=== PATIENT | female | born 1960 | race Caucasian/White ===

== ENCOUNTER 2021-09-02 10:12 | Outpatient (CLI) | payer OTHER, SELFPAY ==
--- NOTE | 2021-09-02 | ECG_ITS ---
Measurements Intervals [place] Rate: 62 P: 20 WA: 155 QRS: 21 QRSD: 97 T: 47 QT: 429 QTc: 437 Interpretive Statements SINUS RHYTHM INCOMPLETE RIGHT BUNDLE BRANCH BLOCK BASELINE ARTIFACT- I, III, AVR, AVL BORDERLINE ECG Electronically Signed On 09-02-2021 19:33:26 [employer]ARD[employer]ACH[employer]CH[employer]IC by Jovanni Cooney D.O.
--- NOTE | ~2021-09-02 | XR_ITS ---
EXAMINATION: XR chest 2V 09/02/2021 10:41 INDICATION: Dyspnea. Hypertension. PROCEDURE: 2 view chest COMPARISON: 02/24/2017 FINDINGS: The lungs are clear. The cardiomediastinal silhouette is within normal limits. There are no pleural effusions. There is no pneumothorax suspected. There is dextroscoliosis of the thoracic spine. IMPRESSION: 1: NO ACUTE CARDIOPULMONARY DISEASE. Reviewed, dictated and finalized at location A. BEADER
== END 2021-09-02 10:13 | disposition home or self-care (01) ==
PROVIDERS: PCP Registered Nurse; Visit Provider Registered Nurse
DX: R06.09 Other forms of dyspnea (principal); I45.10 Unspecified right bundle-branch block
CPT/HCPCS: 71046; 93005

== ENCOUNTER 2022-07-01 08:54 | Outpatient (CLI) | payer OTHER, SELFPAY ==
--- NOTE | ~2022-07-01 | MM_ITS ---
EXAMINATION: MM screening rohit BI w moises HISTORY: Screening mammogram TECHNIQUE: Craniocaudal and mediolateral oblique 3-D tomosynthesis images were obtained and synthetic 2-D images were generated. CAD analysis was submitted and interpreted. COMPARISON: 06/29/2018, 02/24/2017 bilateral screening mammogram examinations BREAST PARENCHYMAL COMPOSITION: There are scattered areas of fibroglandular density. FINDINGS: There is no evidence of suspicious mass, calcification, or architectural distortion to sugg est malignancy in either breast. There has been no suspicious interval change. IMPRESSION: 1. No mammographic evidence of malignancy. 2. Recommend routine screening mammography in one year. BI-RADS Category 1: Negative Reviewed, dictated and finalized at location A.
== END 2022-07-01 08:55 | disposition home or self-care (01) ==
LOC: ANHIMG 08:57
PROVIDERS: PCP Registered Nurse; Visit Provider Registered Nurse
DX: Z12.31 Encounter for screening mammogram for malignant neoplasm of breast (principal)
CPT/HCPCS: 77063; 77067

== ENCOUNTER 2022-10-18 12:25 | Outpatient (CLI) | payer OTHER, SELFPAY ==
--- NOTE | ~2022-10-18 | US_ITS ---
US breast LT limited DATE: 10/18/2022 13:03 INDICATION: Possible-like discharge from the breast. Recent trauma. Recent course of antibiotic thera py. TECHNIQUE: Limited real-time imaging of the left breast COMPARISON: 07/01/2022 bilateral screening mammogram FINDINGS: Approximately 3.9 x 2.4 x 8.1 mm sonolucency is noted in the subareolar area of the left br east which may be cysts or dilated ducts. No suspicious mass or shadowing or other suspicious findings noted. IMPRESSION: BI-RADS Category 2: Benign Recommendation routine annual mammographic screening Reviewed, dictated and finalized at Location A. Reviewed, dictated and finalized at location A. ADMINISTRATOR
== END 2022-10-18 12:26 | disposition home or self-care (01) ==
LOC: ANHIMG 12:25
PROVIDERS: PCP Registered Nurse; Visit Provider Registered Nurse
DX: N64.52 Nipple discharge (principal)
CPT/HCPCS: 76642

== ENCOUNTER 2023-11-28 13:53 | Outpatient (CLI) | payer MEDICARE, SELFPAY ==
--- NOTE | ~2023-11-28 | MM_ITS ---
EXAMINATION: MM screening rohit BI w moises HISTORY: Screening mammogram TECHNIQUE: Craniocaudal and mediolateral oblique 3-D tomosynthesis images were obtained and synthetic 2-D images were generated. CAD analysis was submitted and interpreted. COMPARISON: 10/18/2022 Limited left breast ultrasound 07/01/2022, 06/29/2018 bilateral screening mammogram examinations BREAST PARENCHYMAL COMPOSITION: There are scattered areas of fibroglandular density. FINDINGS: There is no evidence of suspicious mass, calcification, or architectural distortion to sugg est malignancy in either breast. There has been no suspicious interval change. IMPRESSION: 1. No mammographic evidence of malignancy. 2. Recommend routine screening mammography in one year. BI-RADS Category 1: Negative Reviewed, dictated and finalized at location A. GER ECONOMIC
== END 2023-11-28 13:54 | disposition home or self-care (01) ==
PROVIDERS: PCP Registered Nurse; Visit Provider Registered Nurse
DX: Z12.31 Encounter for screening mammogram for malignant neoplasm of breast (principal)
CPT/HCPCS: 77063; 77067

== ENCOUNTER 2024-03-05 02:17 | Day surgery (SDC) | payer MEDICARE, SELFPAY ==
[2024-02-20 15:23] VITALS: BMI 30.9
[2024-03-05 09:42] VITALS: BP 134/84; PULSE 102; RESP 18; TEMP 36.1; O2SAT 99
[2024-03-05] MEDS: LACTATED RINGERS 1,000 ML 150 ML IV CONT (09:52)
--- NOTE | 2024-03-05 10:11 | WPDANESEPPF ---
Anes - Initial Pre Proc Eval Procedure: Operation Date: 03/05/24 11:00 Proposed Procedures p Colonoscopy - Nikita Mendoza MD Date/Time: 03/05/24 10:11 Surgeon: Nikita Mendoza MD Pre Op Diagnosis: hx colon polyps Patient Data Age: 63 Gender: F Height: 1.68 m Weight: 82.3 kg Last Vital Signs Temp 97 F L 03/05/24 09:42 Pulse 102 H 03/05/24 09:42 Resp 18 03/05/24 09:42 BP 134/84 03/05/24 09:42 Pulse Ox 99 03/05/24 09:42 O2 Del Method Room Air 03/05/24 09:42 Allergies Allergy/AdvReac Type Severity Reaction Status Date / Time No Known Allergies Allergy Unverified 03/05/24 09:41 Home Medications Medication Instructions Recorded Confirmed Type amlodipine 5 mg tablet 5 mg PO DAILY 02/20/24 02/20/24 History cetirizine 10 mg tablet 10 mg PO DAILY 02/20/24 02/20/24 History gabapentin 600 mg tablet 600 mg PO TID PRN Pain 02/20/24 02/20/24 History gemfibrozil 600 mg tablet 600 mg PO BID 02/20/24 02/20/24 History hydrochlorothiazide 25 mg tablet 25 mg PO DAILY 02/20/24 02/20/24 History losartan 50 mg tablet 50 mg PO DAILY 02/20/24 02/20/24 History Patient hx anesthesia problems: none Family hx anesthesia problems: none Results Review: All pre-operative results and documents have been reviewed as part of the pre-operative evaluation. [facility] Social History Social History Smoking packs per day: 2 Smoking cigarettes per day: 40.0 Years smoked: 40 Smoking pack-years: 80.00 Smoking status: Former smoker Tobacco type: cigarettes Alcohol intake: current Drinks per week: 10 Spiritual care concerns: No Anes - Eval Final PreProcedure Day of Procedure 03/05/24 10:11 Patient weight: normal Heart: regular rate and rhythm Lungs: clear to auscultation Airway: Mallampati scale class II Neurological: alert and oriented Last oral intake: >/= 8 hours ASA classification: II Emergent: no Anesthetic plan: proceed Anesthesia type and monitoring: general and standard monitoring Results Review: All pre-operative results and documents have been reviewed as part of the pre-operative evaluation. Informed Consent: The patient's anesthetic plan and its attendant risks and benefits were discussed with the patient/family/POA. Questions were solicited and answers provided to the satisfaction of the patient/family/POA.
--- NOTE | 2024-03-05 10:35 | PM.HPGS ---
History of Present Illness History of Present Illness Consent: Risks, benefits, and alternatives have been discussed and questions answered. Patient agrees to proceed with procedure. Chief complaint: hx colon polyps Narrative: Kiki Sunshine is a 63 year old female with colon polyp 5-6 years ago Review of Systems Review of Systems: All systems reviewed & are unremarkable except as noted in HPI and below PMFSH Past Medical History Medical History (Updated 03/05/24 @ 10:37 by Nikita Mendoza MD) Colon polyp Social History Social History Smoking packs per day: 2 Smoking cigarettes per day: 40.0 Years smoked: 40 Smoking pack-years: 80.00 Smoking status: Former smoker Tobacco type: cigarettes Alcohol intake: current Drinks per week: 10 Spiritual care concerns: No Meds Home Medications and Allergies Home Medications Medication Instructions Recorded Confirmed Type amlodipine 5 mg tablet 5 mg PO DAILY 02/20/24 02/20/24 History cetirizine 10 mg tablet 10 mg PO DAILY 02/20/24 02/20/24 History gabapentin 600 mg tablet 600 mg PO TID PRN Pain 02/20/24 02/20/24 History gemfibrozil 600 mg tablet 600 mg PO BID 02/20/24 02/20/24 History hydrochlorothiazide 25 mg tablet 25 mg PO DAILY 02/20/24 02/20/24 History losartan 50 mg tablet 50 mg PO DAILY 02/20/24 02/20/24 History Allergies Allergy/AdvReac Type Severity Reaction Status Date / Time No Known Allergies Allergy Unverified 03/05/24 09:41 Vital Signs Vital Signs - 24 hr 03/05/24 09:42 Temperature 97 F L Pulse Rate 102 H Respiratory Rate 18 Blood Pressure 134/84 Pulse Oximetry 99 Oxygen Delivery Room Air Exam Const: General: comfortable and no acute distress HENMT: Face/Nose/Sinus: Normal nares present Eyes: General: appearance normal, both eyes and all related structures Neck: Neck: no JVD Resp: Auscultation: clear to auscultation bilaterally Cardio: Rate: regular rate Rhythm: regular rhythm GI: Inspection: non-distended GI Palp: Yes Soft to palpation Skin: General skin exam: normal color Neuro: General: gait normal Speech: normal speech Extrem: General: normal to inspection Psych: Mental Status: mental status grossly normal Assessment and Plan Assessment and plan (1) Colon polyp: Code(s): K63.5 - Polyp of colon Status: Acute Assessment and Plan: colonoscopy
[2024-03-05 10:53] VITALS: BP 133/62; PULSE 78; RESP 21; O2SAT 100
[2024-03-05 11:03] VITALS: BP 134/63; PULSE 68; RESP 22; O2SAT 100
[2024-03-05 11:13] VITALS: BP 145/76; PULSE 64; RESP 22; O2SAT 100
== END 2024-03-05 11:25 | disposition home or self-care (01) ==
PROVIDERS: PCP Registered Nurse; Visit Provider Internal Medicine Gastroenterology
PROC: 0DJD8ZZ Inspection of Lower Intestinal Tract, Via Natural or Artificial Opening Endoscopic (ICD-10-PCS; CPT 45378; principal; 2024-03-05 11:00)
DX: Z12.11 Encounter for screening for malignant neoplasm of colon (principal); K63.5 Polyp of colon; K64.8 Other hemorrhoids; K57.30 Diverticulosis of large intestine without perforation or abscess without bleeding; Z87.891 Personal history of nicotine dependence
CPT/HCPCS: 45385; 88305; J2704; J7120

== ENCOUNTER 2024-05-02 08:52 | Outpatient (CLI) | payer MEDICARE, SELFPAY ==
--- NOTE | ~2024-05-02 | DEXA_ITS ---
Bone Density Report Name: KAYLEY DYKES Age: 63 Sex: Female Ethnicity: White Date of : 1960 Indication: postmenopausal; screening for osteoporosis; height loss; history of glucocorticoids; Referring Provider: BEATA, CARLOZ Study: Bone densitometry was performed. Exam Date: May 02, 2024 Accession number: [id number] Bone Density: Region BMD T-score Z-score Classification AP Spine(L1-L4) 1.070 0.2 2.0 Normal Femoral Neck (Left) 0.717 -1.2 0.4 Osteopenia Total Hip (Left) 0.968 0.2 1.5 Normal Femoral Neck (Right) 0.778 -0.6 0.9 Normal Total Hip (Right) 1.036 0.8 2.0 Normal Total Hip Mean 1.002 0.5 1.8 Normal World Health Organization criteria for BMD impression classify patients as: Normal (T-score at or above -1.0), Osteopenia (T-score between -1.0 and -2.5), or Osteoporosis (T-score at or below -2.5). 10-year Fracture Risk(1): Major Osteoporotic Fracture 15% Hip Fracture 1.9% Reported Risk Factors: [place] (), Neck BMD=0.717, BMI=31.0, glucocorticoids, alcohol use (1) FRAX(R) Version 3.08. Fracture probability calculated for an untreated patient. Fracture probability may be lower if the patient has received treatment. Previous Exams: Region Exam Age BMD T-score BMD Change BMD Change Date g/cm2 vs Baseline vs Previous Total Hip(Left) 05/02/2024 63 0.968 0.2 0.063 (7.0%)* 0.063 (7.0%)* 01/01/2019 58 0.905 -0.3 Total Hip(Right) 05/02/2024 63 1.036 0.8 0.122 (13.4%)* 0.122 (13.4%)* 01/01/2019 58 0.913 -0.2 *Denotes significance at 95% confidence level, LSC for Total Hip = 0.027 g/cm2 Clinical Information Provided by Patient: Has taken Glucocorticoids Has 3 or more alcoholic drinks per day Has used the following medications: Vitamin D Patient maximum height was 67.0 Menopause Age: 38 No regular weight bearing exercise Drinks caffeinated beverages Onset of menses at age 11 Number of children 1 Impression: The patient has low bone mass, based on the Left Femoral Neck T-score. The patient has an estimated ten-year risk of hip fracture of 1.9% and an estimated ten-year risk of major fracture of 15%, based on the WHO FRAX algorithm. The patient has risk factors, including: excessive alcohol use, history of glucocorticoid therapy. No significant bone loss was observed. Discussion: BONE DENSITY IS LOW AT ONE OR MORE SKELETAL SITES. This patient's lowest T-score is low at one or more skeletal sites. It meets the Wo
== END 2024-05-02 08:53 | disposition home or self-care (01) ==
PROVIDERS: PCP Registered Nurse; Visit Provider Registered Nurse
DX: Z78.0 Asymptomatic menopausal state (principal); M85.852 Other specified disorders of bone density and structure, left thigh
CPT/HCPCS: 77080

== ENCOUNTER 2025-05-02 06:53 | Outpatient (CLI) | payer MEDICARE, SELFPAY ==
--- NOTE | ~2025-05-02 | XR_ITS ---
Clinical Indication: Hypoxemia PA and lateral views of the chest: Comparison: 09/02/2021 Findings: Patchy left lower lobe airspace consolidations compatible with pneumonia. Right lung clear. Cardiomediastinal silhouette is within normal limits. Bones and soft tissues are unremarkable. Impression: Patchy left lower lobe pneumonia. Reviewed, dictated and finalized at location . Impression: Patchy left lower lobe pneumonia.
== END 2025-05-02 06:54 | disposition home or self-care (01) ==
PROVIDERS: PCP Registered Nurse; Visit Provider Registered Nurse
DX: R09.02 Hypoxemia (principal); R91.8 Other nonspecific abnormal finding of lung field
CPT/HCPCS: 71046

== ENCOUNTER 2025-05-03 15:21 | Inpatient (IN) | payer MEDICARE, SELFPAY ==
--- NOTE | ~2025-05-03 | XR_ITS ---
XR chest 2V Ordering provider: SRAVAN Fournier History: 64 years Female with . PNA . Comparison: May 03, 2025 FINDINGS: MEDIASTINUM: The cardiac silhouette is not enlarged. LUNGS: No effusions or pneumothorax. Opacification in the left lung base is seen suggestive of atelec tasis versus pneumonia. OTHER: No free air under the diaphragm. Degenerative spine. IMPRESSION: Left basilar atelectasis versus pneumonia. Reviewed, dictated and finalized at location A.
--- NOTE | ~2025-05-03 | CT_ITS ---
CTA brain carotid Ordering provider: Al Méndez MD History: . dizziness, difficulty speaking . Comparison: None. Technique: CT angiogram head and neck was performed following timed intravenous injection of contrast . Thin slice axial images and reformatted coronal images were obtained. Three dimensional reformatted images of the brain were also obtained using a [employer] workstation. Radiation reduction technique ut ilized. The dose-length product was 1521.927 mGy-cm. FINDINGS: HEAD: --ANTERIOR AND MIDDLE CEREBRAL ARTERIES AND BRANCHES: Normal caliber and contour. --INTERNAL CAROTID ARTERIES: Mild atherosclerotic changes. No significant stenosis. No occlusion. --BASILAR ARTERY AND BRANCHES: Normal caliber and contour. No atheromatous disease. --POSTERIOR CEREBRAL ARTERIES: Normal caliber and contour --POSTERIOR COMMUNICATING ARTERIES: Not visualized which is probably related to congenital absence or small size. --ANEURYSM: None visualized. --BRAIN: Brain atrophy with deep white matter ischemic changes. --BONES AND SUPERFICIAL SOFT TISSUES: Normal. --PARANASAL SINUSES AND MASTOIDS: Well aerated. NECK: --RIGHT CERVICAL CAROTID SYSTEM: Mild atheromatous disease of the carotid bulb and proximal internal carotid artery without significant stenosis. Percent stenosis per NASCET criteria is 20%. No carotid dissection. Otherwise, no significant atheromatous disease or stenosis of the cervical carotid syste m. --LEFT CERVICAL CAROTID SYSTEM: Mild atheromatous disease of the carotid bulb and proximal internal c arotid artery without significant stenosis. Percent stenosis per NASCET criteria is 60%. No carotid dissection. Otherwise, no significant atheromatous disease or stenosis of the cervical carotid system. --VERTEBRAL ARTERIES: Normal caliber and contour. --VISUALIZED AORTIC ARCH AND BRANCHING VESSELS: Mild atheromatous disease but no significant stenosis . --SOFT TISSUES: Left basilar atelectasis versus pleural effusion. Dependent atelectatic changes. --CERVICAL SPINE: Age appropriate degenerative changes. IMPRESSION: 1. Normal CTA head. 2. CTA neck. Percent stenosis per NASCET criteria is 20% on the right and 60% on the left . 3. Left basilar atelectasis versus pneumonia with pleural effusion. Reviewed, dictated and finalized at location A. IMPRESSION: 1. Normal CTA head. 2. CTA neck. Percent stenosis per NASCET criteria is 20% on the right and 60 % on the left . 3. Left basilar atelectasis versus pneumonia with pleural effusion.
--- NOTE | ~2025-05-03 | XR_ITS ---
XR chest 2V Ordering provider: Dylan Mills MD History: 64 years Female with . SOB . Comparison: May 02, 2025 FINDINGS: MEDIASTINUM: The cardiac silhouette is not enlarged. LUNGS: No effusions or pneumothorax. Minimal opacification in the left lower lobe is seen suggestive of atelectasis versus pneumonia. No significant change from previous examination. OTHER: No free air under the diaphragm. Degenerative spine. IMPRESSION: Left basilar atelectasis versus pneumonia with no change from previous examination. Reviewed, dictated and finalized at location A. IMPRESSION: Left basilar atelectasis versus pneumonia with no change from previous examinat ion.
--- OUTSIDE RECORDS SUMMARY | 2025-05-03 15:23 | XMS_ITS | Clinical Summary ---
Author Organization [facility] Address [address], [address] [address] Phone Care Team Providers Care Plaster [employer] Worker Name Role Phone Cornelius vOiedo MANOLO Primary Care Provider [phone] Social History Tobacco Use Types Packs/Day Years Used Date Smoking Tobacco: Never Assessed Comments Unknown Sex and Gender Information Value Date Recorded Sex Assigned at Not on file Legal Sex Female 10:31 PM CDT Gender Identity Not on file Sexual Orientation Not on file Plan of Treatment Health Maintenance Due Date Last Done Comments DEXA Bone Density 1960 Hepatitis C Virus (HCV) Screening 1960 Pap Smear 1979 Cervical Cancer Screening (CCS) 1988 HPV/Cotest 1988 Cologuard 2008 Immunochemical Fecal Occult Blood 2008 Mammogram 2008 Pneumococcal Immunization (50+ years) (1 of 1 - PCV) 2008 Zoster Immunization (1 of 2) 2008 Colonoscopy 12/17/2023 12/17/2018 Colorectal Cancer Screening 12/17/2023 Influenza Immunization (#1) 06/23/202406/23, 07/10/2018, 06/30/2017, Additional history exists SARS-COV-2 Immunization (3 - season) 2024 12/21/2020, 11/30/2020 Respiratory Syncytial Virus (RSV) Immunization (Adult) (1 - 1-dose 75+ series) 2033 DTaP/Tdap/Td Immunization Discontinued 02/22/2017 TdaP Immunization Completed 02/22/2017 Hepatitis B Immunization Aged Out No longer eligible based on patient's age to complete this topic Meningococcal Immunization (ACWY) Aged Out No longer eligible based on patient's age to complete this topic Rotavirus Immunization Aged Out No lo nger eligible based on patient's age to complete this topic Procedures Procedure Name Priority Date/Time Associated Diagnosis Comments COLONOSCOPY Routine 12/17/2018 from Last 3 Months or Most Recently Relevant to Health Maintenance Results * COLONOSCOPY (12/17/2018) us Richardson Kim DO PROCEDURE/MINOR SURGICAL ORDERA BLES Final Result from Last 3 Months or Most Recently Relevant to Health Maintenance Care Teams Pl[employer] And Stucco Worker Relationship Specialty Start Date End Date Cornelius Oviedo APRN [address] [place] [address] PCP - General Advanced Practice Nurse 09/05/18
--- OUTSIDE RECORDS SUMMARY | 2025-05-03 15:23 | XMS_ITS | Encounter Summary ---
Author Organization [facility] Address [address] [place] [id number] Care Team Providers Care [facility] Worker Name Role Phone Cornelius Oviedo BETY Primary Care Provider [phone] Encounter Details Date Type Department Care Team (Late st Contact Info) Description 01/03/2024 Abstract [facility], [facility] [address] [place], [place] [id number] Ailyn Aggarwal MA Social History Tobacco Use Types Packs/Day Years Used Date Smoking Tobacco: Former Cigarettes Q uit: 2012 Smokeless Tobacco: Never Alcohol Use Standard Drinks/Week Comments Yes 13.3 (1 standard drink = 0.6 oz pure alcohol) Comments Unknown Sex and Gender Information Value Date Recorded Sex Assigned at Not on file Legal Sex Female 10:59 AM MEDICAL BILLER/CODER Gender Identity Not on file Sexual Orientation Not on file documented as of this encounter Plan of Treatment Upcoming Encounters Date Type Department Care Team (Late st Contact Info) Description 04/14/2026 9:00 AM CDT Office Visit [facility], [place] [address] [place] [address] Osito Franklin MD [facility], [address] [place], [place] [address] documented as of this encounter Procedures Procedure Name Priority Date/Time Associated Diagnosis Comments COMPREHENSIVE METABOLIC PANEL Routine 01/24/2023 LIPID PANEL Routine 01/24/2023 CBC, MANUAL DIFF Routine 01/24/2023 documented in this encounter Results * COMPREHENSIVE METABOLIC PANEL (01/24/2023) Pathologist [facility] SODIUM S/P/B 139 GLUCOSE 99 mg/dL AST 48.5 BUN 12 CREATININE S/P/B 0.51 0.5 - 1.0 CALCIUM S/P/B 10.4 POTASSIUM S/P/B 4.0 CHLORIDE S/P/B 96 ALT 43.5 GFR ESTIMATE 104 us Default History Genericprovider LABORATORY Final Result * LIPID PANEL (01/24/2023) Pathologist [facility] CHOLESTEROL 201.6 TRIGLYCERIDES 107 HDL 105.2 LDL (CALCULATED) 78.3 us Default History Genericprovider LABORATORY Final Result * CBC, MANUAL DIFF (01/24/2023) Pathologist [facility] WBC 5.9 HGB 14.2 HCT 43.6 PLT 193 us Default History Genericprovider LABORATORY Final Result documented in this encounter Visit Diagnoses Not on filedocumented in this encounter Care Teams [facility] Worker Relationship Specialty Start Date End Date Cornelius Oviedo CNP PCP - General NURSE PRACTITIONER 11/20/23 documented as of this encounter
--- OUTSIDE RECORDS SUMMARY | 2025-05-03 15:23 | XMS_ITS | Clinical Summary ---
Author Organization [facility] Address [address] [place] [address] Care Team Providers Care Tennis Instructor Name Role Phone Cornelius Oviedo CNP Primary Care Provider [phone] Allergies No known active allergies Medications amLODIPine (NORVASC) 5 MG tablet Take 1 tablet (5 mg total) by mouth daily. Active hydroCHLOROthia zide (HYDRODIURIL) 25 MG tablet Take 1 tablet (25 mg total) by mouth daily. Active losartan (COZAAR) 50 MG tablet Take 1 tablet (50 mg total) by mouth daily. Active gabapentin (NEURONTIN) 600 MG tablet Take 1 tablet (600 mg total) by mouth 3 (three) times daily. 02/01/2024 Active gemfibrozil (LOPID) 600 MG tablet Take 1 tablet (600 mg total) by mouth 2 (two) times daily. 03/20/2024 Active cetirizine (ZYRTEC) 10 MG tablet Take 1 tablet (10 mg total) by mouth daily. Active atorvastatin (LIPITOR) 10 MG tablet Take 1 tablet (10 mg total) by mouth nightly at bedtime. 30 tablet 2 04/01/2025 Active Active Problems Problem Noted Date Diagnosed Date Essential (primary) hypertension 12/28/2023 Mixed hyperlipidemia 12/28/2023 LUTHER (dyspnea on exertion) 12/28/2023 Abnormal EKG 12/28/2023 Supraventricular bigeminy 12/28/2023 Encounters Date Type Department Care Team Description 04/01/2025 9:45 AM CDT Office Visit [facility], [address] [address] Osito Franklin MD Hypertension; Lipids; Follow Up (Annual.) 04/01/2025 Travel 03/06/2025 Results Follow-Up [facility], [address] [address] Deepa Interiano RN USE ECHOCARDIOGRAM 03/04/2025 8:00 AM CDT - 03/04/2025 11:59 PM CDT Hospital Encounter [facility] [place] [address] Osito Franklin MD Discharge Disposition: Home or Self Care (Routine Discharge) 03/04/2025 Travel from Last 3 Months Family History Medical History Relation Comments AAA Father Stroke Father Heart Disease Mother Relation Status Comments Brother 1 (Age 67) Brother 2 Alive Father (Age 55) Maternal Grandfather Maternal Grandmother (Age 89) Mother (Age 89) Paternal Grandfather Paternal Grandmother (Age 74) Sister 1 Alive Sister 2 Alive Social History Tobacco Use Types Packs/Day Years Used Date Smoking Tobacco: Former Cigarettes Q uit: 2012 Smokeless Tobacco: Never Tobacco Cessation:Counseling Given: Not Answered Alcohol Use Standard Drinks/Week Comments Yes 13.3 (1 standard drink = 0.6 oz pure alcohol) Comments Unknown Sex and Gender Information Value Date Recorded Sex Assigned at Not on file 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 Gender Identity Not on file Sexual Orientation Not on file Last Filed Vital Signs Vital Sign Reading Time Taken Comments Blood Pressure 120/80 04/01/2025 9:45 AM CDT Pulse 79 04/01/2025 9:45 AM CDT Temperature - - Respiratory Rate - - Oxygen Saturation 98% 04/01/2025 9:45 AM CDT Inhaled Oxygen Concentration - - Weight 85.1 kg (187 lb 9.6 oz) 04/01/2025 9:45 A M CDT Height 167.6 cm (5' 6) 03/26/2024 2:03 PM CDT Body Mass Index 30.28 03/26/2024 2:03 PM CDT Plan of Treatment Upcoming Encounters Date Type Department Care Team (Late st Contact Info) Description 04/14/2026 9:00 AM CDT Office Visit [facility], [address] [place] [address] Osito Franklin MD [facility] [address] [place] [address] Health Maintenance Due Date Last Done Comments Colorectal Cancer Screening Colonoscopy (10 Years) 1958 Hepatitis C 1976 Mammogram Screening 1998 Zoster Vaccines (1 of 2) 2008 RSV Immunization or 60+ Years (1 - Risk 60-74 years 1-dose series) 2018 Annual Medicare Wellness Visit 2023 Dexa Scan (General) 2023 COVID-19 Vaccine ( season) 2024 12/28/2020, 12/21/2020, 11/30/2020, Additional history exists DTaP, Tdap and Td Vaccines (2 - Td or Tdap) 02/22/2027 02/22/2017 Pneumococcal Vaccine: 50+ Years Completed 01/23/2025 Meningococcal B Vaccine Aged Out No l onger eligible based on patient's age to complete this topic Meningococcal Vaccine Aged Out No kenton remy eligible based on patient's age to complete this topic RSV Immunizations Under 20 Months Aged Out No longer eligible based on patient's age to complete this topic Procedures Procedure Name Priority Date/Time Associated Diagnosis Comments USE ECHOCARDIOGRAM Routine 03/04/2025 8: 31 AM CDT Moderate tricuspid regurgitation from Last 3 Months Results * USE ECHOCARDIOGRAM (03/04/2025 8:31 AM CDT) Anatomical Region Laterality Modality Cardiac Echocardiogram 03/04/2025 8:08 AM CDT Narrative 03/06/2025 11:38 AM CDT Echocardiography Report Pat.Name: KIKI SUNSHINE Pat.ID: [id number] .Date: 03/04/2025 Exam Time: 8:08:00 AM Study Type:ECHO WITH CARDIAC DOPPLER COMP Height: 66 in Weight: 188 lb BSA: 1.95 m2 Age: 11 1960,64Y Sex: F BP: 155/72 Sonogrphr: Leidy Kamara Pat. Stat.:Outpatient CPT - 4: [id number] Reason for Study:Moderate Tricuspid Regurgitation Procedures: 2D, M-mode, Doppler, Color Flow, The study quality is technically adequate. ++++++++++++++++++++++++++++++++++++ SUMMARY: ++++++++++++++++++++++++++++++++++++ The left ventricular size is normal. The left ventricular systolic function is normal. Estimated left ventricular ejection fraction is 60-65%. Mild concentric left ventricular hypertrophy. Left ventricular diastolic function is abnormal (grade 1 - impaired relaxation). The right ventricular size is mildly enlarged. Right ventricular systolic function is normal. Mild aortic regurgitation. Mild tricuspid regurgitation. ++++++++++++++++++++++++++++++++++++ FINDINGS: ++++++++++++++++++++++++++++++++++++ LV: The left ventricular size is normal. The left ventricular systolic function is normal. Estimated left ventricular ejection fraction is 60-65%. Mild concentric left ventricular hypertrophy. The septal E/e' is normal at < 8. The lateral E/e' is normal at <8. Left ventricular diastolic function is abnormal (grade 1 - impaired relaxation). WM: Wall motion appears normal in all segments. RV: The right ventricular size is mildly enlarged. Right ventricular systolic function is normal. TAPSE = 23.2mm (<16 mm indicates systolic RV dysfunction). IVS: Intraventricular septum is normal. LA: The left atrial volume is normal ( less than 34 ml/M2). RA: The right atrial size is normal. IAS: Atrial septum is normal. TROY: No evidence of pericardial effusion. AO: Normal aortic root. PA: The peak pulmonary artery systolic pressure is estimated to be approximately 20.0 mmHg. Estimated right atrial pressure of 3 mmHg. SVn: Inferior vena cava is normal. Inferior vena cava shows >50% collapse with respiration consistent with normal right atrial pressure. AV: The aortic valve is trileaflet. No evidence of aortic valve stenosis. Mild aortic regurgitation. MV: Trace mitral regurgitation. No evidence of mitral stenosis. PV: No evidence of pulmonic valve stenosis. No evidence of pulmonic regurgitation. TV: Mild tricuspid regurgitation. No evidence of tricuspid valve stenosis. ++++++++++++++++++++++++++++++++++++ MEASUREMENTS: ++++++++++++++++++++++++++++++++++++ DOPPLER Pulmonary Veins PVnpkVeld 46 cm/s Pulmonary Vein 0.57 m/s PVnVs/Vd 1.23 AR-wave velocit 0.33 m/s S1-wave velocit 0.57 m/s PVn A Dur 0.097 second TV Forward Flow TV E/A 1.09 Aortic Valve Cardiovascular 2.09 cm Aortic Root Jeanne 3.48 cm P1/2t 0.413 second Left atrial jeanne 4.03 cm LVOT/AoV (MAGISTRATE ASSISTANT) ( 0.5 AV Antegrade Flow Peak Velocity ( 1.4 m/s Mean Velocity ( 0.95 m/s Velocity Time I 29.7 cm AV Antegrade Flow Simplified Bernoulli Gradient pressu 7.8 mmHg Gradient pressu 4 mmHg AV Continuity Equation by Velocity Time Integral Aortic Valve Ar 1.96 cm2 AoV Area Index 1.01 AV Regurgitant Flow AR Vmax (Diasto 1.51 m/s Deceleration Ti 0.488 second AR Dylan (Diastol 0.99 m/s AR PGmax (Diast 9.6 mmHg Deceleration Sl 1.05 m/s2 Left Ventricle Stroke Volume ( 58.2 ml Cardiac Output 4.77 liter per minute LV Antegrade Flow Peak Velocity ( 0.7 m/s Mean Velocity ( 0.51 m/s Velocity Time I 17 cm LV Antegrade Flow Simplified Bernoulli Gradient pressu 2 mmHg Gradient pressu 1.2 mmHg Mitral Valve Mitral Valve E- 0.15 second Mean Myocardial 8.4 centimeter/second Myocardial Velo 10.8 centimeter/second Ratio of Mitral 7.69 Myocardial Velo 6 centimeter/second Ratio of Mitral 5.98 Mitral Valve E 0.75 Ratio of Mitral 10.8 MV Antegrade Flow Mitral Valve E- 0.65 m/s Mitral Valve A- 0.86 m/s PV Antegrade Flow Peak Velocity ( 0.97 m/s Mean Velocity ( 0.67 m/s Velocity Time I 20.2 cm PV Vmax (Diasto 0.83 m/s PV Antegrade Flow Simplified Bernoulli Gradient pressu 3.8 mmHg PV PGmax (Systo 2.7 mmHg Gradient pressu 1.9 mmHg Tricuspid Valve Tricuspid Valve 0.41 m/s Tricuspid Valve 0.37 m/s TV Regurgitant Flow MaximumTricuspi 2.07 m/s MaximumTricuspi 17.2 mmHg 2D Left Ventricle LVIDd 4.66 cm (3.6-5.2) LVEDV BP 56.5 ml LV EDV 61.3 ml LVESV BP 22.6 ml LV ESV 19.8 ml LV EF 67.7 % LV EDV 50.9 ml Left Ventricula -16.8 % LV ESV 24.6 ml LV EF 51.7 % LV EF BP 60 % Left Ventricula -10.4 % Left Ventricula -13.6 % Left Atrium Left Atrium Vol 21 ml/m2 LA Biplane Left Atrium Vol 41 ml LA Single Plane Left Atrium sakina 5.4 cm Left Atrium sakina 6.33 cm Left Atrium Vol 39.5 ml Left Atrium Vol 37 ml LV Teichholz Interventricula 0.95 cm Left Ventricle 3 cm Left Ventricle 0.92 cm Heart rate 64 Heart beat per minute Right Atrium RA sys Area 12.6 cm2 Right Ventricle Right Ventricul 3.9 cm RVIDd 3.93 cm MMODE Tricuspid Valve Tricuspid annul 2.32 cm <Electronic Signature> 03/06/2025 11:38 AM Osito Franklin M.D. Procedure Note Osito Franklin MD - 03/06/2025 Echocardiography Report Pat.Name: KIKI SUNSHINE Pat.ID: [id number] St.Date: 03/04/2025 Exam Time: 8:08:00 AM Study Type:ECHO WITH CARDIAC DOPPLER COMP Height: 66 in Weight: 188 lb BSA: 1.95 m2 Age: 11 1960,64Y Sex: F BP: 155/72 Sonogrphr: Leidy Kamara Pat. Stat.:Outpatient CPT - 4: [id number] Reason for Study:Moderate Tricuspid Regurgitation Procedures: 2D, M-mode, Doppler, Color Flow, The study quality is technically adequate. ++++++++++++++++++++++++++++++++++++ SUMMARY: ++++++++++++++++++++++++++++++++++++ The left ventricular size is normal. The left ventricular systolic function is normal. Estimated left ventricular ejection fraction is 60-65%. Mild concentric left ventricular hypertrophy. Left ventricular diastolic function is abnormal (grade 1 - impaired relaxation). The right ventricular size is mildly enlarged. Right ventricular systolic function is normal. Mild aortic regurgitation. Mild tricuspid regurgitation. ++++++++++++++++++++++++++++++++++++ FINDINGS: ++++++++++++++++++++++++++++++++++++ LV: The left ventricular size is normal. The left ventricular systolic function is normal. Estimated left ventricular ejection fraction is 60-65%. Mild concentric left ventricular hypertrophy. The septal E/e' is normal at < 8. The lateral E/e' is normal at <8. Left ventricular diastolic function is abnormal (grade 1 - impaired relaxation). WM: Wall motion appears normal in all segments. RV: The right ventricular size is mildly enlarged. Right ventricular systolic function is normal. TAPSE = 23.2mm (<16 mm indicates systolic RV dysfunction). IVS: Intraventricular septum is normal. LA: The left atrial volume is normal ( less than 34 ml/M2). RA: The right atrial size is normal. IAS: Atrial septum is normal. TROY: No evidence of pericardial effusion. AO: Normal aortic root. PA: The peak pulmonary artery systolic pressure is estimated to be approximately 20.0 mmHg. Estimated right atrial pressure of 3 mmHg. SVn: Inferior vena cava is normal. Inferior vena cava shows >50% collapse with respiration consistent with normal right atrial pressure. AV: The aortic valve is trileaflet. No evidence of aortic valve stenosis. Mild aortic regurgitation. MV: Trace mitral regurgitation. No evidence of mitral stenosis. PV: No evidence of pulmonic valve stenosis. No evidence of pulmonic regurgitation. TV: Mild tricuspid regurgitation. No evidence of tricuspid valve stenosis. ++++++++++++++++++++++++++++++++++++ MEASUREMENTS: ++++++++++++++++++++++++++++++++++++ DOPPLER Pulmonary Veins PVnpkVeld 46 cm/s Pulmonary Vein 0.57 m/s PVnVs/Vd 1.23 AR-wave velocit 0.33 m/s S1-wave velocit 0.57 m/s PVn A Dur 0.097 second TV Forward Flow TV E/A 1.09 Aortic Valve Cardiovascular 2.09 cm Aortic Root Jeanne 3.48 cm P1/2t 0.413 second Left atrial jeanne 4.03 cm LVOT/AoV (MAGISTRATE ASSISTANT) ( 0.5 AV Antegrade Flow Peak Velocity ( 1.4 m/s Mean Velocity ( 0.95 m/s Velocity Time I 29.7 cm AV Antegrade Flow Simplified Bernoulli Gradient pressu 7.8 mmHg Gradient pressu 4 mmHg AV Continuity Equation by Velocity Time Integral Aortic Valve Ar 1.96 cm2 AoV Area Index 1.01 AV Regurgitant Flow AR Vmax (Diasto 1.51 m/s Deceleration Ti 0.488 second AR Dylan (Diastol 0.99 m/s AR PGmax (Diast 9.6 mmHg Deceleration Sl 1.05 m/s2 Left Ventricle Stroke Volume ( 58.2 ml Cardiac Output 4.77 liter per minute LV Antegrade Flow Peak Velocity ( 0.7 m/s Mean Velocity ( 0.51 m/s Velocity Time I 17 cm LV Antegrade Flow Simplified Bernoulli Gradient pressu 2 mmHg Gradient pressu 1.2 mmHg Mitral Valve Mitral Valve E- 0.15 second Mean Myocardial 8.4 centimeter/second Myocardial Velo 10.8 centimeter/second Ratio of Mitral 7.69 Myocardial Velo 6 centimeter/second Ratio of Mitral 5.98 Mitral Valve E 0.75 Ratio of Mitral 10.8 MV Antegrade Flow Mitral Valve E- 0.65 m/s Mitral Valve A- 0.86 m/s PV Antegrade Flow Peak Velocity ( 0.97 m/s Mean Velocity ( 0.67 m/s Velocity Time I 20.2 cm PV Vmax (Diasto 0.83 m/s PV Antegrade Flow Simplified Bernoulli Gradient pressu 3.8 mmHg PV PGmax (Systo 2.7 mmHg Gradient pressu 1.9 mmHg Tricuspid Valve Tricuspid Valve 0.41 m/s Tricuspid Valve 0.37 m/s TV Regurgitant Flow MaximumTricuspi 2.07 m/s MaximumTricuspi 17.2 mmHg 2D Left Ventricle LVIDd 4.66 cm (3.6-5.2) LVEDV BP 56.5 ml LV EDV 61.3 ml LVESV BP 22.6 ml LV ESV 19.8 ml LV EF 67.7 % LV EDV 50.9 ml Left Ventricula -16.8 % LV ESV 24.6 ml LV EF 51.7 % LV EF BP 60 % Left Ventricula -10.4 % Left Ventricula -13.6 % Left Atrium Left Atrium Vol 21 ml/m2 LA Biplane Left Atrium Vol 41 ml LA Single Plane Left Atrium sakina 5.4 cm Left Atrium sakina 6.33 cm Left Atrium Vol 39.5 ml Left Atrium Vol 37 ml LV Teichholz Interventricula 0.95 cm Left Ventricle 3 cm Left Ventricle 0.92 cm Heart rate 64 Heart beat per minute Right Atrium RA sys Area 12.6 cm2 Right Ventricle Right Ventricul 3.9 cm RVIDd 3.93 cm MMODE Tricuspid Valve Tricuspid annul 2.32 cm <Electronic Signature> 03/06/2025 11:38 AM Osito Franklin M.D. us Osito Franklin MD ECHO Final Res ult from Last 3 Months Insurance MEDICARE GENERIC - COMMERCIAL Care Teams Tennis Instructor Relationship Specialty Start Date End Date Cornelius Oviedo CNP PCP - General NURSE PRACTITIONER 11/20/23
--- OUTSIDE RECORDS SUMMARY | 2025-05-03 15:23 | XMS_ITS | Data Portability ---
Author Organization [facility] OFFICE Address [address] [place] [address] Care Team Providers Care Wound Treatment Rn Name Role Phone CARLOZ COTA Primary Care Provider Assessment Encounter Date Assessment Date Assessment LastModified by Organization Details LastModified Time 03/16/2022 03/16/2022 Discussed with patient findings, diagnosis, and prognosis. Discussed evaluation and treatment options including risks and benefits with patient, and patient expressed understanding. The following interventions were recommended: heart healthy low-fat, low-sodium diet, avoid strenuous exercise pending completion of cardiovascular evaluation,mainta in appropriate weight, continue current medications, and medical follow-up as noted. Not available 03/16/2022 17:58:03 06/07/2022 06/07/2022 Discussed with patient findings, diagnosis, and prognosis. Discussed evaluation and treatment options including risks and benefits with patient, and patient expressed understanding. The following interventions were recommended: heart healthy low-fat, low-sodium diet, continue regular exercise,maintain appropriate weight, continue current medications, and medical follow-up as noted. Not available 06/07/2022 11:51:45 01/20/2023 01/20/2023 Discussed with patient findings, diagnosis, and prognosis. Discussed evaluation and treatment options including risks and benefits with patient, and patient expressed understanding. The following interventions were recommended: heart healthy low-fat, low-sodium diet, continue regular exercise,maintain appropriate weight, continue current medications, and medical follow-up as noted. [email or web address] Not available 01/20/2023 10:29:24 Plan of Treatment Reminders Order Date Submit Date Provider Last Modified By Organization Details Last Modified Time Details Appointments None recorded. Lab None recorded. Referral None recorded. Procedures None recorded. Surgeries None recorded. Imaging electrocar diogram 2021 022 TRI[facility] Not available 2 18:39:09 electrocar diogram 2021 022 [facility] Not available 18:39:27 electrocar diogram 2018 019 [facility] Not available 9 18:03:43 electrocar diogram 2018 019 [email or web address] Not available 9 16:42:59 electrocar diogram 2017 018 [email or web address] Not available 8 18:44:51 Medication Orders hydrochlor othiazide 25 mg tablet 2018 019 [id number], [facility] [address] , [place], [address], 9 16:43:09 Cozaar 25 mg tablet 2018 019 [email or web address] 028 [facility], [facility] [address], [place], [address], 2 16:02:19 magnesium oxide 400 mg (241.3 mg magnesium) tablet 2018 019 [email or web address] 028 [facility], [facility] [address] , [place], [address], 2 16:02:28 pravastati n 40 mg tablet 2018 019 [email or web address] 028 [facility] [address] In [facility], [facility] [address], [place], [address], 2 16:02:36 hydrochlor othiazide 25 mg tablet 2017 018 [facility]FACE [facility] In [facility], [facility] [address] , [place], [address], 8 14:54:20 Cozaar 25 mg tablet 2017 018 [email or web address] 028 [facility] [address] In [place] [address], [place], [address], 16:02:19 magnesium oxide 400 mg (241.3 mg magnesium) tablet 2017 018 [email or web address] 028 [facility] [address] In [place] [address] , [place], [address], 16:02:28 pravastati n 40 mg tablet 2017 018 [email or web address] 028 [facility] In [place] [address] , [place], [address], 16:02:36 Patient TargetsNo targets recorded. Patient Instructions Encounter Date Encounter Id Patient Instructions Last Modified By Organization Details Last Modified Time 04/12/2018 [id number] high blood pressure: care instructions [email or web address] Not available 04/12/2018 14:54:17 learning about high blood pressure [email or web address] Not available 04/12/2018 14:54:17 high cholesterol : care instructions [email or web address] Not available 04/12/2018 14:54:17 This document wa s scribed by Yuliya meléndez Not available 04/12/2018 14:42:05 03/28/2019 [id number] high blood pressure: care instructions [email or web address] Not available 03/28/2019 16:42:59 learning about high blood pressure [email or web address] Not available 03/28/2019 16:42:59 high cholesterol : care instructions [email or web address] Not available 03/28/2019 16:42:59 03/16/2022 [id number] high blood pressure: care instructions [email or web address] Not available 03/16/2022 18:00:22 learning about high blood pressure [email or web address] Not available 03/16/2022 18:00:22 high cholesterol : care instructions Not available 03/16/2022 18:00:22 06/07/2022 [id number] high blood pressure: care instructions Not available 06/07/2022 11:53:33 learning about high blood pressure [email or web address] Not available 06/07/2022 11:53:33 high cholesterol : care instructions [email or web address] Not available 06/07/2022 11:53:33 01/20/2023 [id number] high blood pressure: care instructions [email or web address] Not available 01/20/2023 10:33:06 learning about high blood pressure [email or web address] Not available 01/20/2023 10:33:06 high cholesterol : care instructions [email or web address] Not available 01/20/2023 10:33:06 Reason for Referral None Reported. Results Created Date Observation Date Name Description Value Unit Range Abnormal Flag Note LastModifiedBy Organization Detail LastModifiedTime 04/12/20 18 04/12/2018 elect rocar diogr am Result EKG (04/12) : NSR, IRBBB, poor R progre ssion, NSST change s Not Available Michelet Roque MD [address], [place], [address], 04/12/2018 14:18:35 03/28/20 19 03/28/2019 elect rocar diogr am Result EKG 03-28-19 AM NSR, IRBBB, poor R progre ssion, NSST change s Not Available Michelet Roque MD [address], [place], [address], 03/28/2019 16:37:11 04/12/20 18 04/12/2018 elect rocar diogr am No observ ation record ed. [email or web address] Not Available 2017 12:40:52 03/29/20 19 03/28/2019 elect rocar diogr am No observ ation record ed. Michelet Roque MD [address], [place], [address], 03/29/2019 11:30:38 03/16/20 22 03/16/2022 elect rocar diogr am No observ ation record ed. [email or web address] Michelet Roque MD [address], [place], [address], 03/16/2022 18:39:09 03/16/20 22 03/16/2022 elect rocar diogr am No observ ation record ed. [email or web address] Michelet Roque MD [address], [place], [address], 03/16/2022 18:39:27 03/17/20 22 03/16/2022 elect rocar diogr am No observ ation record ed. [email or web address] Not Available 2021 16:10:17 03/28/20 22 03/25/2022 , echoc ardio gram No observ ation record ed. [email or web address] [facility] [address], [place], [address], 04/05/2022 13:54:40 03/28/20 22 03/25/2022 , echoc ardio gram No observ ation record ed. [email or web address] Not Available 2021 13:00:24 06/09/20 22 05/10/2022 exerc ise stres s test No observ ation record ed. [email or web address] Not Available 2021 12:14:07 01/21/20 23 01/18/2023 [facility] No observ ation record ed. [email or web address] Not Available 12/2022 10:01:32 Result Notes Documentation Provider Name and Address Organization Details Recorded Time Lipid Panel, Blood : 01/24/23:Na 139,K 4.0,Cl 96,CO2 24.6,Glu 99,BUN 12,Cr 0.51,AST 48.5,ALT 43.5. 01/24/23:TC 201.6,TG 107,LDL 78.3,HDL 105.2. 01/24/23:WBC 5.9,RBC 4.5,Hgb 14.2,HCT 43.6,PLT 193. Mj collins [facility] 01/27/2023 17:42:57 Problems Name Problem SNOMED Code Status Onset Date Resolution Date Notes Provider Name and Address Organization Details Recorded Time Hyperlipi demia 55291272 Active 2016 Popeye collins [facility] 10/04/201 7 12:58:56 Carpal tunnel syndrome 47185319 Active 2016 Popeye Luna [facility] 7 12:59:07 Essential hypertens ion 75706537 Active 2016 Popeye Luna [facility] 7 12:59:16 Supravent ricular bigeminy 238337391 Active 2016 Popeye Luna [facility] 7 13:00:18 Rhinitis 07871775 Active 2016 Popeye Luna [facility] 7 13:00:27 [facility]-smoker 6759742 [facility] 7 13:00:37 Dyspnea on exertion 06178989 Completed 201610/12/2017 [facility] 17:58:02 Former heavy tobacco smoker 309206977361 100 Active 2017 Yuliyadmitriy Marc [facility] 8 14:42:33 Electroca rdiogram abnormal 246223475 Active 2018 [facility] 9 16:41:00 Problem Notes None recorded. Procedures Surgical History Date Name Laterality Status Provider Name and Address Organization Details Recorded Time 3 Tonsillectomy /Adenoidectom y completed [facility] 07/27/2017 16:36:39 Meniscal trnspl knee w/scpe completed [facility] 07/27/2017 16:37:08 Imaging Results None recorded. Procedure Notes None recorded. Medical Equipment None Reported. Allergies No known drug allergies Medications Name Sig Start Date Stop Date Status Note LastModified by Organization Details LastModified Time losartan 50 mg tablet TAKE 1 TABLET BY MOUTH ONCE DAILY active Not Available Not Available No t Available atorvastat in 40 mg tablet TAKE 1 TABLET BY MOUTH ONCE DAILY at HS active Not Available Not Available No t Available gabapentin 600 mg tablet as needed active Not Available Not Available No t Available azithromyc in 250 mg tablet 07/27 completed Not Available Not Available Not Available pravastati n 40 mg tablet TAKE ONE TABLET BY MOUTH ONCE DAILY 03/16 completed Not Available Not Available Not Available ibuprofen 800 mg tablet 03/16 completed Not Available Not Available Not Available benzonatat e 200 mg capsule 01/20 completed Not Available Not Available Not Available hydrocodon e 5 mg-acetami nophen 325 mg tablet prn 03/16 completed Not Available Not Available Not Available prednisone 20 mg tablet 07/27 completed Not Available Not Available Not Available amlodipine 2.5 mg tablet TAKE 1 TABLET BY MOUTH ONCE DAILY 03/16 completed Not Available Not Available Not Available amlodipine 5 mg tablet TAKE 1 TABLET BY MOUTH ONCE DAILY active Not Available Not Available No t Available aspirin 81 mg tablet,del ayed release TAKE 1 TABLET BY MOUTH ONCE DAILY 06/07 completed Not Available Not Available Not Available meloxicam 7.5 mg tablet 07/27 completed Not Available Not Available Not Available magnesium oxide 400 mg (241.3 mg magnesium) tablet Take 1 tablet every other day by oral route. 03/16 completed Not Available Not Available Not Available benzonatat e 100 mg capsule 07/27 completed Not Available Not Available Not Available cephalexin 500 mg capsule 01/20 completed Not Available Not Available Not Available losartan 25 mg tablet TAKE 1 TABLET BY MOUTH ONCE DAILY 03/16 completed Not Available Not Available Not Available hydrochlor othiazide 25 mg tablet TAKE 1 TABLET BY MOUTH ONCE DAILY active Not Available Not Available No t Available ergocalcif hussain (vitamin D2) 1,250 mcg (50,000 unit) capsule TAKE 1 CAPSULE BY MOUTH ONCE A WEEK 03/16 completed Not Available Not Available Not Available ibuprofen 600 mg tablet 01/20 completed Not Available Not Available Not Available fluticason e propionate 50 mcg/actuat ion nasal spray,susp ension 07/27 completed Not Available Not Available Not Available amoxicilli n 875 mg-potassi um clavulanat e 125 mg tablet 07/27 completed Not Available Not Available Not Available Ventolin HFA 90 mcg/actuat ion aerosol inhaler Inhale 2 puffs 6 times a day by inhalatio n route for 16 days. 07/27 completed Not Available Not Available Not Available ezetimibe 10 mg tablet TAKE 1 TABLET BY MOUTH ONCE DAILY 03/16 completed Not Available Not Available Not Available Claritin active 1 tab daily Not Available Not Available Not Available Vitals Date Recorded Body height Body mass index (BMI) Body weight Heart rate Oxygen saturation Oxygen saturation in Arterial blood by Pulse oximetry Systolic And Diastolic Provider Name and Address Organization Details Last Updated DateTime 3 167.64 cm 29.1 kg/m2 34367.6 3 g 75 /min 99 % 99 % 122/76 mm[Hg] Chetna Ordazran [facility] 3 10:13:05 Date Recorded Body height Body mass index (BMI) Body weight Heart rate Oxygen saturation Oxygen saturation in Arterial blood by Pulse oximetry Provider Name and Address Organization Details Last Updated DateTime 2 167.64 cm 29.1 kg/m2 29049.6 3 g 80.99 /min 97.01 % 97.01 % Ghassan Lucas [facility] 2 16:00:50 Date Recorded Systolic And Diastolic Provider Name and Address Organization Details Last Updated DateTime 03/16/2022 118/80 mm[Hg] Misha Cardona [facility] 03/16/2022 17:52:17 Date Recorded Body height Body mass index (BMI) Body weight Heart rate Oxygen saturation Oxygen saturation in Arterial blood by Pulse oximetry Systolic And Diastolic Provider Name and Address Organization Details Last Updated DateTime 9 167.64 cm 30 kg/m2 86618.1 8 g 77 /min 96 % 96 % 142/70 mm[Hg] Jonathan Sanz [facility] 9 16:11:23 Date Recorded Body height Body mass index (BMI) Body weight Heart rate Oxygen saturation Oxygen saturation in Arterial blood by Pulse oximetry Systolic And Diastolic Provider Name and Address Organization Details Last Updated DateTime 8 167.64 cm 29.4 kg/m2 82182.8 1 g 65 /min 99 % 99 % 130/78 mm[Hg] Sabine Betts [facility] 8 14:18:02 Date Recorded Body height Body mass index (BMI) Body weight Heart rate Oxygen saturation Oxygen saturation in Arterial blood by Pulse oximetry Systolic And Diastolic Provider Name and Address Organization Details Last Updated DateTime 2 167.64 cm 28.7 kg/m2 70287.4 4 g 71 /min 98 % 98 % 136/68 mm[Hg] Cintia León [facility] 2 10:38:10 Social History Question Answer Notes LastModified by Loopback Details LastModified Time Tobacco Smoking Status [facility] Not Available [facility] 08/25/2020 03:30:42 What Is Your Level Of Caffeine Consumption? Moderate [id number] Information not available 08/25/2020 How Much Tobacco Do You Chew? None [id number] Information not available 08/25/2020 What Type Of Diet Are You Following? REGULAR [id number] Information not available 08/25/2020 Which Illicit Or Recreational Drugs Have You Used? No [id number] Information not available 08/25/2020 What Was The Date Of Your Most Recent Tobacco Screening? 10/12/2017 [id number] Information not available 08/25/2020 How Much Tobacco Do You Smoke? No [id number] Information not available 08/25/2020 General Stress Level Low Information not available 07/27/2017 How Many Years Have You Smoked Tobacco? 40 Quit 11/11/12 [id number] Information not available 08/25/2020 Sex: Unknown Functional Status Question Answer Note LastModified by Loopback Details LastModified Time What is your level of alcohol consumption? Moderate every other day [id number] Information not available 08/25/2020 What is your exercise level? None [id number] Information not available 08/25/2020 Mental Status None recorded. Family History Relationship Description Onset Age of this Age Resolved Age Notes LastModified by Organization Details LastModified Time Unspecified Relation Diabetes mellitus [email or web address] Not available 2016 16:35:18 Unspecified Relation Hypertensive disorder Not available 2016 16:35:24 Unspecified Relation Cerebrovascu lar accident [email or web address] Not available 02/2017 16:35:31 Notes:No premature at [place]. Medical History Condition Response Hyperlipidemia Y Arrhythmia Y Hypertension Y Gynecological HistoryNo gynecological history recorded. Obstetrics History GPAL:G 0 P 0 0 0 0 Past Encounters Encounter ID Performer Location Encounter Start Date Encounter Closed Date Diagnosis/Indication Diagnosis SNOMED-CT Code Diagnosis ICD10 Code Diagnosis Note [id number] Michelet Roque MD [place] OFF[facility] [address] [place] [address] 07/27/2017 16:13:12 07/28/2017 09:59:05 Supraventricular bigeminy 041947971 I45.89 Holter, ECHO, labs including Mg and TSH Hyperlipidemia 28476037 E78.5 Will check lipids, cont diet Essential hypertension 99530484 I10 Patient's blood pressure is well-contr olled on present medical therapy. Patient is tolerating , without difficulty , the current medication s. I have not made changes to the current regimen. Patient is advised to maintain a blood pressure diary. Cont low Na diet. Dyspnea on exertion 6084 5006 R06.09 Patient presents with LUTHER which could be equivalent of angina especially in women. Given the history, exam findings and intermedia te cardiac risk factors, I feel additional investigat ion is warranted. I have made arrangemen ts in the near future for an exercise stress nuclear test and an echocardio gram to evaluate for any ischemia or structural heart disease. The procedure was discussed with the patient, and risks, benefits, and alternativ e options were explained. Appropriat e labwork has not been performed recently, therefore I have made arrangemen ts for further testing. I have asked the patient to curtail exercise and activities until our investigat ion is complete. I have made the following adjustment s to the present medical regimen. Patient has been started on daily aspirin. [id number] Qasim Mccain MD [facility] [address] [place] [address] 09/07/2017 16:25:00 09/11/2017 11:22:23 Essential hypertension 56864530 I10 Patient's blood pressure is well-contr olled on present medical therapy. Patient is tolerating , without difficulty , the current medication s. I have not made changes to the current regimen. Patient is advised to maintain a blood pressure diary. Cont low Na diet. Supraventr icular bigeminy 623019369 I45.89 Holter, ECHO, labs including Mg and TSH Hyperlipidemia 85058040 E78.5 Will check lipids, cont diet Dyspnea on exertion 6084 5006 R06.09 Patient presents with LUTHER which could be equivalent of angina especially in women. Given the history, exam findings and intermedia te cardiac risk factors, I feel additional investigat ion is warranted. I have made arrangemen ts in the near future for an exercise stress nuclear test and an echocardio gram to evaluate for any ischemia or structural heart disease. The procedure was discussed with the patient, and risks, benefits, and alternativ e options were explained. Appropriat e labwork has not been performed recently, therefore I have made arrangemen ts for further testing. I have asked the patient to curtail exercise and activities until our investigat ion is complete. I have made the following adjustment s to the present medical regimen. Patient has been started on daily aspirin. [id number] Michelet Roque MD [place] [facility] [place] [address] 10/12/2017 16:56:17 10/13/2017 09:17:27 Essential hypertension 87618350 I10 Patient's blood pressure is well-contr olled on present medical therapy. Patient is tolerating , without difficulty , the current medication s. I have not made changes to the current regimen. Patient is advised to maintain a blood pressure diary. Cont low Na diet.ECHO showed normal LV systolic function and diastolic dysfunctio n. Hyperlipidemia 34235676 E78.5 Patient's hyperlipid emia is well-contr olled on present medical therapy. Patient is tolerating , without difficulty , the current medication s. I have not made changes to the current regimen. Cont low cholestero l diet. check lipids Dyspnea on exertion 6084 5006 R06.09 ECHO showed normal LV systolic function and diastolic dysfunctio nCont [place] [id number] Qasim Mccain MD [place] [facility] [place] [address] 04/12/2018 13:54:51 04/12/2018 18:44:50 Essential hypertension 78107557 I10 Patient's blood pressure is well-contr olled on present medical therapy. Patient is tolerating , without difficulty , the current medication s. I have not made changes to the current regimen. Patient is advised to maintain a blood pressure diary. Cont low Na diet. ECHO showed normal LV systolic function and diastolic dysfunctio n. Hyperlipidemia 60738019 E78.5 Patient's hyperlipid emia is well-contr olled on present medical therapy. Patient is tolerating , without difficulty , the current medication s. I have not made changes to the current regimen. Cont low cholestero l diet. 04/04/18: LDL 94 Dyspnea on exertion 6084 5006 R06.09 Stable. ECHO showed normal LV systolic function and diastolic dysfunctio n Cont Cozaar and risk factor modificati on Former hea vy tobacco smoker [id number] 61161 Z87.891 Quit 2012 [id number] Qasim Mccain MD [facility] [address] [place] [address] 03/28/2019 15:55:15 03/28/2019 16:43:05 Essential hypertension 07594351 I10 Patient's blood pressure is well-contr olled on present medical therapy. Patient is tolerating , without difficulty , the current medication s. I have not made changes to the current regimen. Patient is advised to maintain a blood pressure diary. Cont low Na diet. ECHO showed normal LV systolic function and diastolic dysfunctio n. Hyperlipidemia 55265935 E78.5 Patient's hyperlipid emia is well-contr olled on present medical therapy. Patient is tolerating , without difficulty , the current medication s. I have not made changes to the current regimen. Cont low cholestero l diet. 04/04/18: LDL 94 Dyspnea on exertion 6084 5006 R06.09 Patient presents with LUTHER which could be angina equivalent especially in women.Give n the history, exam findings and intermedia te cardiac risk factors, I feel additional investigat ion is warranted. I have made arrangemen ts in the near future for an exercise stress nuclear test. The procedure was discussed with the patient, and risks, benefits, and alternativ e options were explained. Appropriat e labwork has not been performed recently, therefore I have made arrangemen ts for further testing. I have asked the patient to curtail exercise and activities until our investigat ion is complete. I have made the following adjustment s to the present medical regimen. Former hea vy tobacco smoker 4561387518 97517 Z87.891 Quit 2012, used to smoke for 40 yrs Electrocar diogram abnormal 795783110 R94.31 [id number] Misha Cardona MD [place] [facility] [address] [place] [address] 03/16/2022 15:50:26 03/16/2022 18:10:01 Essential hypertension 03637580 I10 Patient's blood pressure is well-contr olled on present medical therapy. Patient is tolerating , without difficulty , the current medication s. I have not made changes to the current regimen. Patient is advised to maintain a blood pressure diary. Cont low Na diet. BP diary. Hyperlipidemia 17550025 E78.5 Patient's hyperlipid emia is well-contr olled on present medical therapy. Patient is tolerating , without difficulty , the current medication s. I have not made changes to the current regimen. Cont low cholestero l diet. 04/04/18: LDL 94 She was intolerant of ezetimibe previously . Obtain FLP. Dyspnea on exertion 6084 5006 R06.09 Patient presents with exertional dyspnea which can be an anginal equivalent , especially in women, with abnormal ECG. Had EKG 03/16/22: NSR, possible anterior myocardial infarction age-indete rminate. Given the history, exam findings and intermedia te cardiac risk factors, I feel additional investigat ion is warranted. I have made arrangemen ts in the near future for an exercise stress nuclear test. The procedure was discussed with the patient, and risks, benefits, and alternativ e options were explained. Appropriat e labwork has not been performed recently, therefore I have made arrangemen ts for further testing. I have asked the patient to curtail exercise and activities until our investigat ion is complete. I have made the following adjustment s to the present medical regimen. Obtain labs per PCP 11/2021. Obtain CMP, Mg, CBC, TSH, FLP. Former hea vy tobacco smoker [id number] 24439 Z87.891 Quit 2012, used to smoke for 40 yrs. Electrocar diogram abnormal 794034839 R94.31 Had EKG 03/16/22: NSR, possible anterior myocardial infarction age-indete rminate. She had abnormal ECG with PCP 11/2021 with incomplete right bundle branch block. Previously , had EKG (07/27/17) : NSR, incomplete RBBB, poor R progressio n, NSST changes. Obtain echo to evaluate for structural /functiona l disease. [id number] MD Dave Biggs Office [address] [facility] [address] [place] [place] [phone] 06/07/2022 10:29:50 06/07/2022 12:51:19 Essential hypertension [id number] I10 Patient's blood pressure is well-contr olled on present medical therapy. Patient is tolerating , without difficulty , the current medication s. I have not made changes to the current regimen. Patient is advised to maintain a blood pressure diary. Cont low Na diet. BP diary. Hyperlipidemia [id number] E78.5 Patient's hyperlipid emia is well-contr olled on present medical therapy. Patient is tolerating , without difficulty , the current medication s. I have not made changes to the current regimen. Cont low cholestero l diet and statin. 04/04/18: LDL 94 Needs to keep LDL less than 70-100, and HDL more than 40. She was intolerant of ezetimibe previously . Obtained lipid panel, blood 04-11-2022 04/11/2022 LIPID-CHOL 190 HDL 102 TRIG 61 LDL 74 CMP-GL 95 BUN 12 CR 0.47(L) NA 140 K 3.9 CA 9.8 TSH 2.19 Mg 1.8 CBC-WBC5.2 RBC 4.21 HGB 13.3 HCT 41.1 PLT 11.5 Dyspnea on exertion 6084 5006 R06.09 Stable. Patient presents with exertional dyspnea which can be an anginal equivalent , especially in women, with abnormal ECG. Had exercise nuclear stress test 05-10-2022 : Negative stress test for ischemia. Normal LV systolic function. Artifact noted. No previous study to compare . Exercise tolerance: Below Average. Had ( 2)-ECHO: LV chamber size is normal. Mild LVH. The estimated left ventricle ejection fraction is 60-65% (normal). LV relaxation is impaired. The aortic valve is mildly calcified. There is trivial aortic regurgitat ion. The mitral valve leaflet is mildly thickened. Had EKG 03/16/22: NSR, possible anterior myocardial infarction age-indete rminate. Obtain BMP, Mg. Former hea vy tobacco smoker [id number] Z87.891 Quit 2012, used to smoke for 40 yrs. Electrocar diogram abnormal [id number] R94.31 Had EKG 03/16/22: NSR, possible anterior myocardial infarction age-indete rminate. She had abnormal ECG with PCP 11/2021 with incomplete right bundle branch block. Previously , had EKG (07/27/17) : NSR, incomplete RBBB, poor R progressio n, NSST changes. [id number] MD Dave Biggs Office [address] [facility] [address] [place] [phone] 01/20/2023 09:48:54 01/20/2023 10:37:14 Essential hypertension [id number] I10 Patient's blood pressure is well-contr olled on present medical therapy. Patient is tolerating , without difficulty , the current medication s. I have not made changes to the current regimen. Patient is advised to maintain a blood pressure diary. Cont low Na diet. BP diary. Hyperlipidemia [id number] E78.5 Patient's hyperlipid emia is well-contr olled on present medical therapy. Patient is tolerating , without difficulty , the current medication s. I have not made changes to the current regimen. Cont low cholestero l diet and statin. 04/04/18: LDL 94 Needs to keep LDL less than 70-100, and HDL more than 40. She was intolerant of ezetimibe previously . Obtained lipid panel, blood 04-11-2022 04/11/2022 LIPID-CHOL 190 HDL 102 TRIG 61 LDL 74 CMP-GL 95 BUN 12 CR 0.47(L) NA 140 K 3.9 CA 9.8 TSH 2.19 Mg 1.8 CBC-WBC5.2 RBC 4.21 HGB 13.3 HCT 41.1 PLT 11.5 Obtain labs per PCP 01/24/23. Obtain FLP, CMP, Mg, TSH, CBC. Dyspnea on exertion 6084 5006 R06.09 Stable. Patient presents with exertional dyspnea which can be an anginal equivalent , especially in women, with abnormal ECG. Had exercise nuclear stress test 05-10-2022 : Negative stress test for ischemia. Normal LV systolic function. Artifact noted. No previous study to compare . Exercise tolerance: Below Average. Had ( 2)-ECHO: LV chamber size is normal. Mild LVH. The estimated left ventricle ejection fraction is 60-65% (normal). LV relaxation is impaired. The aortic valve is mildly calcified. There is trivial aortic regurgitat ion. The mitral valve leaflet is mildly thickened. Had EKG 03/16/22: NSR, possible anterior myocardial infarction age-indete rminate. Former hesaroj hoffy tobacco smoker [id number] Z87.891 Quit 2012, used to smoke for 40 yrs. Electrocar diogram abnormal [id number] R94.31 Had EKG 03/16/22: NSR, possible anterior myocardial infarction age-indete rminate. She had abnormal ECG with PCP 11/2021 with incomplete right bundle branch block. Previously , had EKG (07/27/17) : NSR, incomplete RBBB, poor R progressio n, NSST changes. Health Concerns Section Related Observation LastModified by Organization Detai ls LastModified Time None Recorded Concern Status LastModified by Organization Details LastModified Time None Recorded Advance Directives Directive None Recorded Payers Insurance Date Sequence Insurance Name Policy Number Policy Harmon Covered Member ID Harmon Member ID Guarantor Name 12/13/2021 1 [facility] ([facility]) [id number] Kiki Adelso Sunshine [id number] Kiki Sunshine 01/20/2023 1 [facility] [id number] Kiki Jong [id number] Kiki Sunshine Notes Date Note Type Note Provider Name and Address Organization Details Recorded Time 04/12/2018 text/html 04/12/18 CC: Abnormal EKG follow up 57 year-old WF with history of HTN, HLD and former cigarette smoking (quit 2012) presents for scheduled fu. Pt was last in our office about 6 months ago. Since then she feels fine. She had EKG at [facility] office recently which showed some extra beats. Pt is not aware of any arrhythmia. Pt states that her BP used to go 170-180/80-90, but is now better since she was started on medications. No known history of coronary artery disease. No history of previous myocardial infarction. No history of heart failure. No known valvular heart disease. No known arrhythmia. Patient reports feeling well overall. Patient is active, but is not exercising regularly. No chest pain. No arm pain. No neck pain. No nausea and vomiting. No diaphoresis. No shortness of breath at rest. Stable dyspnea on exertion reported. No fatigue. No orthopnea. No PND. Occasional leg swelling, worse during summer. No palpitation. No dizziness. No syncope . No pre-syncope. No claudication. No major bleeding events. No side effects from medications. Complete ROS negative except as stated in the HPI and ROS. Had ECHO done in 09/21/17 showed normal global systolic function, EF > 75% , grade I diastolic dysfunction , mild tricuspid regurgitation . Results from this visit, or from the past: 04/04/18: NA: 143, K: 4.4, CL: 107, CO2: 26, GLU: 100, BUN: 14, CR: 0.57 04/04/18: M.2 04/04/18:TR: 77, TC: 182, HDL: 71, LDL: 94 09-04-17 GLU-86 BUN-15 CR-0.65 N-145 K-4.1 CL-107 CO2-28SOD 145, K 4.1, CL 107, CO2 28, GL 86, BUN 15, CR 0.65 TC 241, HDL 80, TR 177, LDL 130TSH:1.30MA.1 03/01/17: NA 142 , K 4.2, CL 106 ,CO2 25 ,GLU 103 ,BUN 14 ,CR 0.59 ,TC 263,TG 73 ,HDL 109 ,LDL 139, AST 36 ,ALT 46 ,HB 13.7, HT 42.1 EKG (04/12/18) : NSR, IRBBB, poor R progression, NSST changesEKG (07/27/17): NSR, IRBBB, poor R progression, NSST changes 07/05/17 EKG: Sinus rhythm. Supra ventricular bigeminy. Possible left atrial enlargement. Abnormal ECG. ECHO 09/21/17:LV chamber size is normal,there is normal global systolic function and contractility,EF >75%,Normal left atrial pressure with grade I diastolic dysfunction,there is physiologic aortic valve regurgitation, there is mild tricuspid regurgitation,mild elevation of estimated RV systolic pressure . 02/24/17 CHEST TWO VIEW: No active cardiopulmonary disease. Qasim collins [place] - [facility] 04/12/2018 14:55:15 03/28/2019 text/html 04/12/18 CC: Abnormal EKG follow up 57 year-old WF with history of HTN, HLD and former cigarette smoking (quit 2012) presents for scheduled fu. Pt was last in our office about 6 months ago. Since then she feels fine. She had EKG at office recently which showed some extra beats. Pt is not aware of any arrhythmia. Pt states that her BP used to go 170-180/80-90, but is now better since she was started on medications. No known history of coronary artery disease. No history of previous myocardial infarction. No history of heart failure. No known valvular heart disease. No known arrhythmia. Patient reports feeling well overall. Patient is active, but is not exercising regularly. No chest pain. No arm pain. No neck pain. No nausea and vomiting. No diaphoresis. No shortness of breath at rest. Stable dyspnea on exertion reported. No fatigue. No orthopnea. No PND. Occasional leg swelling, worse during summer. No palpitation. No dizziness. No syncope . No pre-syncope. No claudication. No major bleeding events. No side effects from medications. Complete ROS negative except as stated in the HPI and ROS. Had ECHO done in 09/21/17 showed normal global systolic function, EF > 75% , grade I diastolic dysfunction , mild tricuspid regurgitation . Results from this visit, or from the past: 04/04/18: NA: 143, K: 4.4, CL: 107, CO2: 26, GLU: 100, BUN: 14, CR: 0.57 04/04/18: M.2 04/04/18:TR: 77, TC: 182, HDL: 71, LDL: 94 09-04-17 GLU-86 BUN-15 CR-0.65 N-145 K-4.1 CL-107 CO2-28SOD 145, K 4.1, CL 107, CO2 28, GL 86, BUN 15, CR 0.65 TC 241, HDL 80, TR 177, LDL 130TSH:1.30MA.1 03/01/17: NA 142 , K 4.2, CL 106 ,CO2 25 ,GLU 103 ,BUN 14 ,CR 0.59 ,TC 263,TG 73 ,HDL 109 ,LDL 139, AST 36 ,ALT 46 ,HB 13.7, HT 42.1 EKG 6-6-19 AM NSR, IRBBB, poor R progression, NSST changesEKG (04/12/18) : NSR, IRBBB, poor R progression, NSST changesEKG (07/27/17): NSR, IRBBB, poor R progression, NSST changes 07/05/17 EKG: Sinus rhythm. Supra ventricular bigeminy. Possible left atrial enlargement. Abnormal ECG. ECHO 09/21/17:LV chamber size is normal,there is normal global systolic function and contractility,EF >75%,Normal left atrial pressure with grade I diastolic dysfunction,there is physiologic aortic valve regurgitation, there is mild tricuspid regurgitation,mild elevation of estimated RV systolic pressure . 02/24/17 CHEST TWO VIEW: No active cardiopulmonary disease. Qasim Mccain [place], [place] - [facility] 03/28/2019 16:43:03 03/16/2022 text/html 03/16/22 CC: Abnormal EKG follow up 61 year-old white woman with history of IRBBB, HTN, HLD, former cigarette smoking (quit 2012), who is seen in cardiac follow-up for abnormal ECG. She had abnormal ECG with PCP 11/2021 with incomplete right bundle branch block. Had EKG 03/16/22: NSR, possible anterior myocardial infarction age-indeterminate. Patient reports increased exertional dyspnea in recent years. She missed her intended stress test 3 years ago. She had 30 lbs. weight gain since quitting smoking 2012. Pt was last in our office about 36 months ago. Previously, she had EKG at PCP office which showed some extra beats. Pt is not aware of any arrhythmia. Pt states that her BP used to go 170-180/80-90, but is now better since she was started on medications. No known history of coronary artery disease. No history of previous myocardial infarction. No history of heart failure. No known valvular heart disease. No known arrhythmia. Patient reports feeling well overall. Patient is active, but is not exercising regularly. No chest pain. No arm pain. No neck pain. No nausea and vomiting. No diaphoresis. No shortness of breath at rest. Dyspnea on exertion reported, increased. Reports fatigue. No orthopnea. No PND. Occasional leg swelling, worse during kolb. No palpitation. No dizziness. No syncope . No pre-syncope. No claudication. No major bleeding events. No side effects from medications. Complete ROS negative except as stated in the HPI and ROS. No daytime somnolence or interrupted breathing with sleep. Had ECHO done in 09/21/17 showed normal global systolic function, EF > 75% , grade I diastolic dysfunction , mild tricuspid regurgitation . Results from this visit, or from the past: 04/04/18: NA: 143, K: 4.4, CL: 107, CO2: 26, GLU: 100, BUN: 14, CR: 0.57 04/04/18: M.2 04/04/18:TR: 77, TC: 182, HDL: 71, LDL: 94 09-04-17 GLU-86 BUN-15 CR-0.65 N-145 K-4.1 CL-107 CO2-28SOD 145, K 4.1, CL 107, CO2 28, GL 86, BUN 15, CR 0.65 TC 241, HDL 80, TR 177, LDL 130TSH:1.30MA.1 03/01/17: NA 142 , K 4.2, CL 106 ,CO2 25 ,GLU 103 ,BUN 14 ,CR 0.59 ,TC 263,TG 73 ,HDL 109 ,LDL 139, AST 36 ,ALT 46 ,HB 13.7, HT 42.1 Had EKG 03/16/22: NSR, possible anterior myocardial infarction age-indeterminate. EKG 6-6-19 AM NSR, IRBBB, poor R progression, NSST changesEKG (04/12/18) : NSR, IRBBB, poor R progression, NSST changesEKG (07/27/17): NSR, IRBBB, poor R progression, NSST changes 07/05/17 EKG: Sinus rhythm. Supra ventricular bigeminy. Possible left atrial enlargement. Abnormal ECG. ECHO 09/21/17:LV chamber size is normal,there is normal global systolic function and contractility,EF >75%,Normal left atrial pressure with grade I diastolic dysfunction,there is physiologic aortic valve regurgitation, there is mild tricuspid regurgitation,mild elevation of estimated RV systolic pressure . 02/24/17 CHEST TWO VIEW: No active cardiopulmonary disease. ALLISON Marroquin - [facility] 03/16/2022 18:01:18 06/07/2022 text/html 06/07/2022 CC: Abnormal EKG follow up 61 year-old white woman with history of IRBBB, HTN, HLD, former cigarette smoking (quit 2012), history of mildly elevated hepatic transaminases, who is seen in cardiac follow-up for abnormal ECG. She had abnormal ECG with PCP 11/2021 with incomplete right bundle branch block. Had EKG 03/16/22: NSR, possible anterior myocardial infarction age-indeterminate. Patient reports increased exertional dyspnea in recent years. She missed her intended stress test 3 years ago. She had 30 lbs. weight gain since quitting smoking 2012. Pt was last in our office about 3 months ago. Previously, she had EKG at PCP office which showed some extra beats. Pt is not aware of any arrhythmia. Pt states that her BP used to go 170-180/80-90, but is now better since she was started on medications. No known history of coronary artery disease. No history of previous myocardial infarction. No history of heart failure. No known valvular heart disease. No known arrhythmia. Patient reports feeling well overall. Patient is active, but is not exercising regularly. No chest pain. No arm pain. No neck pain. No nausea and vomiting. No diaphoresis. No shortness of breath at rest. Dyspnea on exertion reported, stable. Reports fatigue. No orthopnea. No PND. Occasional leg swelling, worse during kolb, stable. No palpitation. No dizziness. No syncope . No pre-syncope. No claudication. No major bleeding events. No side effects from medications. Complete ROS negative except as stated in the HPI and ROS. No daytime somnolence or interrupted breathing with sleep. Had exercise nuclear stress test 05-10-2022: Negative stress test for ischemia. Normal LV systolic function. Artifact noted. No previous study to compare . Exercise tolerance: Below Average. Had (03/25/2022)-ECHO: LV chamber size is normal. Mild LVH. The estimated left ventricle ejection fraction is 60-65% (normal). LV relaxation is impaired. The aortic valve is mildly calcified. There is trivial aortic regurgitation. The mitral valve leaflet is mildly thickened. Had ECHO done in 09/21/17 showed normal global systolic function, EF > 75% , grade I diastolic dysfunction , mild tricuspid regurgitation . Results from this visit, or from the past: lipid panel, blood LIPID-CHOL 190 HDL 102 TRIG 61 LDL 74 CMP-GL 95 BUN 12 CR 0.47(L) NA 140 K 3.9 CA 9.8 TSH 2.19 Mg 1.8 CBC-WBC5.2 RBC 4.21 HGB 13.3 HCT 41.1 PLT 11.5Attachment available6 Historical CBC w/ diff [id number]/31/19: HB 14.3, HT 43.1 04/04/18: NA: 143, K: 4.4, CL: 107, CO2: 26, GLU: 100, BUN: 14, CR: 0.57 04/04/18: M.2 04/04/18:TR: 77, TC: 182, HDL: 71, LDL: 94 09-04-17 GLU-86 BUN-15 CR-0.65 N-145 K-4.1 CL-107 CO2-28SOD 145, K 4.1, CL 107, CO2 28, GL 86, BUN 15, CR 0.65 TC 241, HDL 80, TR 177, LDL 130TSH:1.30MA.1 03/01/17: NA 142 , K 4.2, CL 106 ,CO2 25 ,GLU 103 ,BUN 14 ,CR 0.59 ,TC 263,TG 73 ,HDL 109 ,LDL 139, AST 36 ,ALT 46 ,HB 13.7, HT 42.1 Had EKG 03/16/22: NSR, possible anterior myocardial infarction age-indeterminate. EKG 6--19 AM NSR, IRBBB, poor R progression, NSST changesEKG (04/12/18) : NSR, IRBBB, poor R progression, NSST changesEKG (07/27/17): NSR, IRBBB, poor R progression, NSST changes 07/05/17 EKG: Sinus rhythm. Supra ventricular bigeminy. Possible left atrial enlargement. Abnormal ECG. (03/25/2022)-ECHO.'LV chamber size is normal. The estimated left ventricle ejection fraction is 60-65% (normal). LV relaxation is impaired. The aortic valve is mildly calcified. There is trivial aortic regurgitation. The mitral valve leaflet is mildly thickened. ECHO 09/21/17:LV chamber size is normal,there is normal global systolic function and contractility,EF >75%,Normal left atrial pressure with grade I diastolic dysfunction,there is physiologic aortic valve regurgitation, there is mild tricuspid regurgitation,mild elevation of estimated RV systolic pressure . exercise stress test 05-10-2022(05/10/22)- Exercise Stress Test Negative stress test for ischemia. Normal LV systolic function. Artifact noted. No previous study to compare . Exercise tolerance: Below Average. 02/24/17 CHEST TWO VIEW: No active cardiopulmonary disease. Misha collins [place] - [facility] 06/07/2022 11:53:37 01/20/2023 text/html 01/10/2023 CC: Abnormal EKG follow up 62 year-old white woman with history of IRBBB, HTN, HLD, former cigarette smoking (quit 2012), history of mildly elevated hepatic transaminases, who is seen in cardiac follow-up for abnormal ECG. She had abnormal ECG with PCP 11/2021 with incomplete right bundle branch block. Had EKG 03/16/22: NSR, possible anterior myocardial infarction age-indeterminate. Patient reports increased exertional dyspnea in recent years. She had 30 lbs. weight gain since quitting smoking 2012. Pt was last in our office about 6 months ago. Previously, she had EKG at PCP office which showed some extra beats. Pt is not aware of any arrhythmia. Pt states that her BP used to go 170-180/80-90, but is now better since she was started on medications. No known history of coronary artery disease. No history of previous myocardial infarction. No history of heart failure. No known valvular heart disease. No known arrhythmia. Patient reports feeling well overall. Patient is active, but is not exercising regularly. No chest pain. No arm pain. No neck pain. No nausea and vomiting. No diaphoresis. No shortness of breath at rest. Dyspnea on exertion reported, stable. Reports fatigue. No orthopnea. No PND. Occasional leg swelling, worse during kolb, stable. No palpitation. No dizziness. No syncope . No pre-syncope. No claudication. No major bleeding events. No side effects from medications. Complete ROS negative except as stated in the HPI and ROS. No daytime somnolence or interrupted breathing with sleep. Had exercise nuclear stress test 05-10-2022: Negative stress test for ischemia. Normal LV systolic function. Artifact noted. No previous study to compare . Exercise tolerance: Below Average. Had (03/25/2022)-ECHO: LV chamber size is normal. Mild LVH. The estimated left ventricle ejection fraction is 60-65% (normal). LV relaxation is impaired. The aortic valve is mildly calcified. There is trivial aortic regurgitation. The mitral valve leaflet is mildly thickened. Had ECHO done in 09/21/17 showed normal global systolic function, EF > 75% , grade I diastolic dysfunction , mild tricuspid regurgitation . Results from this visit, or from the past: Had 01/19/23: Cr 0.53, K 3.6, Mg 1.7 lipid panel, blood [id number] LIPID-CHOL 190 HDL 102 TRIG 61 LDL 74 CMP-GL 95 BUN 12 CR 0.47(L) NA 140 K 3.9 CA 9.8 TSH 2.19 Mg 1.8 CBC-WBC5.2 RBC 4.21 HGB 13.3 HCT 41.1 PLT 11.5Attachment available6 Historical CBC w/ diff [id number]/31/19: HB 14.3, HT 43.1 04/04/18: NA: 143, K: 4.4, CL: 107, CO2: 26, GLU: 100, BUN: 14, CR: 0.57 04/04/18: M.2 04/04/18:TR: 77, TC: 182, HDL: 71, LDL: 94 09-04-17 GLU-86 BUN-15 CR-0.65 N-145 K-4.1 CL-107 CO2-28SOD 145, K 4.1, CL 107, CO2 28, GL 86, BUN 15, CR 0.65 TC 241, HDL 80, TR 177, LDL 130TSH:1.30MA.1 03/01/17: NA 142 , K 4.2, CL 106 ,CO2 25 ,GLU 103 ,BUN 14 ,CR 0.59 ,TC 263,TG 73 ,HDL 109 ,LDL 139, AST 36 ,ALT 46 ,HB 13.7, HT 42.1 Had EKG 03/16/22: NSR, possible anterior myocardial infarction age-indeterminate. EKG 6-6-19 AM NSR, IRBBB, poor R progression, NSST changesEKG (04/12/18) : NSR, IRBBB, poor R progression, NSST changesEKG (07/27/17): NSR, IRBBB, poor R progression, NSST changes 07/05/17 EKG: Sinus rhythm. Supra ventricular bigeminy. Possible left atrial enlargement. Abnormal ECG. (03/25/2022)-ECHO.'LV chamber size is normal. The estimated left ventricle ejection fraction is 60-65% (normal). LV relaxation is impaired. The aortic valve is mildly calcified. There is trivial aortic regurgitation. The mitral valve leaflet is mildly thickened. ECHO 09/21/17:LV chamber size is normal,there is normal global systolic function and contractility,EF >75%,Normal left atrial pressure with grade I diastolic dysfunction,there is physiologic aortic valve regurgitation, there is mild tricuspid regurgitation,mild elevation of estimated RV systolic pressure . exercise stress test 05-10-2022(05/10/22)- Exercise Stress Test Negative stress test for ischemia. Normal LV systolic function. Artifact noted. No previous study to compare . Exercise tolerance: Below Average. 02/24/17 CHEST TWO VIEW: No active cardiopulmonary disease. Misha collins [place] - [facility] 01/20/2023 10:33:37 OBGyn Episode No OBEpisode recorded.
--- OUTSIDE RECORDS SUMMARY | 2025-05-03 15:23 | XMS_ITS | Data Portability ---
Author Organization [place] [facility] [employer], Main Office Address [address] [place] [address] Assessment Encounter Date Assessment Date Assessment LastModified by Organization Details LastModified Time 08/02/2023 08/02/2023 62-year-old patient presents today with left knee pain after a fall on 07/19/2023. She tripped in her driveway and hit her knee and gipson on the pavement. Since then it has felt weak and painful. She has had issues with the knee in the past including a meniscal surgery about 10 years ago. For treatment she has tried ice, ibuprofen, and wrapping it, which has not really helped. Review of systems per patient questionnaire imaging: X-rays were reviewed demonstrating moderate degenerative changes with medial joint space narrowing and some small osteophytes. no acute bony abnormality or fracture. Physical exam: Antalgic gait. 1+ effusion. Tenderness with palpation over the medial side. Range of motion 5-120 with crepitus, limited by pain. Positive Fabrice's. Stable Dmitriy's with firm endpoint. Stable posterior drawer, varus and valgus stress. Normal patellar mobility. We will start her with a course of physical therapy to help stretch and strengthen her knee. We will also order meloxicam for anti-inflammator y therapy. We will see her back in 4-6 weeks to check her progress. She is in agreement this plan. [email or web address] Not available 08/04/2023 10:20:34 09/06/2023 09/06/2023 63-year-old female presents for follow-up of her left knee. She reports feeling better, currently rates her pain as 1/10. We had ordered PT but she was unable to schedule it yet. We also prescribed her meloxicam last time which has helped a lot. Overall she feels like she is doing well in her current state and does not want any further intervention. New line physical exam: Nonantalgic gait. No focal tenderness to palpation. No effusion. Range of motion 0-140. Negative Fabrice's. Stable ligaments. Overall she is doing well. She should continue taking her meloxicam, and she may cancel her PT appointment if she feels like she has already recovered. We will see her back on an as needed basis. [email or web address] Not available 09/08/2023 11:33:46 Plan of Treatment Reminders Order Date Submit Date Provider Last Modified By Organization Details Last Modified Time Details Appointments None recorded. Lab None recorded. Referral physical therapist referral - L-KNEE 5WK REK 2022 023 [email or web address] [facility] [place] [facility], [address], [place], [address], 19:56:18 Procedures None recorded. Surgeries None recorded. Imaging XR, knee, 3 view 2022 023 [email or web address] [facility] [place], [address], [place], [address], 09:19:52 Medication Orders Mobic 15 mg tablet 2022 023 [email or web address] [facility] [place], [address], 19:56:18 Patient TargetsNo targets recorded. Patient InstructionsNo instructions recorded. Reason for Referral Physical Therapist Referral for Pain of left knee joint [id number]-[id number] REK Referring Physician: Mraía Smith, Orthopedic Surgery, Encounter Date: 08/02/2023 Results Created Date Observation Date Name Description Value Unit Range Abnormal Flag Note LastModifiedBy Organization Detail LastModifiedTime 08/02/20 23 XR, knee, 3 view No observ ation record ed. [email or web address] [facility] [place] [address], [place], [address], 08/04/2023 10:13:09 Result Notes None recorded. Problems Name Problem SNOMED Code Status Onset Date Resolution Date Notes Provider Name and Address Organization Details Recorded Time Pain in limb 29523875 Active Not Available [facility] 3 12:47:04 Pain of left knee joint 593221238632243 Active 2022 Chani Krueger ATC L [facility] [place], [facility] [employer] [facility] 3 15:03:53 Problem Notes None recorded. Procedures Surgical History Date Name Laterality Status Provider Name and Address Organization Details Recorded Time Knee Surgery completed Chani Krueger ATC L [place] [facility] [employer] [facility] 08/02/2023 15:03:20 Imaging Results None recorded. Procedure Notes None recorded. Medical Equipment None Reported. Allergies No known drug allergies Medications Name Sig Start Date Stop Date Status Note LastModified by Organization Details LastModified Time losartan 50 mg tablet TAKE 1 TABLET BY MOUTH ONCE DAILY active Not Available Not Available No t Available atorvastatin 40 mg tablet TAKE 1 TABLET BY MOUTH ONCE DAILY active Not Available Not Available No t Available gabapentin 600 mg tablet TAKE 1 TABLET BY MOUTH THREE TIMES DAILY active Not Available Not Available No t Available cetirizine 10 mg tablet TAKE 1 TABLET BY MOUTH ONCE DAILY active Not Available Not Available No t Available azithromycin 250 mg tablet 08/01 completed Not Available Not Available Not Available benzonatate 200 mg capsule 08/30 completed Not Available Not Available Not Available hydrocodone 5 mg-acetamino phen 325 mg tablet 08/01 completed Not Available Not Available Not Available minocycline 100 mg capsule 08/01 completed Not Available Not Available Not Available meloxicam 15 mg tablet TAKE 1 TABLET BY MOUTH ONCE DAILY active Not Available Not Available No t Available prednisone 20 mg tablet 08/01 completed Not Available Not Available Not Available amlodipine 5 mg tablet TAKE 1 TABLET BY MOUTH ONCE DAILY active Not Available Not Available No t Available meloxicam 7.5 mg tablet 08/01 completed Not Available Not Available Not Available benzonatate 100 mg capsule 08/01 completed Not Available Not Available Not Available cephalexin 500 mg capsule 08/30 completed Not Available Not Available Not Available hydrochlorot hiazide 25 mg tablet TAKE 1 TABLET BY MOUTH ONCE DAILY active Not Available Not Available No t Available ibuprofen 600 mg tablet 08/30 completed Not Available Not Available Not Available fluticasone propionate 50 mcg/actuatio n nasal spray,suspen john USE 1 SPRAY(S) IN EACH NOSTRIL ONCE DAILY 08/01 completed Not Available Not Available Not Available naproxen 500 mg tablet 08/01 completed Not Available Not Available Not Available amoxicillin 875 mg-potassium clavulanate 125 mg tablet 08/01 completed Not Available Not Available Not Available Ventolin HFA 90 mcg/actuatio n aerosol inhaler 08/01 completed Not Available Not Available Not Available Vitals Date Recorded Body height Body mass index (BMI) Body weight Provider Name and Address Organization Details Last Updated DateTime 08/02/2023 167.64 cm 29.1 kg/m2 16413.63 g Chani Krueger ATC L [employer] 08/02/2023 15:00:50 Date Recorded Body height Body mass index (BMI) Body weight Provider Name and Address Organization Details Last Updated DateTime 09/06/2023 167.64 cm 29.9 kg/m2 15372.59 g Esmer Dumont CNA [employer] 09/06/2023 14:22:13 Social History None recorded. Functional Status Question Answer Note LastModified by Organization D etails LastModified Time What is your level of alcohol consumption? Moderate [email or web address] Information not available 08/02/2023 Mental Status None recorded. Family History Relationship Description Onset Age of this Age Resolved Age Notes LastModified by Organization Details LastModified Time Mother Heart disease [email or web address] Not available 07/23 15:02:39 Mother Hypertensive disorder [email or web address] Not available 07/23 15:02:51 Medical History Condition Response ARTHRITIS Y Gynecological HistoryNo gynecological history recorded. Obstetrics History GPAL:G 0 P 0 0 0 0 Past Encounters Encounter ID Performer Location Encounter Start Date Encounter Closed Date Diagnosis/Indication Diagnosis SNOMED-CT Code Diagnosis ICD10 Code Diagnosis Note [id number] Alejandro Ross MD [facility] [place] [address] [place] [address] 08/02/2023 14:45:02 08/02/2023 15:51:56 Pain of left knee joint [id number] 40689 M25.617 [id number] Alejandro Ross MD [facility] [address] [place] [address] 09/06/2023 14:19:32 09/06/2023 15:32:13 Pain of left knee joint 9081070320 46642 M25.562 Health Concerns Section Related Observation LastModified by Organization Detai ls LastModified Time None Recorded Concern Status LastModified by Organization Details LastModified Time None Recorded Advance Directives Directive None Recorded Payers Insurance Date Sequence Insurance Name Policy Number Policy Harmon Covered Member ID Harmon Member ID Guarantor Name 07/26/2023 1 [facility] OPEN ACCESS [employer] (POS) [id number] Kiki Sunshine [id number] Kiki Sunshine 09/11/2023 1 [facility] [id number] Kiki Sunshine [id number] Kiki Sunshine OBGyn Episode No OBEpisode recorded.
--- OUTSIDE RECORDS SUMMARY | 2025-05-03 15:23 | XMS_ITS | Data Portability ---
Author Organization [facility] Address [address] [facility] [place] [address] Care Team Providers Care Sales And Service Engineer Name Role Phone CORNELIUS COTA Primary Care Provider JOCE CARDONA Entry Level Paralegal Assessment Encounter Date Assessment Date Assessment LastModified by Organization Details LastModified Time 01/23/2025 01/23/2025 CLIVE Carter Not available 01/23/2025 12:34:29 Plan of Treatment Reminders Order Date Submit Date Provider Last Modified By Organization Details Last Modified Time Details Appointments ANY 15 2024 08:45A M MAGGIE Briggs-Timi Not available Not available Not available Lab rsv (respi ratory syncyt ial virus) , rapid, isabela wilson 2024 025 hudson In-Office Order, Internal Use Only DO Not Attach Compendium DO Not Attach Compendium, Do Not Delete/merge, 05/01/2025 12:21:43 rapid flu (A+B) 2024 025 [email or web address] In-Office Order, Internal Use Only DO Not Attach Compendium DO Not Attach Compendium, Do Not Delete/merge, 05/01/2025 12:21:31 rapid SARS CoV 2 Ag, QL IA, respir atory specim en 2024 025 [email or web address] In-Office Order, Internal Use Only DO Not Attach Compendium DO Not Attach Compendium, Do Not Delete/merge, [id number] 05/01/2025 12:21:35 lipid panel, serum 2024 [facility], [facility] [address], [address], [place], [address], 01/28/2025 12:20:27 CBC 2024 [facility], [facility] [address], [address], [place], [address], 01/28/2025 12:20:33 urinal ysis, comple te 2024 [facility], [address] [place], [place] [address], [address], [place], [address], 01/28/2025 12:20:32 TSH, ultra- sensit echo, serum 2024 025 [facility], [address] [place], [place] [address], [address], [place], [address], 01/28/2025 12:20:31 vitami n D, 25-hyd harris, total, serum 2024 025 [facility], [address] [facility] [address], [address], [place], [address], 01/28/2025 12:20:35 CMP, serum or plasma 2024 025 [facility], [address] [facility] [address], [address], [place], [address], 01/28/2025 12:20:28 lipid panel, serum 2024 025 [email or web address] [facility], [address] [facility] [address], [address], [place], [address], 01/27/2025 10:43:28 CBC 2024 025 [email or web address] [facility], [address], [address], [place], [address], 01/27/2025 10:43:46 urinal ysis, comple te 2024 025 [facility], [address], [address], [place], [address], 01/27/2025 10:43:41 TSH, ultra- sensit echo, serum 2024 025 [facility]Parent[facility], [address] [facility] [address], [address], [place], [address], 01/27/2025 10:43:53 vitami n D, 25-hyd harris, total, serum 2024 025 [facility], [address], [address], [place], [address], 01/27/2025 10:43:59 CMP, serum or plasma 2024 025 [facility], [address], [address], [place], [address], 01/27/2025 10:43:35 lipid panel, serum 2023 024 [email or web address] [facility], [address], [address], [place], [address], 01/27/2025 10:04:11 CMP, serum or plasma 2023 024 [email or web address] [facility], [address], [address], [place], [address], 01/27/2025 10:04:55 CBC 2023 024 [email or web address] [facility], [address] [facility], [address], [place], [address], 01/27/2025 10:04:45 urinal ysis, comple te 2023 024 [email or web address] [facility], [address] [facility], [address], [place], [address], 01/27/2025 10:04:34 TSH, ultra- sensit echo, serum 2023 024 [email or web address] [facility], [address] [facility], [address], [place], [address], 01/27/2025 10:04:24 Referral None record ed. Procedures pulse oximet ry (PROC) 2024 025 [place] In-Office Order, Internal Use Only DO Not Attach Compendium DO Not Attach Compendium, Do Not Delete/merge, [id number] 01/23/2025 10:04:41 pulse oximet ry (PROC) 2023 024 [place] In-Office Order, Internal Use Only DO Not Attach Compendium DO Not Attach Compendium, Do Not Delete/merge, [id number] 09/05/2024 12:10:53 pulse oximet ry (PROC) 2023 024 [place] In-Office Order, Internal Use Only DO Not Attach Compendium DO Not Attach Compendium, Do Not Delete/merge, [id number] 05/31/2024 11:09:52 Surgeries None record ed. Imaging XR, chest, 2 view 2024 025 [facility] (Imaging), [facility], [place], [address], 05/02/2025 09:06:46 Medication Orders Zithro max Z-Jose Martin 250 mg tablet 2024 025 [facility] #[id number], [address] [facility], [place], [place], [id number], 05/01/2025 12:21:09 Medrol (Jose Martin) 4 mg tablet s in a dose pack 2024 025 [facility] #12119, [address] [facility], [place], [place], [id number], 05/01/2025 12:21:09 albute rol sulfat e HFA 90 mcg/ac tuatio n aeroso l inhale r 2024 025 [facility] #62144, [address] [place] [address], [id number], 05/01/2025 12:21:09 albute rol sulfat e 2.5 mg/3 mL (0.083 %) soluti on for nebuli zation 2024 025 [email or web address] Not available 05/01/2025 13:13:58 albute rol sulfat e 2.5 mg/3 mL (0.083 %) soluti on for nebuli zation 2024 025 [email or web address] Not available 05/01/2025 13:17:33 gemfib rozil 600 mg tablet [email or web address] [facility] [address] [facility]61797, [address] [facility], [place], [place], [id number], 01/23/2025 09:56:47 gabape ntin 600 mg tablet [email or web address] [facility] [address] [facility] #05925, [address] [facility], [place], [place], [id number], 01/23/2025 09:56:47 hydroc hlorot hiazid e 25 mg tablet [email or web address] [facility] [address] [facility] #74939, [address] [place], [place], [id number], 01/23/2025 09:56:47 Cozaar 50 mg tablet [address] [facility] #31390, [address] [place], [place], [id number], 01/23/2025 12:34:38 amlodi pine 5 mg tablet [address] [facility] #36588, [address] [place], [place], [id number], 01/23/2025 09:56:47 gemfib rozil 600 mg tablet 2023 024 [facility] #80240, [address] [place] [address], [id number], 09/05/2024 10:26:50 gabape ntin 600 mg tablet 2023 024 [facility] #21482, [address] [place] [address], [id number], 09/05/2024 10:24:01 flutic asone propio amaris 50 mcg/ac tuatio n nasal spray, suspen john 2023 024 [facility] #22998, [address] [place], [place], [id number], 09/05/2024 10:24:02 hydroc hlorot hiazid e 25 mg tablet 2023 024 [facility] #21566, [address] [place], [place], [id number], 09/05/2024 10:24:02 Cozaar 50 mg tablet 2023 024 [facility], [address] [place], [place], [id number], 09/06/2024 12:29:47 amlodi pine 5 mg tablet 2023 [facility] #97323, [address] [place], [place], [id number], 09/05/2024 10:24:08 gabape ntin 600 mg tablet 2023 024 [facility] #09482, [address] [place], [place], [id number], 05/31/2024 10:38:32 gemfib rozil 600 mg tablet 2023 [facility] #50665, [address] [place], [place], [id number], 05/31/2024 10:38:31 flutic asone propio amaris 50 mcg/ac tuatio n nasal spray, suspen john 2023 [facility] #43993, [address] [facility], [place], [place], [id number], 05/31/2024 10:38:33 hydroc hlorot hiazid e 25 mg tablet 2023 024 [facility] #37644, [address] [place], [place], [id number], 05/31/2024 10:38:33 Cozaar 50 mg tablet 2023 024 [facility] #63936, [address] [place], [place], [id number], 05/31/2024 10:38:31 amlodi pine 5 mg tablet 2023 024 [facility] #02171, [address] [facility], [place], [place], [id number], 05/31/2024 10:38:32 Patient TargetsNo targets recorded. Patient Instructions Encounter Date Encounter Id Patient Instructions Last Modified By Organization Details Last Modified Time 05/31/2024 [id number] Dupuytren's Disease: Care Instructions yarauz Not available 05/31/2024 10:42:28 osteoarthritis: care instructions yarauz Not available 05/31/2024 10:38:22 When You Want to Lose Weight: Care Instructions yarauz Not available 05/31/2024 10:38:22 A healthy lifestyle: care instructions yarauz Not available 05/31/2024 10:38:22 learning about healthy weight yarauz Not available 05/31/2024 10:38:22 learning about h igh blood pressure yarauz Not available 05/31/2024 10:38:22 Uncontrolled Hypertension potential risks, heart attack, , stroke, kidney failure etc. Hypertension is the silent Killer Take your Hypertension medication daily keep appointments stop concentrated sugars--follow 1500 meal plan exercise 50-60 minutes daily on most days see eye doctor once a year see dentist every 6 months get shingles vaccine at [facility] Keep a food diary Follow a healthy heart low fat low cholesterol diet exercise 50-60 minutes 5-6 times per week Increase water intake Stop concentrated sugars Uncontrolled Hypertension potential risks, heart attack, , stroke, kidney failure etc. Hypertension is the silent Killer Take your Hypertension medication daily keep appointments stop concentrated sugars--follow 1500 meal plan exercise 50-60 minutes daily on most days see eye doctor once a year see dentist every 6 months test results yarauz Not available 05/31/2024 10:21:59 09/05/2024 [id number] influenza (flu) vaccine: care instructions yarauz Not available 09/05/2024 10:23:41 When You Want to Lose Weight: Care Instructions yarauz Not available 09/05/2024 10:23:41 osteoarthritis: care instructions yarauz Not available 09/05/2024 10:23:42 learning about h igh blood pressure yarauz Not available 09/05/2024 10:23:42 Uncontrolled Hypertension potential risks, heart attack, , stroke, kidney failure etc. Hypertension is the silent Killer Take your Hypertension medication daily keep appointments stop concentrated sugars--follow 1500 meal plan exercise 50-60 minutes daily on most days see eye doctor once a year see dentist every 6 months get shingles vaccine at [facility] Keep a food diary Follow a healthy heart low fat low cholesterol diet exercise 50-60 minutes 5-6 times per week Increase water intake Stop concentrated sugars Uncontrolled Hypertension potential risks, heart attack, , stroke, kidney failure etc. Hypertension is the silent Killer Take your Hypertension medication daily keep appointments stop concentrated sugars--follow 1500 meal plan exercise 50-60 minutes daily on most days see eye doctor once a year see dentist every 6 months tvaccine hudson Not available 09/05/2024 10:33:44 01/23/2025 [id number] osteoarthritis: care instructions Not available 01/23/2025 09:56:47 A healthy lifestyle: care instructions [email or web address] Not available 01/23/2025 09:56:47 A healthy lifestyle: care instructions [email or web address] Not available 01/23/2025 09:56:47 When You Want to Lose Weight: Care Instructions Not available 01/23/2025 09:56:47 learning about healthy weight [email or web address] Not available 01/23/2025 09:56:47 learning about h igh blood pressure Not available 01/23/2025 09:56:47 05/01/2025 [id number] learning about hypoxemia yarauz Not available 05/01/2025 12:21:09 application of oxygen* - Sat reading during oxgen administration continues to be 98-99% while on 4L NC. [email or web address] Not available 05/01/2025 13:20:04 GO TO ER FOR WORSENING SYMPTOMS yauz Not available 05/01/2025 12:19:55 Bronchodilators. These help open your airways and make breathing easier. Bronchodilators are either short-acting (work for 6 to 9 hours) or long-acting (work for 24 hours). You inhale most bronchodilators, so they start to act quickly. Always carry your quick-relief inhaler with you in case you need it while you are away from home. Corticosteroids. These reduce airway inflammation. They come in pill or inhaled form. You must take these medicines every day for them to work well. Antibiotics. These medicines are used when you have a bacterial lung infection. Take your medicines exactly as prescribed. .If worsening symptoms or trouble breathing to seek immediate care .Humidifier .Proper ventilation .Proper use of chemicals .Increase fluid intake hudson Not available 05/01/2025 10:51:35 Reason for Referral None Reported. Results Created Date Observation Date Name Description Value Unit Range Abnormal Flag Note LastModifiedBy Organization Detail LastModifiedTime 05/31/20 24 05/31/2024 pulse oxime try (PROC ) Resting Pulse Ox 98 Not Available In-Off ice Order Internal Use Only DO Not Attach Compendium DO Not Attach Compendium, Do Not Delete/merge, [id number] 05/31/2024 10:21:41 09/05/20 24 09/05/2024 pulse oxime try (PROC ) Resting Pulse Ox 97 Not Available In-Off ice Order Internal Use Only DO Not Attach Compendium DO Not Attach Compendium, Do Not Delete/merge, [id number] 09/05/2024 10:21:28 01/24/20 25 01/23/2025 pulse oxime try (PROC ) Resting Pulse Ox 98% Not Available In-Off ice Order Internal Use Only DO Not Attach Compendium DO Not Attach Compendium, Do Not Delete/merge, [id number] 01/23/2025 09:21:00 01/28/20 25 01/28/2025 LIPID PANEL cholesterol, total 251 mg/dL 100-19 9 above high normal Not Available [facility] ([facility]) [address] [facility], [place], [address], 01/28/2025 12:20:27 01/28/20 25 01/28/2025 LIPID PANEL triglyceride s 103 mg/dL 0-149 Not Available [facility] ([facility]) [address] [facility], [place], [address], 01/28/2025 12:20:27 01/28/20 25 01/28/2025 LIPID PANEL HDL cholesterol 81 mg/dL >39 Not Available [facility]) [address] [facility], [place], [address], 01/28/2025 12:20:27 01/28/20 25 01/28/2025 LIPID PANEL VLDL cholesterol willa 18 mg/dL 5-40 Not Available [facility]) [address] [place], [address], 01/28/2025 12:20:27 01/28/20 25 01/28/2025 LIPID PANEL LDL chol calc ([facility]) 152 mg/dL 0-99 above high normal Not Available [facility] ([facility]) [address] [place], [address], 01/28/2025 12:20:27 01/28/20 25 01/28/2025 COMP. METAB OLIC PANEL (14) glucose 98 mg/dL 70-99 Not Available [facility] ([facility]) [address] [place], [address], 01/28/2025 12:20:28 01/28/20 25 01/28/2025 COMP. METAB OLIC PANEL (14) BUN 13 mg/dL 8-27 Not Available [facility] ([facility]) [address] [place], [address], 01/28/2025 12:20:28 01/28/20 25 01/28/2025 COMP. METAB OLIC PANEL (14) creatinine 0.52 mg/dL 0.57-1 .00 below low normal Not Available [facility] ([facility]) [address] [place], [address], 01/28/2025 12:20:28 01/28/20 25 01/28/2025 COMP. METAB OLIC PANEL (14) eGFR 102 mL/mi n/1.7 3 >59 Not Available [facility] ([facility]) [address] [place], [address], 01/28/2025 12:20:28 01/28/20 25 01/28/2025 COMP. METAB OLIC PANEL (14) BUN/creatini ne ratio 16 10- Not Available [facility] ([facility]) [address] [facility] [place], [address], 01/28/2025 12:20:28 01/28/20 25 01/28/2025 COMP. METAB OLIC PANEL (14) sodium 140 mmol/ L 134-14 4 Not Available [facility] ([facility]) [address] [facility] [place], [address], 01/28/2025 12:20:28 01/28/20 25 01/28/2025 COMP. METAB OLIC PANEL (14) potassium 4.5 mmol/ L 3.5-5. 2 Not Available [facility] ([facility]) [address] [facility], [place], [address], 01/28/2025 12:20:28 01/28/20 25 01/28/2025 COMP. METAB OLIC PANEL (14) chloride 98 mmol/ L 96-106 Not Available [facility] ([facility]) [address] [facility] [place], [address], 01/28/2025 12:20:28 01/28/20 25 01/28/2025 COMP. METAB OLIC PANEL (14) carbon dioxide, total 26 mmol/ L 20-29 Not Available [facility] ([facility]) [address] [facility] [place], [address], 01/28/2025 12:20:28 01/28/20 25 01/28/2025 COMP. METAB OLIC PANEL (14) calcium 10.9 mg/dL 8.7-10 .3 above high normal Not Available [facility] ([facility]) [address] [facility] [place], [address], 01/28/2025 12:20:28 01/28/20 25 01/28/2025 COMP. METAB OLIC PANEL (14) protein, total 7.0 g/dL 6.0-8. 5 Not Available [facility] ([facility]) [address] [facility], [place], [address], 01/28/2025 12:20:28 01/28/20 25 01/28/2025 COMP. METAB OLIC PANEL (14) albumin 4.6 g/dL 3.9-4. 9 Not Available [facility] ([facility]) [address] [facility], [place], [address], 01/28/2025 12:20:28 01/28/20 25 01/28/2025 COMP. METAB OLIC PANEL (14) globulin, total 2.4 g/dL 1.5-4. 5 Not Available [facility] ([facility]) [address] [place] [place], [address], 01/28/2025 12:20:28 01/28/20 25 01/28/2025 COMP. METAB OLIC PANEL (14) bilirubin, total 0.4 mg/dL 0.0-1. 2 Not Available [facility] ([facility]) [address] [facility], [place], [address], 01/28/2025 12:20:28 01/28/20 25 01/28/2025 COMP. METAB OLIC PANEL (14) alkaline phosphatase 63 IU/L 44-121 Not Available [facility]) [address] [facility] [place], [address], 01/28/2025 12:20:28 01/28/20 25 01/28/2025 COMP. METAB OLIC PANEL (14) AST (SGOT) 47 IU/L 0-40 above high normal Not Available [facility] ([facility]) [address] [facility] [place], [address], 01/28/2025 12:20:28 01/28/20 25 01/28/2025 COMP. METAB OLIC PANEL (14) ALT (SGPT) 48 IU/L 0-32 above high normal Not Available [facility] ([facility]) [address] [place], [address], 01/28/2025 12:20:28 01/28/20 25 01/28/2025 MICRO SCOPI C EXAMI NATIO N WBC None seen /hpf 0-5 Not Available [facility] ([facility]) [address] [facility], [place], [address], 01/28/2025 12:20:30 01/28/20 25 01/28/2025 MICRO SCOPI C EXAMI NATIO N RBC 0-2 /hpf 0-2 Not Available [facility] ([facility]) [address] [facility], [place], [address], 01/28/2025 12:20:30 01/28/20 25 01/28/2025 MICRO SCOPI C EXAMI NATIO N epithelial cells (non renal) 0-10 /hpf 0-10 Not Available [facility]) [address] [facility], [place], [address], 01/28/2025 12:20:30 01/28/20 25 01/28/2025 MICRO SCOPI C EXAMI NATIO N casts None seen /lpf nonese en Not Available [facility] ([facility]) [address] [facility], [place], [address], 01/28/2025 12:20:30 01/28/20 25 01/28/2025 MICRO SCOPI C EXAMI NATIO N bacteria None seen nonese en/few Not Available [facility] ([facility]) [address] [facility], [place], [address], 01/28/2025 12:20:30 01/28/20 25 01/28/2025 TSH RFX ON ABNOR MAL TO FREE T4 TSH 2.520 uIU/m L 0.450- 4.500 Not Available [facility] ([facility]) [address] [facility], [place], [address], 01/28/2025 12:20:31 01/28/20 25 01/28/2025 URINA LYSIS , COMPL ETE specific gravity 1.017 1.005- 1.030 Not Available [facility] ([facility]) [address] [place], [address], 01/28/2025 12:20:32 01/28/20 25 01/28/2025 URINA LYSIS , COMPL ETE pH 8.5 5.0-7. 5 above high normal Not Available [facility] ([facility]) [address] [place], [address], 01/28/2025 12:20:32 01/28/20 25 01/28/2025 URINA LYSIS , COMPL ETE urine-color YELLOW yellow Not Available [facility]) [address] [place], [address], 01/28/2025 12:20:32 01/28/20 25 01/28/2025 URINA LYSIS , COMPL ETE appearance CLOUDY clear abnormal Not Available [facility]) [address] [place], [address], 01/28/2025 12:20:32 01/28/20 25 01/28/2025 URINA LYSIS , COMPL ETE WBC esterase 2+ negati ve abnormal Not Available [facility] ([facility]) [address] [place], [address], 01/28/2025 12:20:32 01/28/20 25 01/28/2025 URINA LYSIS , COMPL ETE protein NEGATI VE negati ve/tra ce Not Available [facility] ([facility]) [address] [place], [address], 01/28/2025 12:20:32 01/28/20 25 01/28/2025 URINA LYSIS , COMPL ETE glucose NEGATI VE negati ve Not Available [facility] ([facility]) [address] [place], [address], 01/28/2025 12:20:32 01/28/20 25 01/28/2025 URINA LYSIS , COMPL ETE ketones NEGATI VE negati ve Not Available [facility] ([facility]) [address] [place], [address], 01/28/2025 12:20:32 01/28/20 25 01/28/2025 URINA LYSIS , COMPL ETE occult blood NEGATI VE negati ve Not Available [facility] ([facility]) [address] [place], [address], 01/28/2025 12:20:32 01/28/20 25 01/28/2025 URINA LYSIS , COMPL ETE bilirubin NEGATI VE negati ve Not Available [facility] ([facility]) [address] [place], [address], 01/28/2025 12:20:32 01/28/20 25 01/28/2025 URINA LYSIS , COMPL ETE urobilinogen ,semi-qn 0.2 mg/dL 0.2-1. 0 Not Available [facility] ([facility]) [address] [place], [address], 01/28/2025 12:20:32 01/28/20 25 01/28/2025 URINA LYSIS , COMPL ETE nitrite, urine NEGATI VE negati ve Not Available [facility] ([facility]) [address] [place], [address], 01/28/2025 12:20:32 01/28/20 25 01/28/2025 URINA LYSIS , COMPL ETE microscopic examination SEE BELOW: Micro scopi c was indic ated and was perfo rmed. Not Available [facility] ([facility]) [address] [place], [address], 01/28/2025 12:20:32 01/28/20 25 01/28/2025 CBC, PLATE LET, NO DIFFE RENTI AL WBC 8.7 x10e3 /uL 3.4-10 .8 Not Available [facility] ([facility]) [address] [facility], [place], [address], 01/28/2025 12:20:33 01/28/20 25 01/28/2025 CBC, PLATE LET, NO DIFFE RENTI AL RBC 4.80 x10e6 /uL 3.77-5 .28 Not Available [facility] ([facility]) [address] [facility], [place], [address], 01/28/2025 12:20:33 01/28/20 25 01/28/2025 CBC, PLATE LET, NO DIFFE RENTI AL hemoglobin 15.6 g/dL 11.1-1 5.9 Not Available [facility] ([facility]) [address] [facility], [place], [address], 01/28/2025 12:20:33 01/28/20 25 01/28/2025 CBC, PLATE LET, NO DIFFE RENTI AL hematocrit 45.4 % 34.0-4 6.6 Not Available [facility] ([facility]) [address] [facility], [place], [address], 01/28/2025 12:20:33 01/28/2001/28/2025 CBC, PLATE LET, NO DIFFE RENTI AL MCV 95 fL 79-97 Not Available [facility] ([facility]) [address] [facility], [place], [address], 01/28/2025 12:20:33 01/28/20 25 01/28/2025 CBC, PLATE LET, NO DIFFE RENTI AL MCH 32.5 pg 26.6-3 3.0 Not Available [facility] ([facility]) [address] [facility], [place], [address], 01/28/2025 12:20:33 01/28/20 25 01/28/2025 CBC, PLATE LET, NO DIFFE RENTI AL MCHC 34.4 g/dL 31.5-3 5.7 Not Available [facility] ([facility]) [address] [facility], [place], [address], 01/28/2025 12:20:33 01/28/20 25 01/28/2025 CBC, PLATE LET, NO DIFFE RENTI AL RDW 12.4 % 11.7-1 5.4 Not Available [facility] ([facility]) [address] [facility], [place], [address], 01/28/2025 12:20:33 01/28/20 25 01/28/2025 CBC, PLATE LET, NO DIFFE RENTI AL platelets 241 x10e3 /uL 150-45 0 Not Available [facility] ([facility]) [address] [facility], [place], [address], 01/28/2025 12:20:33 01/28/20 25 01/28/2025 VITAM IN D, 25-HY DROXY vitamin D, 25-hydroxy 47.9 NG/mL 30.0-1 00.0 Vitam in D defic iency has been defin ed by the Insti tute of Medic ine and an Endoc rine Socie ty pract ice guide line as a level of serum 25-OH vitam in D less than 20 ng/mL (1,2) . The Endoc rine Socie ty went on to [facility] er defin e vitam in D insuf ficie ncy as a level betwe en 21 and 29 ng/mL (2). 1. IOM (Inst itute of Medic ine). 2010. Dieta ry refer ence intak es for calci um and D. Cezar marx [place]: [facility] Press . 2. Lily hartley [place], Marcos rios [place], Cristal off-F errar i [place], et al. Evalu ation , treat ment, and preve ntion of vitam in D defic iency : an Endoc rine Socie ty clini willa pract ice guide line. JCEM. 2010; 96(7) :1911 -30. Not Available [facility] ([facility]) [address] [facility], [place], [address], 01/28/2025 12:20:35 05/01/20 25 05/01/2025 rapid SARS CoV 2 Ag, QL IA, respi rator y speci men rapid SARS CoV 2 Ag, QL IA, respiratory specimen negati ve Not Available In-Office Order Internal Use Only DO Not Attach Compendium DO Not Attach Compendium, Do Not Delete/merge, [id number] 05/01/2025 10:40:41 05/01/20 25 05/01/2025 rapid flu (A+B) Flu A negati ve Not Available In-Office Order Internal Use Only DO Not Attach Compendium DO Not Attach Compendium, Do Not Delete/merge, [id number] 05/01/2025 10:39:26 05/01/2005/01/2025 rapid flu (A+B) Flu B negati ve Not Available In-Office Order Internal Use Only DO Not Attach Compendium DO Not Attach Compendium, Do Not Delete/merge, [id number] 05/01/2025 10:39:26 05/01/20 25 05/01/2025 rsv (resp irato ry syncy tial virus ), rapid , nasop haryn geal RSV negati ve Not Available In-Office Order Internal Use Only DO Not Attach Compendium DO Not Attach Compendium, Do Not Delete/merge, [id number] 05/01/2025 10:39:17 05/06/20 24 05/02/2024 DEXA, axial skele ton No observ ation record ed. [facility] [address], [place], [address], 05/31/2024 10:22:40 03/06/20 25 use echoc ardio gram [facility] [address] [facility] [address] Echoca rdiogr aphy Report Pat.Na me: KIKI SUNSHINE Pat.ID : [id number] .Calvin e: [id number] Exam Time: 8:08:0 0 AM Study Type:E CHO WITH CARDIA C DOPPLE R COMP Height : 66 in Weight : 188 lb BSA: 1.95 m2 Age: [birth year],64 Y Sex: F BP: 155/72 Sonogr phr: Whiteh all, Leidy RCS Pat. Stat.: Outpat ient CPT - 4: 25217 Reason for Study: Modera te Tricus pid Regurg itatio n Proced ures: 2D, M-mode , Dopple r, Color Flow, The study qualit y is techni alexa adequa te. ++++++ ++++++ ++++++ ++++++ ++++++ ++++++ SUMMAR Y: ++++++ ++++++ ++++++ ++++++ ++++++ ++++++ The left ventri cular size is normal . The left ventri cular systol ic functi on is normal . Estima zofia left ventri cular ejecti on fracti on is 60-65% . Mild concen tric left ventri cular hypert rophy. Left ventri cular diasto lic functi on is abnorm al (grade 1 - impair ed relaxa tion). The right ventri cular size is mildly enlarg ed. Right ventri cular systol ic functi on is normal . Mild aortic regurg itatio n. Mild tricus pid regurg itatio n. ++++++ ++++++ ++++++ ++++++ ++++++ ++++++ FINDIN GS: ++++++ ++++++ ++++++ ++++++ ++++++ ++++++ LV: The left ventri cular size is normal . The left ventri cular systol ic functi on is normal . Estima zofia left ventri cular ejecti on fracti on is 60-65% . Mild concen tric left ventri cular hypert rophy. The septal E/e' is normal at < 8. The latera l E/e' is normal at <8. Left ventri cular diasto lic functi on is abnorm al (grade 1 - impair ed relaxa tion). WM: Wall motion appear s normal in all segmen ts. RV: The right ventri cular size is mildly enlarg ed. Right ventri cular systol ic functi on is normal . TAPSE = 23.2mm (<16 mm indica marita systol ic RV dysfun ction) . IVS: Intrav entric ular septum is normal . LA: The left atrial volume is normal ( less than 34 ml/M2) . RA: The right atrial size is normal . IAS: Atrial septum is normal . TROY: No eviden ce of perica rdial effusi on. AO: Normal aortic root. PA: The peak pulmon reyna artery systol ic pressu re is estima zofia to be approx imatel y 20.0 mmHg. Estima zofia right atrial pressu re of 3 mmHg. SVn: Inferi or vena cava is normal . Inferi or vena cava shows >50% collap se with respir ation consis tent with normal right atrial pressu re. AV: The aortic valve is trilea flet. No eviden ce of aortic valve stenos is. Mild aortic regurg itatio n. MV: Trace mitral regurg itatio n. No eviden ce of mitral stenos is. PV: No eviden ce of pulmon ic valve stenos is. No eviden ce of pulmon ic regurg itatio n. TV: Mild tricus pid regurg itatio n. No eviden ce of tricus pid valve stenos is. ++++++ ++++++ ++++++ ++++++ ++++++ ++++++ MEASUR EMENTS : ++++++ ++++++ ++++++ ++++++ ++++++ ++++++ DOPPLE R Pulmon reyna Veins PVnpkV eld 46 cm/s Pulmon reyna Vein 0.57 m/s PVnVs/ Vd 1.23 AR-wav e veloci t 0.33 m/s S1-wav e veloci t 0.57 m/s PVn A Dur 0.097 second TV Forwar d Flow TV E/A 1.09 Aortic Valve Cardio vascul ar 2.09 cm Aortic Root Jeanne 3.48 cm P1/2t 0.413 second Left atrial jeanne 4.03 cm LVOT/A oV (BAKER BENCH) ( 0.5 AV Antegr damon Flow Peak Veloci ty ( 1.4 m/s Mean Veloci ty ( 0.95 m/s Veloci ty Time I 29.7 cm AV Antegr damon Flow Simpli fied Wilmar lli Gradie nt pressu 7.8 mmHg Gradie nt pressu 4 mmHg AV Contin uity Equati on by Veloci ty Time Integr al Aortic Valve Ar 1.96 cm2 AoV Area Index 1.01 AV Regurg itant Flow AR Vmax (Diast o 1.51 m/s Decele ration Ti 0.488 second AR Dylan (Diast ol 0.99 m/s AR PGmax (Diast 9.6 mmHg Decele ration Sl 1.05 m/s2 Left Ventri tamara Stroke Volume ( 58.2 ml Cardia c Output 4.77 liter per minute LV Antegr damon Flow Peak Veloci ty ( 0.7 m/s Mean Veloci ty ( 0.51 m/s Veloci ty Time I 17 cm LV Antegr damon [facility] Gradie nt pressu 2 mmHg Gradie nt pressu 1.2 mmHg Mitral Valve Mitral Valve E- 0.15 second Mean Myocar dial 8.4 centim eter/s econd Myocar dial Velo 10.8 centim eter/s econd Ratio of Mitral 7.69 Myocar dial Velo 6 centim eter/s econd Ratio of Mitral 5.98 Mitral Valve E 0.75 Ratio of Mitral 10.8 MV Antegr damon Flow Mitral Valve E- 0.65 m/s Mitral Valve A- 0.86 m/s PV Antegr damon Flow Peak Veloci ty ( 0.97 m/s Mean Veloci ty ( 0.67 m/s Veloci ty Time I 20.2 cm PV Vmax (Diast o 0.83 m/s PV Antegr damon Flow Simpli fied Bernou lli Gradie nt pressu 3.8 mmHg PV PGmax (Systo 2.7 mmHg Gradie nt pressu 1.9 mmHg Tricus pid Valve Tricus pid Valve 0.41 m/s Tricus pid Valve 0.37 m/s TV Regurg itant Flow Maximu mTricu spi 2.07 m/s Maximu mTricu spi 17.2 mmHg 2D Left Ventri tamara LVIDd 4.66 cm (3.6-5 .2) LVEDV BP 56.5 ml LV EDV 61.3 ml LVESV BP 22.6 ml LV ESV 19.8 ml LV EF 67.7 % LV EDV 50.9 ml Left Ventri cula -16.8 % LV ESV 24.6 ml LV EF 51.7 % LV EF BP 60 % Left Ventri cula -10.4 % Left Ventri cula -13.6 % Left Atrium Left Atrium Vol 21 ml/m2 LA Biplan e Left Atrium Vol 41 ml LA Single Plane Left Atrium sakina 5.4 cm Left Atrium sakina 6.33 cm Left Atrium Vol 39.5 ml Left Atrium Vol 37 ml LV Teichh olz Interv entric nya 0.95 cm Left Ventri tamara 3 cm Left Ventri tamara 0.92 cm Heart rate 64 Heart beat per minute Right Atrium RA sys Area 12.6 cm2 Right Ventri tamara Right Ventri cul 3.9 cm RVIDd 3.93 cm MMODE Tricus pid Valve Tricus pid annul 2.32 cm 2024 11:38 AM [facility] [address] [place], [address], 03/10/2025 11:09:42 05/02/2005/02/2025 XR, chest , 2 view No observ ation record ed. [facility] [address], [place], [address], 05/02/2025 10:38:07 Result Notes None recorded. Problems Name Problem SNOMED Code Status Onset Date Resolution Date Notes Provider Name and Address Organization Details Recorded Time Andrew n's contract ure of finger 706054588 Active 2017 Nicole mathur MA [facility], [place] - [facility] 2 11:02:18 History of polyp of colon 050834579 Active 2017 had colonosco py in 2008--was suppose to have repeat in 2013-had done 12/17/2018 -colonic hyperplas iarepeat in 5 years 2023 [facility] Attn: Maryellen g,[address] [facility], [place], [address], [place] - [facility] 2 11:34:39 Vitamin D deficien cy 74830303 Active 2018 [facility] Attn: Accounttiara g,[address] [facility], [place], [address], [place] [facility] 3 13:20:20 Mixed hyperlip idemia 476378858 Active 2020 Nicole mathur, [place], [place] [facility] 2 11:00:49 Dyspnea on exertion 62670299 Active 2020 Nicole mathur, [place], [place] [facility] 2 11:02:46 EKG: Incomple te right bundle branch block 910766304 Active 2020 Cornelius Cota [facility] Attn: Maryellen barros,[address] [facility], [place], [address], [place] [facility] 2 11:34:39 Body mass index 25-29 - overweig ht 916651059 Active 2021 Cornelius Cota [facility] Attn: Maryellen g,[address] [facility], [place], [address], [place] [facility] 3 13:20:20 Noncompl iance with medicati on regimen 493143619 Active 2021 Cornelius Cota [facility] Attn: Accountin g,[address] [facility], [place], [address], [place] [facility] 3 13:20:20 Osteoart hritis 091386096 Active 2022 Cornelius Cota [facility] Attn: Accountin g,[address] [facility], [place], [address], [place] [facility] 4 12:43:41 Overweig 389457282 [facility] 2022 [facility] Attn: Accountin g,[address] [facility], [place], [place], [address] [place] [address] 2, [place] [facility] 3 14:26:11 Air trapping 43672824 Active 2022 MALLIKA VILLAGOMEZ Attn: Accountin g,[address] [facility], [place], [place], [address] [place] [address], [place] [facility] 3 12:23:09 Screenin g for malignan t neoplasm of colon Completed 202301/29/2024 Removal Reason: done MAGGIE BriggsTIMI Attn: Accountin g,[address] [facility], [place], [place], [address] [place] [address], [place] [facility] 4 12:43:27 Obesity 943910419 Active 2023 [facility] Attn: Accountin g,[address] [facility], [place], [place], [address] [place] [address] 2, [place] [facility] 4 10:41:06 Osteopen ia 871947962 Active 2023 [facility] Attn: Accountin g,[address] [facility], [place], [place], [address] [place] [address] 2, [place] [facility] 4 11:04:29 Abnormal liver function 43175302 Active 2023 [facility] Attn: Accountin g,[address] [facility], [place], [place], [address] [place] [address] 2, [place] [facility] 4 11:05:13 Alcohol intake above recommen ded sensible limits 859270862 Active 2023 [facility] Attn: Accountin g,[address] [facility], [place], [place], [address] [place] [address] 2, [place] [facility] 4 12:32:02 Supraven tricular bigeminy 875580734 Active 2016 [facility] Attn: Maryellen barros,[address] [facility], [place], [address], [facility] - SI 2 11:34:39 [facility] hyperten john 87503646 Active 2016 SCOOTER Blanco, [facility] SI 2 10:59:32 Hyperlip idemia 02508473 Completed 201603/10/2021 Removal Reason: specific diagnosis provided [facility] Attn: Maryellen barros,[address] [facility], [place], [address], [facility] - SI 1 11:58:31 Ex-smoke r 8810580 Active 2016 [facility] Attn: Maryellen barros,[address] [facility], [place], [address], [facility] 2 11:34:39 Rhinitis 76757391 Active 2016 SCOOTER Blanco, [facility] SI 2 10:59:43 Carpal tunnel syndrome 36382536 Active 2016 SCOOTER Blanco, [facility] 2 11:00:53 Problem Notes None recorded. Procedures Surgical History Date Name Laterality Status Provider Name and Address Organization Details Recorded Time 07/01/20 22 Date of Last Mammogram completed Inge Vega RN [facility] 09/30/2022 16:33:45 08/07/20 18 Date of Last Pap Smear completed Kristie Roman [place] - [place] 03/04/2021 11:49:54 08/23/20 17 Digit nerve surgery add-on completed HANSEL Briggs Attn: Accounting,[address] [facility], [place], [address], [facility] - SI 11/01/2017 14:45:12 10/23/19 13 Meniscal trnspl knee w/scpe completed Nicole Duarte [place] - [place] 02/10/2017 11:29:29 10/23/18 96 Tubal Ligation completed Nicole Duarte [place] - [facility] 02/10/2017 11:25:31 10/23/18 52 Tonsillectomy completed Nicole Duarte [place] - [facility] 02/10/2017 11:25:50 Imaging Results None recorded. Procedure Notes None recorded. Medical Equipment None Reported. Allergies No known drug allergies Medications Name Sig Start Date Stop Date Status Note LastModified by Organization Details LastModified Time losartan 50 mg tablet TAKE 1 TABLET BY MOUTH EVERY DAY FOR HIGH BLOOD PRESSURE active Not Available Not Available No t Available cyclobenz aprine 10 mg tablet Take 1 tablet 3 times a day by oral route. 12/25 completed Not Available Not Available Not Available atorvasta tin 40 mg tablet TAKE 1 TABLET BY MOUTH EVERY DAY 09/05 completed myalgia Not Available Not Available Not Available gabapenti n 600 mg tablet TAKE 1 TABLET BY MOUTH THREE TIMES DAILY FOR OSTEOART HRITIS active Not Available Not Available No t Available atorvasta tin 20 mg tablet Take 1 tablet every day by oral route. 09/09 completed Not Available Not Available Not Available albuterol sulfate 2.5 mg/3 mL (0.083 %) solution for nebulizat ion as directed 2024 active Not Available Not Available Not Avai lable pravastat in 40 mg tablet Take 1 tablet every day by oral route. 02/08 completed Not Available Not Available Not Available ibuprofen 800 mg tablet 08/07 completed Not Available Not Available Not Available benzonata te 200 mg capsule Take 1 capsule 3 times a day by oral route. 01/30 completed Not Available Not Available Not Available hydrocodo ne 5 mg-acetam inophen 325 mg tablet 08/07 completed Not Available Not Available Not Available meloxicam 15 mg tablet TAKE 1 TABLET BY MOUTH ONCE DAILY active Not Available Not Available No t Available Medrol (Jose Martin) 4 mg tablets in a dose pack take as directed on package 2024 active Not Available Not Available Not Avai lable prednison e 20 mg tablet Take 4 tabs daily for 3 days; then 3 tabs daily for 3 days; then 2 tabs daily for 3 days; then 1 tab daily for 3 days by oral route. 02/22 completed Not Available Not Available Not Available Zithromax Z-Jose Martin 250 mg tablet TAKE 2 TABLETS (500 MG) BY ORAL ROUTE ONCE DAILY FOR 1 DAY THEN 1 TABLET (250 MG) BY ORAL ROUTE ONCE DAILY FOR 4 DAYS 2024 active Not Available Not Available Not Avai lable amlodipin e 2.5 mg tablet TAKE 1 TABLET BY MOUTH ONCE DAILY 03/18 completed Not Available Not Available Not Available amlodipin e 5 mg tablet TAKE 1 TABLET BY MOUTH EVERY DAY FOR HIGH BLOOD PRESSURE 2024 active Not Available Not Available Not Avai lable aspirin 81 mg tablet,de layed release Take 1 tablet every day by oral route. 01/30 completed Not Available Not Available Not Available ketorolac 30 mg/mL (1 mL) injection solution Inject 1 mL every 6 hours by intramus cular route. 07/27 completed Not Available Not Available Not Available meloxicam 7.5 mg tablet Take 1 tablet twice a day by oral route. 06/30 completed Not Available Not Available Not Available ceftriaxo ne 1 gram solution for injection give IM as directed 02/22 completed Not Available Not Available Not Available magnesium oxide 400 mg (241.3 mg magnesium ) tablet Take 1 tablet every other day by oral route. 02/08 completed started by Cardiolo gist Dr. Mccain given 1 year supply RX Not Available Not Available Not Available benzonata te 100 mg capsule TAKE 1 CAPSULE BY MOUTH THREE TIMES DAILY 09/09 completed Not Available Not Available Not Available gemfibroz il 600 mg tablet TAKE 1 TABLET BY MOUTH TWICE DAILY FOR HIGH TRIGLYCE RIDES active Not Available Not Available No t Available cephalexi n 500 mg capsule Take 1 capsule every 6 hours by oral route for 10 days. 10/31 completed Not Available Not Available Not Available nitrofura ntoin macrocrys jason 100 mg capsule TAKE 1 CAPSULE BY MOUTH EVERY 12 HOURS FOR 7 DAYS 05/01 completed Not Available Not Available Not Available nystatin 100,000 unit/gram topical cream APPLY TO THE AFFECTED AREA(S) BY TOPICAL ROUTE 2 TIMES PER DAY 12/25 completed Not Available Not Available Not Available olopatadi ne 0.1 % eye drops 02/08 completed Not Available Not Available Not Available losartan 25 mg tablet TAKE 1 TABLET BY MOUTH ONCE DAILY 09/09 completed Not Available Not Available Not Available hydrochlo rothiazid e 25 mg tablet TAKE 1 TABLET BY MOUTH EVERY DAY FOR HIGH BLOOD PRESSURE active Not Available Not Available No t Available ergocalci ferol (vitamin D2) 1,250 mcg (50,000 unit) capsule Take 1 capsule by mouth once a week 09/09 completed Not Available Not Available Not Available ibuprofen 600 mg tablet Take 1 tablet 3 times a day by oral route. active Not Available Not Available No t Available albuterol sulfate HFA 90 mcg/actua tion aerosol inhaler Inhale 2 puffs every 4 hours by inhalati on route. 2024 active Not Available Not Available Not Avai lable fluticaso ne propionat e 50 mcg/actua tion nasal spray,marjan pension ADMINIST ER 1 SPRAY INTO EACH NOSTRIL EVERY DAY active Not Available Not Available No t Available amoxicill in 875 mg-potass ium clavulana te 125 mg tablet TAKE 1 TABLET BY MOUTH EVERY 12 HOURS FOR 10 DAYS 03/04 completed Not Available Not Available Not Available ezetimibe 10 mg tablet Take 1 tablet by mouth once daily active Not Available Not Available No t Available Vitamin D3 25 mcg (1,000 unit) tablet Take 1 tablet by oral route. 2020 active Not Available Not Available Not Avai lable Claritin 01/23 completed Not Available Not Available Not Available Zyrtec-D 06/07 completed Not Available Not Available Not Available Allergy Relief (cetirizi ne) 10 mg tablet Take 1 tablet by mouth once daily active Not Available Not Available No t Available Fluarix Quad 0529-1485 (PF) 60 mcg (15 mcg x 4)/0.5 mL IM syringe 08/07 completed Not Available Not Available Not Available Paxlovid 300 mg (150 mg x 2)-100 mg tablets in a dose pack [1 dose PO bid x5 days] 01/30 completed Not Available Not Available Not Available Vitals Date Recorded Body height Body mass index (BMI) Body weight Body temperature Oxygen saturation Oxygen saturation in Arterial blood by Pulse oximetry Heart rate Systolic And Diastolic Provider Name and Address Organization Details Last Updated DateTime 04/03/202 5 167.64 cm 29.7 kg/m2 13681 g 97.7 [degF] 98 % 98 % 82 /min 118/68 mm[Hg] Kristie Roman MA [facility] 5 09:13:30 Date Recorded Body height Provider Name an d Address Organization Details Last Updated DateTime 01/27/2025 167.64 cm Kristie graves MA [facility] 01/27/2025 10:43:12 Date Recorded Oxygen saturation Oxygen saturation in Arterial blood by Pulse oximetry Oxygen saturation Oxygen saturation in Arterial blood by Pulse oximetry Inhaled oxygen flow rate Heart rate Systolic And Diastolic Provider Name and Address Organization Details Last Updated DateTime 5 97 % 97 % 98 % 98 % 4 L/min 88 /min 92/60 mm[Hg] Inge Vega RN [facility] 5 13:15:51 Date Recorded Body height Body mass index (BMI) Body weight Body temperature Oxygen saturation Oxygen saturation in Arterial blood by Pulse oximetry Heart rate Systolic And Diastolic Provider Name and Address Organization Details Last Updated DateTime 5 167.64 cm 29.3 kg/m2 43693.0 2 g 98.1 [degF] 93 % 93 % 82 /min 93/63 mm[Hg] Kristie Roman MA [facility] 5 09:57:08 Date Recorded Body height Body mass index (BMI) Body weight Body temperature Oxygen saturation Oxygen saturation in Arterial blood by Pulse oximetry Heart rate Systolic And Diastolic Provider Name and Address Organization Details Last Updated DateTime 4 167.64 cm 30.1 kg/m2 32617.2 8 g 98 [degF] 98 % 98 % 70 /min 102/70 mm[Hg] Nicole mathur MA [facility] 4 10:07:25 Date Recorded Body height Body mass index (BMI) Body weight Body temperature Heart rate Oxygen saturation Oxygen saturation in Arterial blood by Pulse oximetry Systolic And Diastolic Provider Name and Address Organization Details Last Updated DateTime 4 167.64 cm 30.3 kg/m2 29317.5 7 g 97.7 [degF] 66 /min 97 % 97 % 130/82 mm[Hg] Kristie Roman [place] - [facility] 10:06:38 Social History Question Answer Notes LastModified by Organizat ion Details LastModified Time Tobacco Smoking Status Former Smoker since 2012 Nicole collins [place] - [place] 02/10/2017 11:21:37 Do You Have An Advance Directive? No Information not available 02/08/2021 Are You Blind Or Do You Have Difficulty Seeing? No Information not available 02/08/2021 What Is Your Level Of Caffeine Consumption? Moderate Information not available 02/10/2017 How Much Tobacco Do You Chew? None Information not available 02/10/2017 In The 14 Days Before Symptom Onset, Have You Had Close Contact With A Laboratory-confir med COVID-19 While That Case Was Ill? No Information not available 01/30/2024 In The 14 Days Before Symptom Onset, Have You Had Close Contact With A Person Who Is Under Investigation For COVID-19 While That Person Was Ill? No Information not available 01/30/2024 Have You Been To An Area Known To Be High Risk For COVID-19? No Information not available 06/07/2021 Are You Deaf Or Do You Have Serious Difficulty Hearing? No Information not available 02/08/2021 What Type Of Diet Are You Following? REGULAR Information not available 02/10/2017 Education 2 Year College Information not available 02/10/2017 Are There Any Guns Present In Your Home? No Information not available 02/10/2017 Hard Of Hearing Or Deaf In One Or Both Ears? No Information not available 02/10/2017 Legally Blind In One Or Both Eyes? No Information no t available 02/10/2017 Marital Status Single Informat ion not available 02/10/2017 What Was The Date Of Your Most Recent Tobacco Screening? 05/01/2025 Information not available 05/01/2025 Performs Monthly Self-breast Exam? Yes Information no t available 02/10/2017 Do You Use Your Seat Belt Or Car Seat Routinely? Yes Information not available 02/08/2021 Seat Belts Used Routinely Yes Information not available 02/10/2017 Smoke Alarm In Home Yes Information not available 02/10/2017 Do You Have Smoke And Carbon Monoxide Detectors In Your Home? Yes Information not available 02/08/2021 Are You Passively Exposed To Smoke? No Information no t available 02/08/2021 How Much Tobacco Do You Smoke? 1 PPD Information not available 02/10/2017 General Stress Level Medium Information not available 02/10/2017 Do You Use Sunscreen Routinely? No Information not available 02/10/2017 Has Tobacco Cessation Counseling Been Provided? No Information not available 01/30/2024 How Many Years Have You Smoked Tobacco? 17 Information not available 02/10/2017 Sex: Female Functional Status Question Answer Note LastModified by Organizat ion Details LastModified Time Do you use any illicit or recreational drugs? No Information not available 12/10/2021 Do you or have you ever used any other forms of tobacco or nicotine? No Information not available 01/30/2024 What is your level of alcohol consumption? Moderate Information not available 02/10/2017 Are you currently employed? Yes Information not available 03/04/2021 Are you able to care for yourself? Yes Information n ot available 02/08/2021 What is your occupation? [email or web address] Information not available 02/10/2017 What is your exercise level? None Information not available 03/04/2021 Mental Status Question Answer Note LastModified by Organization D etails LastModified Time Do you feel stressed (tense, restless, nervous, or anxious, or unable to sleep at night)? [id number] Information not available 10/31/2023 Family History Relationship Description Onset Age of this Age Resolved Age Notes LastModified by Organization Details LastModified Time Mother Diabetes mellitus Not available 11:20:21 Mother Heart disease 89 [email or web address] Not available 2022 10:53:18 Father Blood coagulation disorder Not available 11:20:40 Brother Sepsis 67 67 [email or web address] Not available 10:25:24 Brother Malignant neoplasm of rectum 67 [email or web address] Not available 2018 10:25:41 Medical History Condition Response Skin Problems Y Muscle, Joint, or Bone Problems Y Other Y High Blood Pressure Y High Cholesterol Y Depression Y Allergies Y Gynecological History Statement/Question Response If Post Menopausal, Age at Menopause 38 Date of Last Pap Smear 08/07/2018 Current Control Method Tubal Ligat ion Date of Last Mammogram 07/01/2022 Date of LMP 10/23/2004 Obstetrics History GPAL:G 3 P 0 0 2 1 Type Value Spontaneous 2 Living 1 Total 3 Immunizations Vaccine Type Date Status Note Provider Name and Address Organization Details Recorded Time Influenza, split virus, quadrivalent, preservative 07/11/20 19 completed [place] - [facility] 02/08/2021 10:34:14 SARS-COV-2 (COVID-19) vaccine, UNSPECIFIED 11/30/19 21 [place] - [facility] 02/08/2021 10:34:14 SARS-COV-2 (COVID-19) vaccine, UNSPECIFIED 12/29/19 21 [place] [facility] 02/08/2021 10:34:14 Tdap 02/23/20 17 completed Not Available [facility] 11/09/2019 02:40:22 Influenza, split virus, trivalent, preservative 07/10/20 14 completed Not Available [facility] 05/01/2025 09:48:56 Influenza, split virus, quadrivalent, preservative 06/30/20 17 completed Not Available [facility] 11/09/2019 02:33:57 Influenza, split virus, quadrivalent, preservative 09/09/20 21 completed [place] [facility] 09/09/2021 17:14:42 Influenza, high-dose, quadrivalent, PF 10/31/19 24 completed RUPERT Briggs Attn: Accounting,[address] [place], [address], [facility] - [facility] 10/31/2023 14:11:20 Pneumococcal conjugate PCV20, polysaccharide [id number] conjugate, adjuvant, PF 10/31/19 24 cancelled product out of stock Inge Vega RN null, [place] - [facility] 12/20/2023 16:45:50 Influenza, high-dose, trivalent, PF 09/05/20 24 completed Kristie Roman MA null, [facility] 09/05/2024 11:04:12 Pneumococcal conjugate PCV20, polysaccharide [id number] conjugate, adjuvant, PF 01/24/20 25 completed MARIA C ESCALANTE PA-C Attn: Accounting,[address], [place], [address], [facility] - [facility] 01/23/2025 12:34:38 Influenza, split virus, quadrivalent, PF 07/11/20 18 completed Kristie Roman MA null, [facility] 02/08/2021 10:34:14 Past Encounters Encounter ID Performer Location Encounter Start Date Encounter Closed Date Diagnosis/Indication Diagnosis SNOMED-CT Code Diagnosis ICD10 Code Diagnosis Note [id number] Nasim Blakely MD [facility] [address] [address] 02/10/2017 10:58:54 02/13/2017 16:08:39 Acute frontal sinusitis 38090500 J01.10 increase fluids take all your medication as directed Acute bila teral otitis media 522767983 H66.93 Acute bronchitis 2481203 2 J20.9 [id number] Cornelius Cota [facility] [address] [place] [address] 02/22/2017 14:30:54 03/09/2017 09:54:19 Adult health examination 190681717 Z00.00 Acute fron jason sinusitis 55172335 J01.10 increase fluids take all your medication as directed Bilateral carpal tunnel syndrome 0395649015 7712426 G56.03 use wrist splint as directed Screening for malignant neoplasm of breast 285904896 Z12.31 Increased blood pressure 98716536 R03.0 recheck b/p with RN in 1 month avoid salt increase fluids exercise Ex-cigarette smoker 4583 76235 Z87.891 Rhinitis 20279042 J00 may continue ZYrtec daily History of polyp of colon 715541067 Z86.010 obtain previous colonoscop y results [id number] Nasim Blakely MD [facility] [address] [place] [address] 06/30/2017 12:10:43 07/13/2017 18:11:54 Essential hypertension 33730303 I10 Hyperlipidemia 74366736 E78.2 Supraventr icular bigeminy 899355879 I45.89 Ex-smoker 3649852 Z87.89 1 Rhinitis 98769435 J00 may continue ZYrtec daily Carpal mira pippa syndrome 27960469 G56.03 Left atria l enlargement 2223624427 9109 I51.7 Contractur e of joint of finger 047211597 M24.549 right hand index finger contractur e for over 20 years keep appointmen t with Dr. Vaughan hand specialist at [facility] Administra tion of influenza vaccine 55162783 Z23 [id number] Nasim Blakely MD [facility] [address] [address] 10/31/2017 15:44:27 11/08/2017 09:27:43 Hyperlipidemia 61073993 E78.2 continue present meds--has refills for 1 year Essential hypertension 81250446 I10 continue present meds--has refills for 1 year Supraventr icular bigeminy 964648270 I45.89 Ex-smoker 0885526 Z87.89 1 Dyspnea on exertion 6084 5006 R06.09 Had ECHO normal systolic function; abnormal diastolic function Dupuytren' s contracture of finger 528215985 M72.0 see ortho for follow up after surgery [id number] Nasim Blakely MD [facility] [address] [address] 06/27/2018 10:31:38 06/29/2018 12:36:27 Essential hypertension 98855084 I10 continue present meds--has refills for 1 year encouraged continued weight loss--has lost 9 pounds since last visit 04/12/2018 BMP Na 143 K+ 4.4 CL 107 CO2 26 Glucose 100 BUN 14 Cr 0.57 Mag 2.2 Hyperlipidemia 33798805 E78.2 continue present meds--has refills for 1 year will try to get lab results done 03/2018 from cardiology if not available will need labs drawn here 04/12/2018 cho 182 tr 77 HDL 71 LDL94 Rhinitis 13737240 J00 may try OTC antihistam ine Screening for malignant neoplasm of breast 474455024 Z12.31 needs pap and CBE will check on Dexa Scan [id number] Nasim Blakely MD [facility] [address] 4 07/27/2018 14:49:22 08/02/2018 17:08:07 Backache 959130995 M54.9 [id number] Rudi Jaeger MD [facility] [address] [address] 4 08/07/2018 12:06:14 08/16/2018 17:32:29 Gynecologic examination 83897341 Z01.411 Calcium Rich foods handout Vitamin D daily SBE teaching/ handout Had normal mammo 06/2018 Postmenopausal state 764 47130 Z78.0 Submammary intertrigo 24 1724541 L30.4 [id number] Nasim Blakely MD [facility] [address] [address] 4 12/25/2018 09:54:38 12/26/2018 16:17:27 Essential hypertension 76182661 I10 continue present meds--has refills till 03/[address] will have f/u with cardiology 03/2019 encouraged continued weight loss--has lost 2 pounds since last visit 04/12/2018 BMP Na 143 K+ 4.4 CL 107 CO2 26 Glucose 100 BUN 14 Cr 0.57 Mag 2.2 Hyperlipidemia 31136519 E78.2 continue present meds--has refills for 1 year 04/12/2018 cho 182 tr 77 HDL 71 LDL94 Rhinitis 52698638 J00 may try OTC antihistam ine Screening for osteoporosis 203984803 Z13.820 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 [id number] Nasim Blakely MD [facility] [address] [place] [address] 03/22/2019 09:47:07 03/22/2019 17:29:36 Essential hypertension 47492974 I10 Screening for osteoporosis 797387638 Z13.664 [id number] Nasim Blakely MD [facility] [address] [place] [address] 02/08/2021 10:27:50 02/09/2021 15:13:24 Acute sinusitis 57689301 J01.90 [id number] Nasim Blakely MD [facility] [address] [place] [address] 03/04/2021 11:29:55 03/05/2021 16:50:15 Essential hypertension 54869792 I10 Hyperlipidemia 56168528 E78.2 04/12/2018 cho 182 tr 77 HDL 71 LDL94 Body mass index 25-29 - overweight 402759803 Z68.27 BMI 28.7 Vitamin D deficiency 347 82676 E55.9 Acute sinusitis 39659510 J01.90 Noncomplia nce with medication regimen 628132579 Z91.14 60 y/o WF to re-establi sh care for her chronic problems after off medication s for 2 years. She denies any CP, SOB, syncope, pre-syncop e or edema. [id number] Nasim Blakely MD [facility] [address] [address] 03/08/2021 10:16:32 03/09/2021 17:46:23 Mixed hyperlipidemia 310032816 E78.2 Vitamin D deficiency 347 31149 E55.9 [id number] Nasim Blakely MD [facility] [address] [address] 06/07/2021 16:15:12 06/08/2021 09:21:50 Essential hypertension 70694735 I10 b/p 140/86 at homeincrea se cozaar 25mg daily to 50mg daily Body mass index 25-29 - overweight 618572933 Z68.27 BMI 28.7 Vitamin D deficiency 347 62540 E55.9 Vitamin D 16.5Start Rx Vitamin D2 76162 IU once weekly for 12 weeksonce you complete RX buy otc vitamin D3 1000 IU once daily Noncomplia nce with medication regimen 554106243 Z91.14 60 y/o WF to re-establi care for her chronic problems after off medication s for 2 years. She denies any CP, SOB, syncope, pre-syncop e or edema. Dyspnea on exertion 6084 5006 R06.09 Had ECHO normal systolic function; abnormal diastolic functionNe eds stress testNeeds a current EKG and CXRWill need a new referral to see cardiologi st Dr Qasim Mccain Supraventr icular bigeminy 078129616 I45.89 Mixed hyperlipidemia 267 519901 E78.2 03/08/2021 cho 230 Trig 73 HDL 103 LDL 118 Avoid all breads, potatoes, cereal, pasta, rice, margarine, refined sugars, milk yogurt, ice cream, juices, soda (including diet), beer, and manmade or manufactur ed desserts. Enjoy steak, fish, chicken (no skin), pork, butter, vegetables , beans, nuts, whole eggs, cheese (low fat or skim), cream in your coffee. [id number] Nasim Blakely MD [facility] [address] [address] 09/09/2021 15:58:55 09/13/2021 06:15:18 Mixed hyperlipidemia 665062568 E78.2 03/08/2021 cho 230 Trig 73 HDL 103 LDL 118 Avoid all breads, potatoes, cereal, pasta, rice, margarine, refined sugars, milk yogurt, ice cream, juices, soda (including diet), beer, and manmade or manufactur ed desserts. Enjoy steak, fish, chicken (no skin), pork, butter, vegetables , beans, nuts, whole eggs, cheese (low fat or skim), cream in your coffee. Essential hypertension 94072201 I10 b/p 140/86 at homecontin ue cozaar 50mg daily Dyspnea on exertion 6084 5006 R06.09 Had ECHO normal systolic function; abnormal diastolic functionNe eds stress testHas current EKG and CXR nowWill need a new referral to see cardiologi Body mass index 25-29 - overweight 299047677 Z68.27 BMI 28.7 Vitamin D deficiency 347 12674 E55.9 Vitamin D 16.5Start Rx Vitamin D2 80145 IU once weekly for 12 weeksonce you complete RX buy otc vitamin D3 1000 IU once daily Noncomplia nce with medication regimen 764261473 Z91.14 60 y/o WF to re-[facility] care for her chronic problems after off medication s for 2 years. She denies any CP, SOB, syncope, pre-syncop e or edema. EKG: Incom plete right bundle branch block 862034435 I45.10 09/02/2021 EKG shows abnormalit yHad ECHO normal systolic function; abnormal diastolic function on 09/21/2017 Grade 1 diastolic dysfunctio n/mild tricuspid regurgitat ion Administra tion of influenza vaccine 23509251 Z23 Depression screening 171 822293 Z13.31 negative-- [id number] Nasim Blakely MD [facility] [address] [address] 10/01/2021 09:43:35 10/04/2021 07:01:50 Vitamin D deficiency 17232019 E55.9 Vitamin D 16.5Start Rx Vitamin D2 78717 IU once weekly for 12 weeksonce you complete RX buy otc vitamin D3 1000 IU once daily [id number] Nasim Blakely MD [facility] [address] [address] 12/10/2021 11:23:59 12/13/2021 06:44:27 Essential hypertension 00180032 I10 b/p 130/86 at homecontin ue cozaar 50mg dailywill increase amlodipine 2.5mg to 5mg daily Mixed hyperlipidemia 267 332150 E78.2 03/08/2021 cho 230 Trig 73 HDL 103 LDL 118 Avoid all breads, potatoes, cereal, pasta, rice, margarine, refined sugars, milk yogurt, ice cream, juices, soda (including diet), beer, and manmade or manufactur ed desserts. Enjoy steak, fish, chicken (no skin), pork, butter, vegetables , beans, nuts, whole eggs, cheese (low fat or skim), cream in your coffee. EKG: Incom plete right bundle branch block 189140207 I45.10 09/02/2021 EKG shows abnormalit yHad ECHO normal systolic function; abnormal diastolic function on 09/21/2017 Grade 1 diastolic dysfunctio n/mild tricuspid regurgitat ion Dyspnea on exertion 6084 5006 R06.09 Had ECHO normal systolic function; abnormal diastolic functionNe eds stress testHas current EKG and CXR nowWill need a new referral to see cardiologi st--has appointmen t pending Body mass index 25-29 - overweight 678403744 Z68.27 BMI 28.7 Vitamin D deficiency 347 50657 E55.9 Vitamin D 16.5Start Rx Vitamin D2 91494 IU once weekly for 12 weeksonce you complete RX buy otc vitamin D3 1000 IU once daily Noncomplia nce with medication regimen 795653293 Z91.14 60 y/o WF to re-establi care for her chronic problems after off medication s for 2 years. She denies any CP, SOB, syncope, pre-syncop e or edema. Depression screening 171 646199 Z13.31 negative-- [id number] Nasim Blakely MD [facility] [address] [place] [address] 03/18/2022 10:49:09 03/22/2022 13:53:32 Mixed hyperlipidemia 540796614 E78.2 03/08/2021 cho 230 Trig 73 HDL 103 LDL 118cant tolerate ZetiaAvoid all breads, potatoes, cereal, pasta, rice, margarine, refined sugars, milk yogurt, ice cream, juices, soda (including diet), beer, and manmade or manufactur ed desserts. Enjoy steak, fish, chicken (no skin), pork, butter, vegetables , beans, nuts, whole eggs, cheese (low fat or skim), cream in your coffee. Essential hypertension 01006818 I10 BP Goal: Less than 150/90BP Controlled : yes; per the JNC8 guidelines in the absence of renal disease and DMHealthy Weight: 5'6= 118-154 lbsDiscuss ed: Low sodium balanced diet, moderate exercise at least 3-4 times per week for an average of 40 minutesNex t Visit: 3month(s)w ill continue cozaar 50mg dailywill ncontinue amlodipine 5mg daily Rhinitis 75067452 J00 may try OTC antihistam ine EKG: Incom plete right bundle branch block 335534004 I45.10 09/02/2021 EKG shows abnormalit yHad ECHO normal systolic function; abnormal diastolic function on 09/21/2017 Grade 1 diastolic dysfunctio n/mild tricuspid regurgitat ionHas now seen new cards Dr. Joce Cardona has follow up in 1 month Dyspnea on exertion 6084 5006 R06.09 Had ECHO normal systolic function; abnormal diastolic functionNe eds stress testHas current EKG and CXR nowWill need a new referral to see cardiologi st--has appointmen t pending Body mass index 25-29 - overweight 288075899 Z68.27 BMI 29Healthy Weight: 5'6= 118-154 lbs Vitamin D deficiency 347 73549 E55.9 Vitamin D 16.5Start Rx Vitamin D2 81846 IU once weekly for 12 weeksonce you complete RX buy otc vitamin D3 1000 IU once daily Depression screening 171 641870 Z13.31 negative-- Osteoarthritis 296995238 M19.90 Screening mammography of bilateral breasts 2976606205 16008 Z12.31 [id number] Nasim Blakely MD [facility] [address] [place] [address] 06/20/2022 09:58:12 06/21/2022 12:56:10 Essential hypertension 21092349 I10 BP Goal: Less than 150/90BP Controlled : yes; per the JNC8 guidelines in the absence of renal disease and DMHealthy Weight: 5'6= 118-154 lbsDiscuss ed: Low sodium balanced diet, moderate exercise at least 3-4 times per week for an average of 40 minutesNex t Visit: 3month(s)w ill continue cozaar 50mg dailywill ncontinue amlodipine 5mg daily Mixed hyperlipidemia 267 181321 E78.2 03/08/2021 cho 230 Trig 73 HDL 103 LDL 118 cho 190; trig 102; HDL 61; LDL 74 on 04/11/2022 from cardiologi stcant tolerate ZetiaAvoid all breads, potatoes, cereal, pasta, rice, margarine, refined sugars, milk yogurt, ice cream, juices, soda (including diet), beer, and manmade or manufactur ed desserts. Enjoy steak, fish, chicken (no skin), pork, butter, vegetables , beans, nuts, whole eggs, cheese (low fat or skim), cream in your coffee. Rhinitis 30633663 J00 may try OTC antihistam ine EKG: Incom plete right bundle branch block 164735183 I45.10 09/02/2021 EKG shows abnormalit yHad ECHO normal systolic function; abnormal diastolic function on 09/21/2017 Grade 1 diastolic dysfunctio n/mild tricuspid regurgitat ionHas now seen new cards Dr. Joce Cardona has follow up 11/2022 Dyspnea on exertion 6084 5006 R06.09 Had ECHO normal systolic function; abnormal diastolic functionNe eds stress testHas current EKG and CXR nowSaw cardiologi kept on the same meds-has f/u 11/2022 Body mass index 25-29 - overweight 453624870 Z68.27 BMI 29Healthy Weight: 5'6= 118-154 lbs Vitamin D deficiency 347 20571 E55.9 Vitamin D 16.5otc vitamin D3 1000 IU once daily Depression screening 171 Z13.31 negative-- Osteoarthritis 569840608 M19.90 [id number] Landry Luciano MD [facility] [address] [address] 09/30/2022 16:04:58 10/03/2022 13:46:03 Discharge from breast 329168576 N64.52 fell on chest 2 weeks agofor last week L nipple discharge upon squeezing of L nippleextr rabia tenderness of l breastshe feels a bulge Injury of left breast 11 12299591 8707882 S29.9XXA Depression screening 171 823664 Z13.31 negative-- Mental hea lth screening 916074773 Z13.39 negative [id number] Nasim Blakely MD [facility] [address] [address] 10/31/2022 11:48:25 11/01/2022 10:54:45 Essential hypertension 74618790 I10 BP Goal: Less than 150/90BP Controlled : yes; per the JNC8 guidelines in the absence of renal disease and DMHealthy Weight: 5'6= 118-154 lbsDiscuss ed: Low sodium balanced diet, moderate exercise at least 3-4 times per week for an average of 40 minutesNex t Visit: 3month(s)w ill continue cozaar 50mg dailywill continue amlodipine 5mg daily Mixed hyperlipidemia 267 911502 E78.2 03/08/2021 cho 230 Trig 73 HDL 103 LDL 118 cho 190; trig 102; HDL 61; LDL 74 on 04/11/2022 from cardiologi stcant tolerate ZetiaAvoid all breads, potatoes, cereal, pasta, rice, margarine, refined sugars, milk yogurt, ice cream, juices, soda (including diet), beer, and manmade or manufactur ed desserts. Enjoy steak, fish, chicken (no skin), pork, butter, vegetables , beans, nuts, whole eggs, cheese (low fat or skim), cream in your coffee. Rhinitis 36913892 J00 may try OTC antihistam ine EKG: Incom plete right bundle branch block 339833634 I45.10 09/02/2021 EKG shows abnormalit yHad ECHO normal systolic function; abnormal diastolic function on 09/21/2017 Grade 1 diastolic dysfunctio n/mild tricuspid regurgitat ionHas now seen new cards Dr. Joce Cardona has follow up 11/2022 Dyspnea on exertion 6084 5006 R06.09 Had ECHO normal systolic function; abnormal diastolic functionNe eds stress testHas current EKG and CXR nowSaw cardiologi st kept on the same meds-has f/u 11/2022 Body mass index 25-29 - overweight 768866642 Z68.27 BMI 29Healthy Weight: 5'6= 118-154 lbs Osteoarthritis 649139848 M19.90 Vitamin D deficiency 347 00141 E55.9 Vitamin D 16.5otc vitamin D3 1000 IU once daily Depression screening 171 964581 Z13.31 PHQ2-9 negative-- Mental hea lth screening 080792826 Z13.39 JANICE-7 negative Discharge from breast 27 8833266 N64.52 RESOLVEDfe ll on chestfor last week L nipple discharge upon squeezing of L nippleextr rabia tenderness of l breastshe feels a bulgeu/s of breast normal limits Injury of left breast 11 91108923 0677920 S29.9XXA Better [id number] Nasim Blakely MD [facility] [address] [address] 11/30/2022 12:56:34 12/01/2022 14:20:59 Overweight 485241760 E66.3 COVID-19 305129332 U07.1 Depression screening 171 100427 Z13.31 PHQ2-9 negative-- Mental hea [facility] screening 978707829 Z13.39 JANICE-7 negative [id number] Nasim Blakely MD [facility] [address] [address] 01/24/2023 09:43:43 02/21/2023 16:10:31 Essential hypertension 06508880 I10 BP Goal: Less than 150/90BP Controlled : yes; per the JNC8 guidelines in the absence of renal disease and DMHealthy Weight: 5'6= 118-154 lbsDiscuss ed: Low sodium balanced diet, moderate exercise at least 3-4 times per week for an average of 40 minutesNex t Visit: 3month(s)w ill continue cozaar 50mg dailywill continue amlodipine 5mg daily [id number] Nasim Blakely MD [facility] [address] [place] [address] 01/26/2023 11:28:51 02/21/2023 16:19:22 Hypercalcemia 02751786 E83.52 [id number] aNsim Blakely MD [facility] [address] [place] [address] 01/30/2023 10:30:51 01/31/2023 15:12:33 Mixed hyperlipidemia 938866970 E78.2 03/08/2021 cho 230 Trig 73 HDL 103 LDL 118 on 04/11/2022 cho 190; trig 102; HDL 61; LDL 74 from cardiologi stcant tolerate ZetiaAvoid all breads, potatoes, cereal, pasta, rice, margarine, refined sugars, milk yogurt, ice cream, juices, soda (including diet), beer, and manmade or manufactur ed desserts. Enjoy steak, fish, chicken (no skin), pork, butter, vegetables , beans, nuts, whole eggs, cheese (low fat or skim), cream in your coffee. Essential hypertension 71240123 I10 BP Goal: Less than 150/90BP Controlled : yes; per the JNC8 guidelines in the absence of renal disease and DMHealthy Weight: 5'6= 118-154 lbsDiscuss ed: Low sodium balanced diet, moderate exercise at least 3-4 times per week for an average of 40 minutesNex t Visit: 3month(s)w ill continue cozaar 50mg dailywill continue amlodipine 5mg daily Body mass index 25-29 - overweight 835121662 Z68.27 BMI 29.3Health y Weight: 5'6= 118-154 lbs Overweight 561543052 E66 .3 BMI 29.3Health y Weight: 5'6= 118-154 lbs Rhinitis 08723793 J00 may try OTC antihistam ine Dyspnea on exertion 6084 5006 R06.09 Had ECHO normal systolic function; abnormal diastolic functionNe eds stress testHas current EKG and CXR nowSaw cardiologi st kept on the same meds-has f/u 11/2022 Osteoarthritis 332461787 M19.90 Vitamin D deficiency 347 73361 E55.9 Vitamin D 60otc vitamin D3 1000 IU once daily Depression screening 171 316608 Z13.31 PHQ2-9 negative-- Mental hea lth screening 666883454 Z13.39 JANICE-7 negative [id number] MALLIKA VILLAGOMEZ [facility] [address] [place] [address] 04/17/2023 11:52:58 04/18/2023 09:16:51 Overweight 971983322 E66.3 29.1 Allergic rhinitis 800255 04 J30.9 - has flonase- start zyretec Air trapping 00818806 J9 8.8 air trapping in lungsno hx of copd1 ppd > 30 years per patientqui t 2012needs LDCT [id number] Nasim Blakely MD [facility] [address] [place] [address] 06/30/2023 10:14:08 07/03/2023 10:48:15 Essential hypertension 67456963 I10 BP Goal: Less than 140/90BP Controlled : yes; per the JNC8 guidelines in the absence of renal disease and DMHealthy Weight: 5'6= 118-154 lbsDiscuss ed: Low sodium balanced diet, moderate exercise at least 3-4 times per week for an average of 40 minutesNex t Visit: 3month(s)w ill continue cozaar 50mg dailywill continue amlodipine 5mg dailyconti nue hydrochlor othiazide 25mg qd Mixed hyperlipidemia 267 873489 E78.2 03/08/2021 cho 230 Trig 73 HDL 103 LDL 118 on 04/11/2022 cho 190; trig 102; HDL 61; LDL [address]01/25/20 23cho 201trig 107HDL 105LDL 78cant tolerate ZetiaAvoid all breads, potatoes, cereal, pasta, rice, margarine, refined sugars, milk yogurt, ice cream, juices, soda (including diet), beer, and manmade or manufactur ed desserts. Enjoy steak, fish, chicken (no skin), pork, butter, vegetables , beans, nuts, whole eggs, cheese (low fat or skim), cream in your coffee. Body mass index 25-29 - overweight 139726719 Z68.27 BMI 29.3Health y Weight: 5'6= 118-154 lbs Overweight 192135651 E66 .3 BMI 29.3Health y Weight: 5'6= 118-154 lbs Rhinitis 63098199 J00 may try OTC antihistam ine Dyspnea on exertion 6084 5006 R06.09 Had ECHO normal systolic function; abnormal diastolic functionNe eds stress testHas current EKG and CXR nowSaw cardiologi kept on the same meds-had f/u 01/20/2023 is due f/u 07/2023. However, will need a new referral and a new cards as current is out of network. Osteoarthritis 151253851 M19.90 Vitamin D deficiency 347 39643 E55.9 Vitamin D 60otc vitamin D3 1000 IU once daily Depression screening 171 Z13.31 PHQ2-9 negative-- Mental hea lth screening 177267483 Z13.39 JANICE-7 negative [id number] Nasim Blakely MD [facility] [address] [place] [address] 10/31/2023 10:00:07 11/02/2023 15:04:35 Essential hypertension 85403817 I10 BP Goal: Less than 140/90BP Controlled : yes; per the JNC8 guidelines in the absence of renal disease and DMHealthy Weight: 5'6= 118-154 lbsDiscuss ed: Low sodium balanced diet, moderate exercise at least 3-4 times per week for an average of 40 minutesNex t Visit: 3month(s)w ill continue cozaar 50mg dailywill continue amlodipine 5mg dailyconti nue hydrochlor othiazide 25mg qd Mixed hyperlipidemia 267 828806 E78.2 03/08/2021 cho 230 Trig 73 HDL 103 LDL 118 on 04/11/2022 cho 190; trig 102; HDL 61; LDL [address]01/25/20 23cho 201trig 107HDL 105LDL 78cant tolerate ZetiaAvoid all breads, potatoes, cereal, pasta, rice, margarine, refined sugars, milk yogurt, ice cream, juices, soda (including diet), beer, and manmade or manufactur ed desserts. Enjoy steak, fish, chicken (no skin), pork, butter, vegetables , beans, nuts, whole eggs, cheese (low fat or skim), cream in your coffee. Rhinitis 53177374 J00 may try OTC antihistam ine Dyspnea on exertion 6084 5006 R06.09 Had ECHO normal systolic function; abnormal diastolic functionNe eds stress testHas current EKG and CXR nowSaw cardiologi kept on the same meds-had f/u 01/20/2023 is due f/u 07/2023. However, will need a new referral and a new cards as current is out of network. Osteoarthritis 374285831 M19.90 Vitamin D deficiency 347 95862 E55.9 Vitamin D 60otc vitamin D3 1000 IU once daily Depression screening 171 Z13.31 PHQ2-9 negative-- Mental [facility] screening 971177268 Z13.39 JANICE-7 negative Obesity 423342749 E66.9 BMI 31 Screening for malignant neoplasm of colon 582002500 Z12.11 63 y/o WF needs colonoscop yHistory of colon polyp Screening for malignant neoplasm of breast 496256568 Z12.31 needs pap and CBE Screening for osteoporosis 116582261 Z13.820 Administra tion of influenza vaccine 90165648 Z23 Administra tion of pneumococcal vaccine 77337460 Z23 according to CDC no additional doses of pneumonia vaccine needed [id number] Nasim Blakely MD [facility] [address] [place] [address] 01/23/2024 09:35:50 01/30/2024 16:01:59 Essential hypertension 39486350 I10 BP Goal: Less than 140/90BP Controlled : yes; per the JNC8 guidelines in the absence of renal disease and DMHealthy Weight: 5'6= 118-154 lbsDiscuss ed: Low sodium balanced diet, moderate exercise at least 3-4 times per week for an average of 40 minutesNex t Visit: 3month(s)w ill continue cozaar 50mg dailywill continue amlodipine 5mg dailyconti nue hydrochlor othiazide 25mg qd Mixed hyperlipidemia 267 559840 E78.2 03/08/2021 cho 230 Trig 73 HDL 103 LDL 118 on 04/11/2022 cho 190; trig 102; HDL 61; LDL [address]01/25/20 23cho 201trig 107HDL 105LDL 78cant tolerate ZetiaAvoid all breads, potatoes, cereal, pasta, rice, margarine, refined sugars, milk yogurt, ice cream, juices, soda (including diet), beer, and manmade or manufactur ed desserts. Enjoy steak, fish, chicken (no skin), pork, butter, vegetables , beans, nuts, whole eggs, cheese (low fat or skim), cream in your coffee. [id number] Nasim Blakely MD [facility] [address] [place] [address] 01/30/2024 09:53:34 02/02/2024 11:48:20 Mixed hyperlipidemia 242682412 E78.2 03/08/2021 cho 230 Trig 73 HDL 103 LDL 118 on 04/11/2022 cho 190; trig 102; HDL 61; LDL [address]01/25/20 23cho 201trig 107HDL 105LDL 78 01/23/2024 cho 261trig 100HDL 105LDL 139cant tolerate Zetia, Atorvastat inAvoid all breads, potatoes, cereal, pasta, rice, margarine, refined sugars, milk yogurt, ice cream, juices, soda (including diet), beer, and manmade or manufactur ed desserts. Enjoy steak, fish, chicken (no skin), pork, butter, vegetables , beans, nuts, whole eggs, cheese (low fat or skim), cream in your coffee. will trial gemfibrozi l Essential hypertension 56274249 I10 BP Goal: Less than 140/90BP Controlled : yes; per the JNC8 guidelines in the absence of renal disease and DMHealthy Weight: 5'6= 118-154 lbsDiscuss ed: Low sodium balanced diet, moderate exercise at least 3-4 times per week for an average of 40 minutesNex t Visit: 3month(s)w ill continue cozaar 50mg dailywill continue amlodipine 5mg dailyconti nue hydrochlor othiazide 25mg qd Vitamin D deficiency 347 81669 E55.9 Vitamin D 60otc vitamin D3 1000 IU once daily Rhinitis 72674903 J00 may try OTC antihistam ine Dyspnea on exertion 6084 5006 R06.09 Had ECHO normal systolic function; abnormal diastolic functionNe eds stress testHas [facility]had f/u 01/20/2023 is due f/u 07/2023. However, will need a new referral and a new cards as current is out of network. Osteoarthritis 919010843 M19.90 Depression screening 171 573814 Z13.31 PHQ2-9 negative-- Mental [facility] screening 112086412 Z13.39 JANICE-7 negative Obesity 790471049 E66.9 BMI 30.3 Abnormal l iver function 78889841 K76.89 stop alcohol consumptio nno tylenol [id number] Nasim Blakely MD [facility] [address] [place] [address] 05/31/2024 10:02:27 06/14/2024 11:15:27 Essential hypertension 02082731 I10 BP Goal: Less than 140/90BP Controlled : yes; per the JNC8 guidelines in the absence of renal disease and DMHealthy Weight: 5'6= 118-154 lbsDiscuss ed: Low sodium balanced diet, moderate exercise at least 3-4 times per week for an average of 40 minutesNex t Visit: 3month(s)w ill continue cozaar 50mg dailywill continue amlodipine 5mg dailyconti nue hydrochlor othiazide 25mg qd Mixed hyperlipidemia 267 381165 E78.2 03/08/2021 cho 230 Trig 73 HDL 103 LDL 118 on 04/11/2022 cho 190; trig 102; HDL 61; LDL [address]01/25/20 23cho 201trig 107HDL 105LDL 78 01/23/2024 cho 261trig 100HDL 105LDL 139cant tolerate Zetia, Atorvastat inAvoid all breads, potatoes, cereal, pasta, rice, margarine, refined sugars, milk yogurt, ice cream, juices, soda (including diet), beer, and manmade or manufactur ed desserts. Enjoy steak, fish, chicken (no skin), pork, butter, vegetables , beans, nuts, whole eggs, cheese (low fat or skim), cream in your coffee. will trial gemfibrozi l Vitamin D deficiency 347 99380 E55.9 Vitamin D 60otc vitamin D3 1000 IU once daily Body mass index 25-29 - overweight 705237217 Z68.27 BMI 30.1Health y Weight: 5'6= 118-154 lbs Rhinitis 57411839 J00 may try OTC antihistam ine Dyspnea on exertion 6084 5006 R06.09 Had ECHO normal systolic function; abnormal diastolic functionNe eds stress testHas current EKG and CXR nowSaw cardiologi st kept on the same meds-had f/u 01/20/2023 is due f/u 07/2023. However, will need a new referral and a new cards as current is out of network. Osteoarthritis 563708369 M19.90 Obesity 252582841 E66.9 BMI 30.1 Abnormal l iver function 21639302 K76.89 stop alcohol consumptio nno tylenol Dupuytren' s contracture of finger 842601286 M72.0 see ortho for follow up after surgerysti ll has contractur enot sure of wanting to return to ortho for this problem Osteopenia 722752708 M85 .88 Hip osteopenia on Dexa Axial skeleton on 05/02/2024w eight bearing exercisesc alcium plus vitamin D [id number] Nasim Blakely MD [facility] [address] [place] [address] 09/05/2024 09:55:42 09/11/2024 11:37:44 Essential hypertension 07521330 I10 BP Goal: Less than 140/90BP Controlled : yes; per the JNC8 guidelines in the absence of renal disease and DMHealthy Weight: 5'6= 118-154 lbsDiscuss ed: Low sodium balanced diet, moderate exercise at least 3-4 times per week for an average of 40 minutesNex t Visit: 3month(s)w ill continue cozaar 50mg dailywill continue amlodipine 5mg dailyconti nue hydrochlor othiazide 25mg qd Mixed hyperlipidemia 267 169702 E78.2 03/08/2021 cho 230 Trig 73 HDL 103 LDL 118 on 04/11/2022 cho 190; trig 102; HDL 61; LDL [address]01/25/20 23cho 201trig 107HDL 105LDL 78 01/23/2024 cho 261trig 100HDL 105LDL 139cant tolerate Zetia, Atorvastat inAvoid all breads, potatoes, cereal, pasta, rice, margarine, refined sugars, milk yogurt, ice cream, juices, soda (including diet), beer, and manmade or manufactur ed desserts. Enjoy steak, fish, chicken (no skin), pork, butter, vegetables , beans, nuts, whole eggs, cheese (low fat or skim), cream in your coffee. will continue gemfibrozi l Rhinitis 72918252 J00 may try OTC antihistam ine Vitamin D deficiency 347 23019 E55.9 Vitamin D 60otc vitamin D3 1000 IU once daily Dyspnea on exertion 6084 5006 R06.09 Had ECHO normal systolic function; abnormal diastolic functionNe eds stress testHas current EKG and CXR noww cardiologi kept on the same meds-had f/u 01/20/2023 is due f/u 07/2023. However, will need a new referral and a new cards as current is out of network.Se en by CARDS 03/26/2024 due to f/u in 1 years Osteoarthritis 713095733 M19.90 Obesity 638261337 E66.9 BMI 30.3 Abnormal l iver function 14708646 K76.89 stop alcohol consumptio nno tylenol Dupuytren' s contracture of finger 457788555 M72.0 see ortho for follow up after surgerysti ll has contractur enot sure of wanting to return to ortho for this problem Osteopenia 209772257 M85 .88 Hip osteopenia on Dexa Axial skeleton on 05/02/2024w eight bearing exercisesc alcium plus vitamin D Administra tion of influenza vaccine 68141974 Z23 Alcohol in take above recommended sensible limits 232528995 F10.10 continues to drink on a daily basisshe was counselled on stoppingli ilene functions elevated [id number] Maryann Quiñonez MD [facility] [address] [address] 01/23/2025 08:58:16 01/23/2025 13:27:34 Mixed hyperlipidemia 534548196 E78.2 03/08/2021 ho 230Trig 73HDL 103LDL 118 on 04/11/2022 cho 190;trig 102;HDL 61; LDL [address]01/25/20 23cho 201trig 107HDL 105LDL 78 01/23/2024 cho 261trig 100HDL 105LDL 139 Will recheck labs.Delores nue gemfibrozi lcant tolerate Zetia, Atorvastat in Avoid all breads, potatoes, cereal, pasta, rice, margarine, refined sugars, milk yogurt, ice cream, juices, soda (including diet), beer, and manmade or manufactur ed desserts. Enjoy steak, fish, chicken (no skin), pork, butter, vegetables , beans, nuts, whole eggs, cheese (low fat or skim), cream in your coffee. Essential hypertension 47895284 I10 BP today: 118/68BP Goal: Less than 140/90BP Controlled : yesHealthy Weight: 5'6= 118-154 lbsDiscuss ed: Low sodium balanced diet, moderate exercise at least 3-4 times per week for an average of 40 minutes, limiting alcohol to 1 drink per day (F) or 2 drinks per day (M), and smoking cessation if currently smoking. Uncontroll ed Hypertensi on potential risks, heart attack, , stroke, kidney failure etc. Hypertensi on is the silent Killer Take your Hypertensi on medication daily keep appointmen ts stop concentrat ed sugars--fo llow 1500 meal plan exercise 50-60 minutes daily on most days see eye doctor once a year see dentist every 6 months Next Visit: 6month(s)C ontinue with hydrochlor othiazide 25 mg dailyConti nue with Cozaar 50 mg dailyconti nue with amlodipine 5 mg dailywill recheck labs Rhinitis 16276826 J00 Using fluticason e and zyrtec. Not working well, will try claritin OTC.Contin ue fluticason e nasal spray, does not need refills today Body mass index 25-29 - overweight 266239240 Z68.27 BMI 29.7 Overweight 266572986 E66 .3 BMI 29.7Briefl y discussed weight loss medication s at patients request, no action taken due to insurance issues and side effects discussed Vitamin D deficiency 347 88524 E55.9 Vitamin D 60Ovitamin D3 1000 IU once dailyWill recheck levels Dyspnea on exertion 6084 5006 R06.09 Had ECHO normal systolic function; abnormal diastolic functionNe eds stress testHas current EKG and CXR nowSaw cardiologi st kept on the same meds-had f/u 01/20/2023 is due f/u 07/2023.Se en by CARDS 03/26/2024 due to f/u in 1 years Osteoarthritis 986007488 M19.90 Continue with gabapentin 600 mg 3 times a day as needed Obesity 400924658 E66.9 BMI 29.7 Abnormal l iver function 74993625 K76.89 stop alcohol consumptio nno tylenol Alcohol in take above recommended sensible limits 771461339 F10.10 Has about 10 drinks in one week but denies drinking on a daily basisshe was counselled on stoppingli ilene functions elevated, will recheck labs today Dupuytren' s contracture of finger 171043638 M72.0 see ortho for follow up after surgerysti ll has contractur enot sure of wanting to return to ortho for this problem, patient is okay not following up with ortho. Osteopenia 902410127 M85 .88 Hip osteopenia on Dexa Axial skeleton on 05/02/2024 ounseled on weight bearing exercisesc alcium plus vitamin D Administra tion of pneumococcal vaccine 36688453 Z23 Prevnar administer ed Depression screening 171 720248 Z13.31 PHQ9- Mild (5 out of 27) [id number] Maryann Quiñonez MD [facility] [address] [address] 01/27/2025 09:59:12 01/28/2025 15:22:06 Mixed hyperlipidemia 298973412 E78.2 03/08/2021 ho 230Trig 73HDL 103LDL 118 on 04/11/2022 cho 190;trig 102;HDL 61; LDL 74 [address] st01/25/20 23cho 201trig 107HDL 105LDL 78 01/23/2024 cho 261trig 100HDL 105LDL 139 Will recheck labs.Delores nue gemfibrozi lcant tolerate Zetia, Atorvastat in Avoid all breads, potatoes, cereal, pasta, rice, margarine, refined sugars, milk yogurt, ice cream, juices, soda (including diet), beer, and manmade or manufactur ed desserts. Enjoy steak, fish, chicken (no skin), pork, butter, vegetables , beans, nuts, whole eggs, cheese (low fat or skim), cream in your coffee. Essential hypertension 82877450 I10 BP today: 118/68BP Goal: Less than 140/90BP Controlled : yesHealthy Weight: 5'6= 118-154 lbsDiscuss ed: Low sodium balanced diet, moderate exercise at least 3-4 times per week for an average of 40 minutes, limiting alcohol to 1 drink per day (F) or 2 drinks per day (M), and smoking cessation if currently smoking. Uncontroll ed Hypertensi on potential risks, heart attack, , stroke, kidney failure etc. Hypertensi on is the silent Killer Take your Hypertensi on medication daily keep appointmen ts stop concentrat ed sugars--fo llow 1500 meal plan exercise 50-60 minutes daily on most days see eye doctor once a year see dentist every 6 months Next Visit: 6month(s)C ontinue with hydrochlor othiazide 25 mg dailyConti nue with Cozaar 50 mg dailyconti nue with amlodipine 5 mg dailywill recheck labs Vitamin D deficiency 347 75305 E55.9 Vitamin D 60Ovitamin D3 1000 IU once dailyWill recheck levels [id number] Nasim Blakely MD [facility] [address] [address] 05/01/2025 09:43:58 05/01/2025 12:19:24 Hypoxemia 625540952 R09.02 pulse ox 93%after 1st treatment 92%after 2nd treatment 94%b/p 98/65 L armafter 7-10 minutes of 02 4L/m pulse ox 98-99%afte r walking from exam room to lobby pulse ox 96-97% Acute chem ical bronchitis 301333789 J68.0 Body mass index 25-29 - overweight 777170898 Z68.27 BMI 29.3Health y Weight: 5'6= 118-154 lbs Health Concerns Section Related Observation LastModified by Organization Detai ls LastModified Time None Recorded Concern Status LastModified by Organization Details LastModified Time None Recorded Advance Directives Directive N: Payers Insurance Date Sequence Insurance Name Policy Number Policy Harmon Covered Member ID Harmon Member ID Guarantor Name 10/31/2023 1 [facility] [id number] Kiki Sunshine [id number] Kiki Sunshine 04/30/2025 [place] [facility] Kiki Sunshine [id number] Kiki Sunshine 05/01/2025 1 [place] Kiki Sunshine [id number] Kiki Sunshine 12/25/2018 1 [facility] [id number] Kiki Sunshine `[id number] Kiki Sunshine 05/01/2025 2 [employer] (MEDICARE SUPPLEMENT) Tad Sunshine [id number] Kiki Sunshine Notes Date Note Type Note Provider Name and Address Organization Details Recorded Time 4 text/html HyperlipidemiaReported bypatient.Prior Tests:highest cholesterol level:; highest LDL level:; highest triglyceride level:; lowest HDL level: Control:usually well controlled; improving; at goal;not at goal; on 04/11/2022 cho 190; trig 102; HDL 61; LDL 74 from customer support consultant 01/24/2023 cho 201 trig 107 HDL 105 LDL 78 01/23/2024 cho 261 trig 100 HDL 105 LDL 139 Current Therapy:currently taking:; last cholesterol level: (201); last LDL level: (78); last triglyceride level: (107); last HDL level: (105) Compliance:compliant; compliant with diet; exercises Complications:cardiovascula r disease Risk Factors:hypertension;obesit yHypertension F/UReported bypatient.Associated Symptoms:no dizziness; no lightheadedness; no shortness of breath; no palpitations; no edema; no calf pain with exertion;chest pain(occasionally but its musculoskeletal) Lifestyle:limiting/avoiding salt;not exercising regularly; walking Medications:taking medications as directed; no side effects from medication 63 y/o WF presents for follow up for her multiple chronic problems. SHe feels well.She had a normal mammogram 11/28/2023. She had a repeat colonoscopy 02/2024 was found to have more polyps. She is due for repeat [id number].She has been having some knee pain knows its arthritis. She has used Gabapentin from her mother's and these do help she doesnt want to take on a regular basis.She saw Dr. Joce Cardona, customer support consultant with [facility] who ordered some labs and testing. She had an echo. It showed normal systolic function and abnormal diastolic function. Denies any headaches, CP, SOB, EDEMA, Syncope or pre-syncope. She does report occasional dyspnea with going up and down stairs. In the past cards advised to stop aspirin 81mg daily. She is now seeing a new customer support consultant Dr Franklin at [facility]. She had some testing and labs was seen last month no changes to f/u in 1 year.She has not been taking atorvastatin for cholesterol for over a year. She did not like how she felt on it. Her lipids have returned elevated. She has been drinking alcohol on a regular basis vodka. Her LFT's were elevated on her last labs. She had repeat testing still elevated. She was advised to stop drinking alcohol on a regular basis. She denies any abdominal pain or blood in the stool. Her colonoscopy showed internal hemorrhoids and diverticulosis.She had dexa scan which shows osteopenia. SHe was counseled on weight bearing exercises, calcium and vitamin D needs. MAGGIE Briggs-TIMI Attn: Accounting,[address] [place], [address], [facility] 05/31/2024 11:06:01 4 text/html HyperlipidemiaReported bypatient.Prior Tests:highest cholesterol level:; highest LDL level:; highest triglyceride level:; lowest HDL level: Control:usually well controlled; improving; at goal;not at goal; on 04/11/2022 cho 190; trig 102; HDL 61; LDL 74 from customer support consultant 01/24/2023 cho 201 trig 107 HDL 105 LDL 78 01/23/2024 cho 261 trig 100 HDL 105 LDL 139 Current Therapy:currently taking:; last cholesterol level: (201); last LDL level: (78); last triglyceride level: (107); last HDL level: (105) Compliance:compliant; compliant with diet; exercises Complications:cardiovascula r disease Risk Factors:hypertension;obesit yHypertension F/UReported bypatient.Associated Symptoms:no dizziness; no lightheadedness; no shortness of breath; no palpitations; no edema; no calf pain with exertion;chest pain(occasionally but its musculoskeletal) Lifestyle:limiting/avoiding salt;not exercising regularly; walking Medications:taking medications as directed; no side effects from medication 64 y/o WF presents for follow up for her multiple chronic problems. SHe feels well.She had a normal mammogram 11/28/2023. She had a repeat colonoscopy 02/2024 was found to have more polyps. She is due for repeat on0972.She has been having some knee pain knows its arthritis. She has used Gabapentin from her mother's and these do help she doesnt want to take on a regular basis.She saw Dr. Joce Cardona, customer support consultant with [facility] who ordered some labs and testing. She had an echo. It showed normal systolic function and abnormal diastolic function. Denies any headaches, CP, SOB, EDEMA, Syncope or pre-syncope. She does report occasional dyspnea with going up and down stairs. In the past cards advised to stop aspirin 81mg daily. She is now seeing a new customer support consultant Dr Franklin at [facility]. She had some testing and labs, no changes and is to f/u in 1 year.She has not been taking atorvastatin for cholesterol for over a year. She did not like how she felt on it. Her lipids have returned elevated. She has been drinking alcohol on a regular basis vodka. Her LFT's were elevated on her last labs. She had repeat testing still elevated. She was advised to stop drinking alcohol on a regular basis. She denies any abdominal pain or blood in the stool. Her colonoscopy showed internal hemorrhoids and diverticulosis.She had dexa scan which shows osteopenia. SHe was counseled on weight bearing exercises, calcium and vitamin D needs.She wants to get influenza vaccine. SHe has no contraindications. RUPERT Briggs Attn: Accounting[address] [place], [address], [facility] 09/06/2024 12:32:25 5 text/html Hypertension F/UReported bypatient.Associated Symptoms:no dizziness; no lightheadedness; no chest pain; no shortness of breath; no palpitations; no edema; no calf pain with exertion Lifestyle:regular exercise; limiting/avoiding salt Medications:taking medications as directed; no side effects from medication This is a 64 yo female here today following up on multiple chronic conditions. She notes her medications are working well and notes no side effects.Denies fever, chills, N/V/D, CP, SOB, palpitations. MARIA C ESCALANTE PA-C Attn: Accounting[address] [facility], [place], [address], [facility] 01/23/2025 12:35:13 5 text/html 64 y/o SRINIVAS presents with a 6 day history of feeling tired, weak, sob after exposure to bleach and ammonia while cleaning her bathroom. She has been having dry cough mixed with production of thick green mucous. She denies any fever. She does feel feverish. She is achy all over. It hurts to walk. Pulse ox on intake is 93% RUPERT Briggs Attn: Accounting[address] [place], [address], [facility] 05/01/2025 14:00:44 OBGyn Episode Ob Episode Information Episode Created Date Number of Fetuses Patient Bloodtype Patient rh Status Prepregnancy Weight lbs Domestic Partner Domestic Partner Phone Father Name Sludge Filtration Attendant Status 03/04/20 21 1 CLOSED Fetus Data First Name Last Name Admitted to NICU Weight (g) Sex Living Outcome Pediatric Complications Fetus ID Race Codes Race Delivery Type F [id number] Nikolay Calculation Initial Nikolay Date Initial Exam Date Initial Exam Provider Initial Ultrasound Date Last Menstrual Period Date Ultra Sound Weeks Gestation 0 Eighteen To Twenty Week Nikolay Update Ultra Sound Date Fundal Height At Umbil Quickening Date Ultra Sound Latest Weeks Gestation Final Nikolay Confirmed By Final Nikolay Confirmed Date Final Nikolay Date Ultra Sound Latest Days Gestation 0 0 Menstrual History Last Menstrual Date Menses Monthly On Bcp Conception Prior Menses Frequency Hcg Plus Date Menarche Onset Age Delivery Information Delivery Date Delivery Type Labor Anesthesia Weeks Gestation Incision Type Labor Labor Length Hrs Delivered By Post Complications Tubal Sterilization Discharge Date Comments 2 Discharge Information Feeding Method Contraceptive Method Maternal HG B and HCT Levels
[2025-05-03 15:29] VITALS: BP 103/57; PULSE 78; RESP 20; O2SAT 97
--- NOTE | 2025-05-03 15:40 | ECG_ITS ---
Test Date: 2025-05-03 15:51:49 Measurements Intervals Mabie Rate: 67 P: 29 MN: 145 QRS: 9 QRSD: 104 T: 31 QT: 431 QTc: 457 Interpretive Statements SINUS RHYTHM NORMAL ECG No previous ECG available for comparison Electronically Signed On 05-03-2025 16:08:21 CDT by Alex Dwyer M.D.
[2025-05-03 15:55] LABS: Hematocrit 40.9 % (37.0-47.0); Hemoglobin 14.5 g/dL (12.0-15.0); Immature Granulocyte Percent A 0.9 % (0-0.5); Lymphocytes Absolute Auto 0.87 K/mm3 (0.9-3.2); Mean Corpuscular HGB Conc 35.5 g/dl (32-36); Mean Corpuscular Hemoglobin 31.3 pg (26-34); Mean Corpuscular Volume 88.1 fl (80-100); Nucleated Red Blood Cells Absolute Auto 0.000 K/mm3 (0.0-0.012); Nucleated Red Blood Cells Perc 0.0 % (0.0-0.2); Platelet Count Result 228 k/mm3 (150-375); Red Blood Count 4.64 M/mm3 (4.2-5.4); White Blood Count 11.3 K/mm3 (4.5-10.0)
[2025-05-03 15:56] VITALS: RESP 20; O2SAT 99
[2025-05-03 16:06] LABS: Alanine Aminotransferase 75 U/L (6-35); Albumin Level 3.8 g/dL (3.5-5.1); Alkaline Phosphatase 64 U/L (38-126); Anion Gap 14 mmol/L (4-12); Aspartate Amino Transferase 95 U/L (14-36); Bilirubin,Total 0.6 mg/dL (0.2-1.3); Blood Urea Nitrogen 38 mg/dL (7-17); Calcium 10.1 mg/dL (8.4-10.2); Carbon Dioxide 25 mmol/L (22-30); Chloride 91 mmol/L (98-107); Estimated CRCL calculation 41 ml/min; Estimated Glomerular Filt Rate 41; Glucose 197 mg/dL (65-110); Potassium 2.3 mmol/L (3.4-5.0); Sodium 130 mmol/L (137-145); Total Protein 7.4 g/dL (6.3-8.2)
--- OUTSIDE RECORDS SUMMARY | 2025-05-03 16:07 | XMS_ITS | Clinical Summary ---
Author Organization [facility] Address [address] [facility], [address] [address] Phone Care Team Providers Care Biomedical Analytical Scientist Name Role Phone Cornelius Oviedo MANOLO Primary Care Provider [phone] Social History Tobacco Use Types Packs/Day Years [...] Recently Relevant to Health Maintenance Care Teams Biomedical Analytical Scientist Relationship Specialty Start Date End Date Cornelius Oviedo APRN [address] [place] [address] PCP - General Advanced Practice Nurse 09/05/18
--- OUTSIDE RECORDS SUMMARY | 2025-05-03 16:07 | XMS_ITS | Encounter Summary ---
Author Organization [facility] Address [address] [place] [id number] Care Team Providers Care Cigarette Making Machine Operator Name Role Phone Cornelius Oviedo BETY Primary Care Provider [phone] Encounter Details Date Type Department Care Team (Late st Contact Info) Description 01/03/2024 Abstract [facility] [facility], 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 Gender Identity Not on file Sexual Orientation Not on file documented as of this encounter Plan of Treatment Upcoming Encounters Date Type Department Care Team (Late st Contact Info) Description 04/14/2026 9:00 AM CDT Office Visit [facility] [facility], [place] [address] [place] [address] Osito Franklin MD [facility], [address] [place], [place] [id number] documented as of this encounter Procedures Procedure Name Priority Date/Time Associated Diagnosis Comments COMPREHENSIVE METABOLIC PANEL Routine 01/24/2023 LIPID PANEL Routine 01/24/2023 CBC, MANUAL DIFF Routine 01/24/2023 documented in this encounter Results * COMPREHENSIVE METABOLIC PANEL (01/24/2023) Pathologist [facility] SODIUM S/P/B 139 GLUCOSE 99 mg/dL AST 48.5 BUN 12 CREATININE S/P/B 0.51 0.5 - 1.0 CALCIUM S/P/B 10.4 POTASSIUM S/P/B 4.0 CHLORIDE S/P/B 96 ALT 43.5 GFR ESTIMATE 104 us Default History Genericprovider LABORATORY Final Result * LIPID PANEL (01/24/2023) Pathologist [facility] CHOLESTEROL 201.6 TRIGLYCERIDES 107 HDL 105.2 LDL (CALCULATED) 78.3 us Default History Genericprovider LABORATORY Final Result * CBC, MANUAL DIFF (01/24/2023) Pathologist [facility] WBC 5.9 HGB 14.2 HCT 43.6 PLT 193 us Default History Genericprovider LABORATORY Final Result documented in this encounter Visit Diagnoses Not on filedocumented in this encounter Care Teams Cigarette Making Machine Operator Relationship Specialty Start Date End Date Cornelius Oviedo CNP PCP - General NURSE PRACTITIONER 11/20/23 documented as of this encounter
--- OUTSIDE RECORDS SUMMARY | 2025-05-03 16:07 | XMS_ITS | Clinical Summary ---
Author Organization [facility] Address [address] [place] [address] Care Team Providers Care Armed Security Professional Name Role Phone Cornelius Oviedo CNP Primary Care Provider [phone] Allergies No known active allergies Medications amLODIPine [...] CDT Office Visit [facility], [address] [address] Osito Franklin MD Hypertension; Lipids; Follow Up (Annual.) 04/01/2025 Travel 03/06/2025 Results Follow-Up [facility], [address] [address] Deepa Interiano RN USE ECHOCARDIOGRAM 03/04/2025 8:00 AM CDT - 03/04/2025 11:59 PM CDT Hospital Encounter [facility] Non [place]vasive [place] [address] Osito Franklin MD Discharge Disposition: Home or [...] on file Legal Sex 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 Gender Identity Not on file Sexual Orientation [...] Description 04/14/2026 9:00 AM CDT Office Visit [facility], [address] [place] [address] Osito Franklin MD [facility] [address] [place] [address] Health Maintenance Due Date Last Done Comments [...] 03/06/2025 11:38 AM CDT Echocardiography Report Pat.Name: KKII SUNSHINE Pat.ID: [id number] .Date: 03/04/2025 Exam Time: 8:08:00 AM Study Type:ECHO WITH CARDIAC DOPPLER COMP Height: 66 in Weight: 188 lb BSA: 1.95 m2 Age: 11 1960,64Y Sex: F BP: 155/72 Sonogrphr: Leidy Kamara Pat. Stat.:Outpatient CPT - 4: 15363 Reason for Study:Moderate Tricuspid Regurgitation Procedures: 2D, [...] second Left atrial jeanne 4.03 cm LVOT/AoV (MOLDER BENCH) ( 0.5 AV Antegrade Flow Peak Velocity [...] 03/06/2025 Echocardiography Report Pat.Name: KIKI SUNSHINE Pat.ID: [id number] St.Date: 03/04/2025 Exam Time: 8:08:00 AM Study Type:ECHO WITH CARDIAC DOPPLER COMP Height: 66 in Weight: 188 lb BSA: 1.95 m2 Age: 11 1960,64Y Sex: F BP: 155/72 Sonogrphr: Leidy Kamara Pat. Stat.:Outpatient CPT - 4: 21565 Reason for Study:Moderate Tricuspid Regurgitation Procedures: 2D, [...] second Left atrial jeanne 4.03 cm LVOT/AoV (MOLDER BENCH) ( 0.5 AV Antegrade Flow Peak Velocity [...] Insurance MEDICARE GENERIC - COMMERCIAL Care Teams Armed Security Professional Relationship Specialty Start Date End Date Cornelius Oviedo CNP PCP - General NURSE PRACTITIONER 11/20/23
[2025-05-03] MEDS: POTASSIUM CHLORIDE INJ 40 MEQ in SODIUM CHLORIDE 0.9% IV 500 ML 130 MEQ IVPB (16:16)
[2025-05-03] MEDS: POTASSIUM CHLORIDE 20 MEQ ER TABLET 40 MEQ PO (16:16)
--- NOTE | 2025-05-03 17:04 | ED_ITS ---
HPI - General Adult General Chief complaint: Recheck/Abnormal Lab/Rx Stated complaint: pna Time Seen by Provider: 05/03/25 15:41 History of Present Illness HPI narrative: Patient is a 64-year-old female who presents ER with multiple issues. Over last 3 days she has been having progressive weakness with difficulty handling items and feeling dizzy and lightheaded. She thinks it may be related to being exposed to a mixture of bleach and pneumonia. She was cleaning a room and was enclosed in the room for approximately 1 hour. She had an outpatient x-ray was told she may have pneumonia but she is not having any productive cough for significant shortness of breath. No chest pain or chest pressure. No vomiting. No diarrhea. Related Data Home Medications ?Medication ?Instructions ?Recorded ?Confirmed ?Last Taken ?Type amlodipine 5 mg tablet 5 mg PO DAILY 02/20/24 02/20/24 Unknown History cetirizine 10 mg tablet 10 mg PO DAILY 02/20/24 02/20/24 Unknown History gabapentin 600 mg tablet 600 mg PO TID PRN Pain 02/20/24 02/20/24 Unknown History gemfibrozil 600 mg tablet 600 mg PO BID 02/20/24 02/20/24 Unknown History hydrochlorothiazide 25 mg tablet 25 mg PO DAILY 02/20/24 02/20/24 Unknown History losartan 50 mg tablet 50 mg PO DAILY 02/20/24 02/20/24 Unknown History Allergies Allergy/AdvReac Type Severity Reaction Status Date / Time No Known Allergies Allergy Verified 05/03/25 15:39 Review of Systems 2 Review of Systems: All systems reviewed & are unremarkable except as noted in HPI and below Constitutional: Constitutional: Reports no additional constitutional complaints Cardiovascular: Cardiovascular: Reports no additional cardiovascular complaints Respiratory: Respiratory: Reports no additional respiratory complaints Gastrointestinal: Gastrointestinal: Reports no additional gastrointestinal complaints Musculoskeletal: Musculoskeletal: Reports no additional musculoskeletal complaints Neurologic: Reports system reviewed and no additional complaints, except as documented [facility] Past Medical History Medical History (Updated 05/03/25 @ 17:47 by Al Méndez MD) Hypertension Colon polyp Social History Social History Smoking packs per day: 2 Smoking cigarettes per day: 40.0 Years smoked: 40 Smoking pack-years: 80.00 Smoking status: Former smoker Tobacco type: cigarettes Alcohol intake: current Drinks per week: 10 Spiritual care concerns: No Exam 2 Narrative: GENERAL: Well-appearing, well-nourished, and in no acute distress. HEAD: Normocephalic, atraumatic. EYES: PERRL and EOMI. ENT: Mucous membranes moist. CHEST: Clear to auscultation. No respiratory distress. HEART: Regular rate and rhythm. Normal peripheral pulses. ABDOMEN: Soft, nontender, nondistended. EXTREMITIES: Normal range of motion. No edema. SKIN: Warm, dry, no rash. NEURO: Alert and oriented x3. Normal [id number] testing. No upper lower extremity drift. Cranial nerves symmetric. Clear speech without expressive aphasia. PSYCH: Normal mood and affect. Course Course Emergency Course: Patient resting comfortably. Informed of results. Will treat for pneumonia given elevated lactate white count and abnormal chest x-ray though the majority of her symptoms are likely related to her hypokalemia. CTA without significant finding to explain her symptoms. Vital Signs Vital signs: Vital Signs Pulse Rate 78 05/03/25 15:29 Respiratory Rate 20 05/03/25 15:29 Blood Pressure 103/57 L 05/03/25 15:29 Pulse Oximetry 97 05/03/25 15:29 Oxygen Delivery Room Air 05/03/25 15:29 Pulse Rate 78 05/03/25 15:29 Respiratory Rate 20 05/03/25 15:56 Blood Pressure 103/57 L 05/03/25 15:29 Pulse Oximetry 99 05/03/25 15:56 Oxygen Delivery Room Air 05/03/25 15:29 Medical Decision Making Vital Signs Vital Signs: Vital Signs Pulse Rate 78 05/03/25 15:29 Respiratory Rate 20 05/03/25 15:29 Blood Pressure 103/57 L 05/03/25 15:29 Pulse Oximetry 97 05/03/25 15:29 Oxygen Delivery Room Air 05/03/25 15:29 Pulse Rate 78 05/03/25 15:29 Respiratory Rate 20 05/03/25 15:56 Blood Pressure 103/57 L 05/03/25 15:29 Pulse Oximetry 99 05/03/25 15:56 Oxygen Delivery Room Air 05/03/25 15:29 Lab Data 05/03/25 15:47 05/03/25 15:47 Labs: Lab Results 05/03/25 05/03/25 05/03/25 Range/Units 15:47 15:48 16:47 WBC 11.3 H (4.5-10.0) K/mm3 RBC 4.64 (4.2-5.4) M/mm3 Hgb 14.5 (12.0-15.0) g/dL Hct 40.9 (37.0-47.0) % MCV 88.1 (80-100) fl MCH 31.3 (26-34) pg MCHC 35.5 (32-36) g/dl RDW 13.1 (11.5-14.5) % Plt Count 228 (150-375) k/mm3 MPV 12.1 H (7.4-10.4) fl Immature Gran % (Auto) 0.9 H (0-0.5) % Neut % (Auto) 83.0 H (45.5-73.1) % Lymph % (Auto) 7.7 L (18.3-44.2) % Glynn % (Auto) 8.0 (2.6-8.5) % Eos % (Auto) 0.0 (0-4.4) % Baso % (Auto) 0.4 (0.2-1.2) % Lymph # (Auto) 0.87 L (0.9-3.2) K/mm3 Glynn # (Auto) 0.9 H (0.1-0.6) K/mm3 Eos # (Auto) 0.0 (0-0.3) K/mm3 Baso # (Auto) 0.0 (0.0-0.1) K/mm3 Abs Immat Gran (auto) 0.10 H (0.00-0.031) K/mm3 Absolute Neuts (auto) 9.4 H (1.3-6.7) K/mm3 Absolute Nucleated RBC 0.000 (0.0-0.012) K/mm3 Nucleated RBC % 0.0 (0.0-0.2) % Sodium 130 L (137-145) mmol/L Potassium 2.3 L* (3.4-5.0) mmol/L Chloride 91 L (98-107) mmol/L Carbon Dioxide 25 (22-30) mmol/L Anion Gap 14 H (4-12) mmol/L BUN 38 H (7-17) mg/dL Creatinine 1.29 H (0.7-1.0) mg/dL Estim Creat Clear Calc 41 ml/min Estimated GFR 41 L (59 - ) Glucose 197 H (65-110) mg/dL Lactic Acid 2.7 H (0.7-2.0) mmol/L Calcium 10.1 (8.4-10.2) mg/dL Total Bilirubin 0.6 (0.2-1.3) mg/dL AST 95 H (14-36) U/L ALT 75 H (6-35) U/L Alkaline Phosphatase 64 (38-126) U/L Total Protein 7.4 (6.3-8.2) g/dL Albumin 3.8 (3.5-5.1) g/dL Urine Color Yellow (Yellow) Urine Appearance Cloudy H (Clear) Urine pH 6.5 (5.0-9.0) Ur Specific [place] 1.022 (1.001-1.035) Urine Protein 1+ H (Negative) mg/dL Urine Glucose (UA) Negative (Negative) mg/dL Urine Ketones Negative (Negative) mg/dL Ur Blood (Man) Negative (Negative) Urine Nitrate Negative (Negative) Urine Bilirubin Negative (Negative) Urine Urobilinogen 0.2 (<2.0) mg/dL Add Ur Microanalysis Reviewed Leukocyte Esterase Rfl Trace H (Negative) HERB/UL Urine RBC 0-2 (0-2) /hpf Urine WBC 11-20 H (0-3) /hpf Ur Squamous Epith Cells Moderate (Few) /hpf Urine Bacteria None seen /hpf Urine Casts 11-20 Imaging Data Radiologist's impression: ITS Impressions Chest X-Ray 05/03/25 16:12 IMPRESSION: Left basilar atelectasis versus pneumonia with no change from previous examination. Head/Neck CTA 05/03/25 16:58 IMPRESSION: 1. Normal CTA head. 2. CTA neck. Percent stenosis per NASCET criteria is 20% on the right and 60% on the left . 3. Left basilar atelectasis versus pneumonia with pleural effusion. ECG Data EKG #1: ECG completion date: 05/03/25 ECG completion time: 15:51 EKG Interpretation: normal rate (67), sinus rhythm, non-specific ST changes, normal QRS, normal QT and NL axis Critical Care Time Critical Care Time Critical Care Time: Yes Total Critical Care Time: 35 Discharge Plan Discharge Clinical Impression: Hyperkalemia, Pneumonia Patient Disposition: Home Condition: Stable Patient Language: Arabic Prescriptions: No Action losartan 50 mg tablet 50 mg PO DAILY cetirizine 10 mg tablet 10 mg PO DAILY amlodipine 5 mg tablet 5 mg PO DAILY gemfibrozil 600 mg Tablet 600 mg PO BID hydrochlorothiazide 25 mg tablet 25 mg PO DAILY gabapentin 600 mg tablet 600 mg PO TID PRN (Reason: Pain) Follow-up/Referrals: Ivelisse,MARGO Shields [Primary Care Provider] - Quality Stroke Scale Stroke Scale 1: Stroke scale date:: 05/03/25 Stroke scale time:: 17:09 1a Level of consciousness: alert-0 1b Level of consciousness questions: answers both correctly-0 1c Level of consciousness commands: obeys both correctly-0 2 Best gaze: normal-0 3 Visual: no visual loss-0 4 Facial palsy: normal-0 5a Motor: left arm: no drift-0 5b Motor: right arm: no drift-0 6a Motor: left leg: no drift-0 6b Motor: right leg: no drift-0 7 Limb ataxia: absent-0 8 Sensory: normal-0 9 Best language: no aphasia-0 10 Dysarthria: normal-0 11 Extinction and inattention: no abnormality-0 Level:: 0
[2025-05-03 17:12] LABS: Add Urine Microscopic? YES; Appearance Urine Cloudy (Clear); Glucose Urine UA Negative (Negative); Leukocyte Esterase Ur Trace LEU/UL (Negative); Need Manual Microscopic Reviewed; Nitrate Urine Negative (Negative); Specific Grav Ur 1.022 (1.001-1.035)
[2025-05-03 18:11] VITALS: BP 93/57; PULSE 66; RESP 16; O2SAT 99
--- NOTE | 2025-05-03 18:51 | P.HP_ITS ---
H&P: HPI History of Present Illness Date/Time: 05/03/25 18:51 Chief Complaint: Weakness Narrative: 64-year-old female past medical history of hypertension presents the hospital multiple issues she states that over the last 3 days she has had progressive weakness, dizziness and lightheadedness. She thinks that she was exposed to bleach in cleaning products. Patient complains of muscle pains and back aches. She states that she has been using her sister's heating pad. She denies nausea or vomiting. Lab work shows leukocytosis at 11.3, sodium of 130, potassium is 2.3, chloride of 91, anion gap of 14, BUN of 38, creatinine of 1.29 no known history of CKD, GFR 41, lactic acid 2.7, AST 95, ALT of 75, UA is cloudy with trace leukocyte esterase negative for nitrates. Chest x-ray shows atelectasis versus pneumonia. Patient being admitted for hypokalemia UTI and DAYDAY. Review of Systems Review of Systems: 12 systems were reviewed and are negativ e except for as per HPI. [facility] Past Medical History Medical History (Updated 05/03/25 @ 21:56 by Chani Sherman, FREIGHT TEAM ASSOCIATE) Hypertension Colon polyp Social History Social History Smoking packs per day: 2 Smoking cigarettes per day: 40.0 Years smoked: 40 Smoking pack-years: 80.00 Smoking status: Former smoker Tobacco type: cigarettes Alcohol intake: current Drinks per week: 10 Spiritual care concerns: No Meds Home Medications and Allergies Home Medications ?Medication ?Instructions ?Recorded ?Confirmed ?Type amlodipine 5 mg tablet 5 mg PO DAILY 02/20/24 02/20/24 History cetirizine 10 mg tablet 10 mg PO DAILY 02/20/24 02/20/24 History gabapentin 600 mg tablet 600 mg PO TID PRN Pain 02/20/24 02/20/24 History gemfibrozil 600 mg tablet 600 mg PO BID 02/20/24 02/20/24 History hydrochlorothiazide 25 mg tablet 25 mg PO DAILY 02/20/24 02/20/24 History losartan 50 mg tablet 50 mg PO DAILY 02/20/24 02/20/24 History Allergies Allergy/AdvReac Type Severity Reaction Status Date / Time No Known Allergies Allergy Verified 05/03/25 15:39 Vital Signs Vital Signs - 24 hr 05/03/25 15:29 05/03/25 15:56 05/03/25 18:11 Pulse Rate 78 66 Respiratory Rate 20 20 16 Blood Pressure 103/57 L 93/57 L Pulse Oximetry 97 99 99 Oxygen Delivery Room Air Exam Narrative: General: well appearing, appears stated age. HEENT: normocephalic, atraumatic. Mucous membranes moist. EOMI, PERRLA, bilateral sclera anicteric, no conjunctival injection. Neck supple without JVD, lymphadenopathy, or bruit. Respiratory: clear to ascultation bilaterally. No rales/rhonic/wheezes. Cardiovascular: Regular rate and rhythm, normal S1-S2 upon ascultation. No murmurs, rubs, or clicks. PMI is nondisplaced, capillary refill less than 3 second. Abdomen: Soft, round, no pulsatile masses, nondistended and nontender. No marsha ound, no guarding. No CVA tenderness, no hepatosplenomegaly. Bowel sounds present to all four quadrants. No high pitch or tinkling sounds, resonant to percussion. Extremities: No cyanosis, clubbing, or edema present. Pulses are palpable 2/2. Active ROM to all four extremities. Neuro: Alert and orientated x 4. PERRLA. Cranial nerves 2-12 intact without focal deficit. Skin: Warm, dry, and intact, without rash, erythema, or lesion. Psych: pleasant, cooperative, normal speech, normal affect, no hallucinations, no dysarthia H&P: Results Labs Labs: Short CBC 05/03/25 Range/Units 15:47 WBC 11.3 H (4.5-10.0) K/mm3 Hgb 14.5 (12.0-15.0) g/dL Hct 40.9 (37.0-47.0) % Plt Count 228 (150-375) k/mm3 BMP 05/03/25 15:47 Sodium 130 L Potassium 2.3 L* Chloride 91 L Carbon Dioxide 25 BUN 38 H Creatinine 1.29 H Glucose 197 H Calcium 10.1 Liver Function 05/03/25 Range/Units 15:47 Total Bilirubin 0.6 (0.2-1.3) mg/dL AST 95 H (14-36) U/L ALT 75 H (6-35) U/L Alkaline Phosphatase 64 (38-126) U/L Albumin 3.8 (3.5-5.1) g/dL Urine 05/03/25 Range/Units 16:47 Urine Color Yellow (Yellow) Urine Appearance Cloudy H (Clear) Urine pH 6.5 (5.0-9.0) Ur Specific [place] 1.022 (1.001-1.035) Urine Protein 1+ H (Negative) mg/dL Urine Glucose (UA) Negative (Negative) mg/dL Assessment and Plan Assessment and plan (1) Pneumonia: Code(s): J18.9 - Pneumonia, unspecified organism Status: Acute Assessment and Plan: Azithromycin and Rocephin Guaifenesin Incentive spirometer (2) UTI (urinary tract infection): Code(s): N39.0 - Urinary tract infection, site not specified Status: Acute Assessment and Plan: IV Rocephin Culture and sensitivity pending IVF (3) Hypokalemia: Code(s): E87.6 - Hypokalemia Status: Acute Assessment and Plan: 2.3 on admission Repleted in the emergency room with 40 IV and 60 oral Repeat potassium 2.7 Forty mEq p.o. potassium A.m. BMP (4) Lactic acid acidosis: Code(s): E87.20 - Acidosis, unspecified Status: Acute Assessment and Plan: Lactic acid 2.7 Repeat lactic 1.7 Resolved after fluid bolus (5) Weakness: Code(s): R53.1 - Weakness Status: Acute Assessment and Plan: Likely due to severe hypokalemia PT OT evaluate and treat (6) Hypertension: Code(s): I10 - Essential (primary) hypertension Status: Acute Assessment and Plan: Hold while hypotensive (7) DAYDAY (acute kidney injury): Code(s): N17.9 - Acute kidney failure, unspecified Status: Acute Assessment and Plan: No known history of CKD IV fluids BMP in the morning Quality VTE Prophylaxis VTE prophylaxis: mechanical ordered and pharmacologic ordered Waiting on nursing to complete home med rec Hospitalist [facility] Advance Care Plan I have confirmed that the patient's Advanced Care Plan is present, code status is documented, or surrogate decision maker is listed in patient medical record.: Yes
[2025-05-03 19:42] VITALS: BMI 29.2
[2025-05-03 20:58] LABS: Potassium 2.7 mmol/L (3.4-5.0)
[2025-05-03] MEDS: SODIUM CHLORIDE 0.9% IV 1,000 ML 100 ML IV CONT (21:17)
[2025-05-03] MEDS: AZITHROMYCIN IV 500 MG in SODIUM CHLORIDE 0.9% IV 250 ML IVPB (21:17)
[2025-05-03 21:18] VITALS: O2SAT 95
[2025-05-03] MEDS: guaiFENesin 12 HR 600 MG TABCR 1200 MG PO (21:18)
[2025-05-03 21:57] VITALS: BP 100/49; PULSE 62; RESP 19; TEMP 36.3; O2SAT 95
[2025-05-03] MEDS: POTASSIUM CHLORIDE 20 MEQ PACKET (FOR LIQUID) 40 MEQ PO (22:50)
[2025-05-04] VITALS (12 sets, daily range): BP systolic 96–109; BP diastolic 57–63; PULSE 56–77; RESP 14–20; TEMP 35.8–36.5; O2SAT 94–99
--- NOTE | 2025-05-04 00:59 | ADMGEN ---
This patient, Kiki Sunshine, was admitted to [facility] Surg Room 313-01. Patient/family oriented to hospital policies and general routines including ID bracelet, bed and alarms, visiting hours, pain management, procedures, bathroom and other care routines, personal items, smoking policy, room service/diet, and visiting hours. Information on how to activate the Rapid Response Team has been discussed. Patient/Family are encouraged to report perceived risks to care and to ask questions if they do not understand what they are told or what they should do.
--- NOTE | 2025-05-04 06:47 | PC.NURSE ---
Kalyani Chávez NP notified patient's requested for code status changed from Full code to DNR status.
[2025-05-04 07:43] LABS: Hematocrit 38.0 % (37.0-47.0); Hemoglobin 13.1 g/dL (12.0-15.0); Immature Granulocyte Percent A 1.4 % (0-0.5); Lymphocytes Absolute Auto 1.35 K/mm3 (0.9-3.2); Mean Corpuscular HGB Conc 34.5 g/dl (32-36); Mean Corpuscular Hemoglobin 31.4 pg (26-34); Mean Corpuscular Volume 91.1 fl (80-100); Nucleated Red Blood Cells Absolute Auto 0.000 K/mm3 (0.0-0.012); Nucleated Red Blood Cells Perc 0.0 % (0.0-0.2); Platelet Count Result 251 k/mm3 (150-375); Red Blood Count 4.17 M/mm3 (4.2-5.4); White Blood Count 11.5 K/mm3 (4.5-10.0)
[2025-05-04 07:58] LABS: Alanine Aminotransferase 59 U/L (6-35); Albumin Level 3.3 g/dL (3.5-5.1); Alkaline Phosphatase 51 U/L (38-126); Anion Gap 10 mmol/L (4-12); Aspartate Amino Transferase 66 U/L (14-36); Bilirubin,Total 0.4 mg/dL (0.2-1.3); Blood Urea Nitrogen 31 mg/dL (7-17); Calcium 9.7 mg/dL (8.4-10.2); Carbon Dioxide 27 mmol/L (22-30); Chloride 100 mmol/L (98-107); Estimated CRCL calculation 60 ml/min; Estimated Glomerular Filt Rate > 60; Glucose 133 mg/dL (65-110); Magnesium 2.3 mg/dL (1.6-2.3); Potassium 3.4 mmol/L (3.4-5.0); Sodium 137 mmol/L (137-145); Total Protein 6.4 g/dL (6.3-8.2)
[2025-05-04] MEDS: ALBUTEROL SULFATE (*SP) AEROSOL 1 PUFF 2 PUFF INHALATION ×2 (08:05→11:32)
[2025-05-04] MEDS: POTASSIUM CHLORIDE 20 MEQ ER TABLET PO (09:23)
[2025-05-04] MEDS: CHOLECALCIFEROL (VITAMIN D3) 25 MCG (1,000 UNITS) TABLET 50 MCG PO (09:23)
[2025-05-04] MEDS: guaiFENesin 12 HR 600 MG TABCR 1200 MG PO ×2 (09:24→20:47)
[2025-05-04] MEDS: LOSARTAN POTASSIUM 50 MG TABLET PO (09:24)
[2025-05-04] MEDS: LORATADINE 10 MG TABLET PO (09:24)
--- NOTE | 2025-05-04 13:00 | P.PNIM_ITS ---
Progress Note: A&P Assessment and Plan (1) Pneumonia: Code(s): J18.9 - Pneumonia, unspecified organism Status: Acute Assessment and Plan: Azithromycin and Rocephin Guaifenesin Incentive spirometer 05/04/25: * Overall respiratory assessment today is reassuring. * Continue abx for now. * Continue IS * CXR in AM (2) UTI (urinary tract infection): Code(s): N39.0 - Urinary tract infection, site not specified Status: Acute Assessment and Plan: IV Rocephin Culture and sensitivity pending IVF 05/04/25: * There is no culture and sensitivity pending. * UA contaminated with moderate Epithelials. Will order separate culture, but low suspicion of actual UTI. (3) Hypokalemia: Code(s): E87.6 - Hypokalemia Status: Resolved Assessment and Plan: 2.3 on admission Repleted in the emergency room with 40 IV and 60 oral Repeat potassium 2.7 Forty mEq p.o. potassium A.m. [facility] 05/04/25: * Resolved K+ 3.4 today (4) Lactic acid acidosis: Code(s): E87.20 - Acidosis, unspecified Status: Resolved Assessment and Plan: Lactic acid 2.7 Repeat lactic 1.7 Resolved after fluid bolus 05/04/25: * Resolved with Lactic Acid of 1.7. (5) Weakness: Code(s): R53.1 - Weakness Status: Acute Assessment and Plan: Likely due to severe hypokalemia PT OT evaluate and treat 05/04/25: * Awaiting PT and OT evaluation and treatment plan. * Fall precautions * Continue to trend and monitor labs and VS. (6) Hypertension: Code(s): I10 - Essential (primary) hypertension Status: Acute Assessment and Plan: Hold while hypotensive 05/04/25: * Pt is no longer Hypotensive, but rather Normotensive with SBP ranging 93-145 and DBP ranging 49-76. * Continue Amlodipine vs. Losartan at this time. (7) DAYDAY (acute kidney injury): Code(s): N17.9 - Acute kidney failure, unspecified Status: Resolved Assessment and Plan: No known history of CKD IV fluids BMP in the morning 05/04/25: * Resolved. Cr/BUN now 0.88/31 Plan Overall improving. Awaiting PT/OT eval and will be ready for discharge at that time. Time Spent With Patient Time with patient: 25 - 35 minutes Subjective Date/time seen: 05/04/25 13:00 Interval history: This very pleasant female pt was examined today at the bedside after being admitted to the hospital for a presumed respiratory infection and electrolyte abnormalities causing weakness. She states she feels a little stronger today and has no new complaints or symptoms. She remains on Rocephin and Azithromycin for CXR that was concerning for potential PNA. Review of Systems Review of Systems: All systems reviewed & are unremarkable except as noted in HPI and below Exam 2 Const: General: comfortable and no acute distress HENMT: Face/Nose/Sinus: Normal nares present Mouth: Yes moist mucous membranes Eyes: General: appearance normal, both eyes and all related structures Sclera: sclerae normal Pupils: Equal, round and reactive pupils present Neck: Neck: supple and no JVD Lymphatic: lymphadenopathy not noted Resp: Effort & Inspection: normal respiratory effort Auscultation: clear to auscultation bilaterally Cardio: Rate: regular rate Rhythm: regular rhythm Heart sounds: no gallops, no murmurs and no rubs GI: Inspection: non-distended GI Palp: Yes Soft to palpation and No Tenderness to palpation present (GI) Auscultation: normal bowel sounds Skin: General skin exam: normal color, no rashes or lesions noted and no erythema Lesions: no lesions noted Rashes: no rashes noted Wounds: no wounds Neuro: General: gait normal Speech: normal speech Motor exam (neuro): 5/5 motor strength present throughout and Normal motor muscle tone present throughout Sensory Exam: normal sensation Extrem: General: normal to inspection, no edema and no pedal edema Psych: Mental Status: mental status grossly normal Affect: normal affect Objective Data Vital Signs Vital Signs: Vital Signs - 24 hr 05/03/25 15:29 05/03/25 15:56 05/03/25 18:11 Temperature Pulse Rate 78 66 Respiratory Rate 20 20 16 Blood Pressure 103/57 L 93/57 L Pulse Oximetry 97 99 99 Oxygen Delivery Room Air 05/03/25 19:42 05/03/25 21:18 05/03/25 21:57 Temperature 97.4 F L Pulse Rate 62 Respiratory Rate 19 Blood Pressure 100/49 L Pulse Oximetry 95 95 Oxygen Delivery Room Air Room Air 05/04/25 00:05 05/04/25 04:01 05/04/25 06:00 Temperature 97.1 F L Pulse Rate 66 64 63 Respiratory Rate 14 Blood Pressure 109/57 L Pulse Oximetry 95 Oxygen Delivery 05/04/25 08:00 05/04/25 08:00 05/04/25 08:05 Temperature Pulse Rate 77 Respiratory Rate Blood Pressure Pulse Oximetry 94 94 Oxygen Delivery Room Air Room Air Intake/Output Intake/Output: Intake & Output 07/10/05/02/25 05/03/25 05/04/25 23:59 23:59 23:59 23:59 Intake Total 380 Balance 380 Meds/Results Medications: Active Medications Generic Name Dose Route Start Last Admin Trade Name Freq PRN Reason Stop Dose Admin Acetaminophen 650 mg 05/03/25 17:30 Acetaminophen 325 Mg Tablet PO Q4H PRN Mild Pain (1-3) or Fever Hydrocodone Bitart/Acetaminophen 1 tab 05/03/25 17:30 Hydrocodone/Acetaminophen (*Crx) 5-325 Mg Tablet PO Q4H PRN Pain Rated 4-6 Albuterol 2 puff 05/04/25 08:00 05/04/25 11:32 Albuterol Sulfate (*Sp) Aerosol 1 Puff INHALATION 2 puff Q4HRT YA Administration Amlodipine Besylate 5 mg 05/04/25 09:00 05/04/25 09:24 Amlodipine Besylate 5 Mg Tablet PO 5 mg DAILY YA Administration Gabapentin 600 mg 05/04/25 07:12 Gabapentin 300 Mg Capsule PO TID PRN Pain Guaifenesin 1,200 mg 05/03/25 21:00 05/04/25 09:24 Guaifenesin 12 Hr 600 Mg Tabcr PO 1,200 mg Q12HR YA Administration Azithromycin 500 mg/ Sodium 250 mls @ 250 mls/hr 05/04/25 21:00 Chloride IVPB Q24H YA Sodium Chloride 1,000 mls @ 100 mls/hr 05/03/25 19:25 05/04/25 10:01 Normal Saline Iv IV CONT Not Given .Q10H YA Ceftriaxone Sodium 1 gm/ 50 mls @ 100 mls/hr 05/04/25 23:00 Sodium Chloride IVPB Q24H YA Loratadine 10 mg 05/04/25 09:00 05/04/25 09:24 Loratadine 10 Mg Tablet PO 10 mg QAM YA Administration Losartan Potassium 50 mg 05/04/25 09:00 05/04/25 09:24 Losartan Potassium 50 Mg Tablet PO 50 mg DAILY YA Administration Methocarbamol 500 mg 05/03/25 21:58 05/03/25 22:50 Methocarbamol 500 Mg Tablet PO 500 mg QID PRN Administration Spasms Morphine Sulfate 2 mg 05/03/25 17:30 Morphine Sulfate (*Crx) 2 Mg/Ml Inj IV PUSH Q2H PRN Pain Rated 7-10 Potassium Chloride 20 meq 05/04/25 08:00 05/04/25 09:23 Potassium Chloride 20 Meq Er Tablet PO 20 meq DAILY@0800 YA Administration Promethazine HCl 12.5 mg 05/03/25 17:30 Promethazine Hcl 25 Mg/Ml Ampul IV PUSH Q6H PRN Nausea Vitamin D 50 mcg 05/04/25 09:00 05/04/25 09:23 Cholecalciferol (Vitamin D3) 25 Mcg (1,000 Units) Tablet PO 50 mcg DAILY YA Administration Radiology Results: ITS Impressions Chest X-Ray 05/03/25 16:12 IMPRESSION: Left basilar atelectasis versus pneumonia with no change from previous examination. Head/Neck CTA 05/03/25 16:58 IMPRESSION: 1. Normal CTA head. 2. CTA neck. Percent stenosis per NASCET criteria is 20% on the right and 60% on the left . 3. Left basilar atelectasis versus pneumonia with pleural effusion. Labs Labs: Laboratory Results - last 24 hr 05/03/25 05/03/25 05/03/25 15:47 15:48 16:47 WBC 11.3 H RBC 4.64 Hgb 14.5 Hct 40.9 MCV 88.1 MCH 31.3 MCHC 35.5 RDW 13.1 Plt Count 228 MPV 12.1 H Immature Gran % (Auto) 0.9 H Neut % (Auto) 83.0 H Lymph % (Auto) 7.7 L [place] % (Auto) 8.0 Eos % (Auto) 0.0 Baso % (Auto) 0.4 Lymph # (Auto) 0.87 L [place] # (Auto) 0.9 H Eos # (Auto) 0.0 Baso # (Auto) 0.0 Abs Immat Gran (auto) 0.10 H Absolute Neuts (auto) 9.4 H Absolute Nucleated RBC 0.000 Nucleated RBC % 0.0 Sodium 130 L Potassium 2.3 L* Chloride 91 L Carbon Dioxide 25 Anion Gap 14 H BUN 38 H Creatinine 1.29 H Estim Creat Clear Calc 41 Estimated GFR 41 L Glucose 197 H Lactic Acid 2.7 H Calcium 10.1 Magnesium Total Bilirubin 0.6 AST 95 H ALT 75 H Alkaline Phosphatase 64 Total Protein 7.4 Albumin 3.8 Urine Color Yellow Urine Appearance Cloudy H Urine pH 6.5 Ur Specific [place] 1.022 Urine Protein 1+ H Urine Glucose (UA) Negative Urine Ketones Negative Ur Blood (Man) Negative Urine Nitrate Negative Urine Bilirubin Negative Urine Urobilinogen 0.2 Add Ur Microanalysis Reviewed Leukocyte Esterase Rfl Trace H Urine RBC 0-2 Urine WBC 11-20 H Ur Squamous Epith Cells Moderate Urine Bacteria None seen Urine Casts -05/03/25 05/04/25 20:08 07:20 WBC 11.5 H RBC 4.17 L Hgb 13.1 Hct 38.0 MCV 91.1 MCH 31.4 MCHC 34.5 RDW 13.4 Plt Count 251 MPV 12.0 H Immature Gran % (Auto) 1.4 H Neut % (Auto) 75.0 H Lymph % (Auto) 11.7 L [place] % (Auto) 11.7 H Eos % (Auto) 0.0 Baso % (Auto) 0.2 Lymph # (Auto) 1.35 [place] # (Auto) 1.4 H Eos # (Auto) 0.0 Baso # (Auto) 0.0 Abs Immat Gran (auto) 0.16 H Absolute Neuts (auto) 8.6 H Absolute Nucleated RBC 0.000 Nucleated RBC % 0.0 Sodium 137 Potassium 2.7 L* 3.4 Chloride 100 Carbon Dioxide 27 Anion Gap 10 BUN 31 H Creatinine 0.88 Estim Creat Clear Calc 60 Estimated GFR > 60 Glucose 133 H Lactic Acid 1.7 Calcium 9.7 Magnesium 2.3 Total Bilirubin 0.4 AST 66 H ALT 59 H Alkaline Phosphatase 51 Total Protein 6.4 Albumin 3.3 L Urine Color Urine Appearance Urine pH Ur Specific [place] Urine Protein Urine Glucose (UA) Urine Ketones Ur Blood (Man) Urine Nitrate Urine Bilirubin Urine Urobilinogen Add Ur Microanalysis Leukocyte Esterase Rfl Urine RBC Urine WBC Ur Squamous Epith Cells Urine Bacteria Urine Casts Quality VTE Prophylaxis VTE prophylaxis: mechanical ordered
[2025-05-04] MEDS: SODIUM CHLORIDE 0.9% IV 1,000 ML 100 ML IV CONT (13:04)
[2025-05-04] MEDS: AZITHROMYCIN IV 500 MG in SODIUM CHLORIDE 0.9% IV 250 ML IVPB (20:47)
[2025-05-05] VITALS (9 sets, daily range): BP systolic 105–126; BP diastolic 56–66; PULSE 50–75; RESP 18–20; TEMP 35.8–36.6; O2SAT 95–99
[2025-05-05] MEDS: SODIUM CHLORIDE 0.9% IV 1,000 ML 100 ML IV CONT (00:51)
[2025-05-05] MEDS: cefTRIAXone 1 GM in SODIUM CHLORIDE 0.9% IV 50 ML 100 ML IVPB ×2 (00:52→22:15)
--- NOTE | 2025-05-05 03:53 | PHAR ---
verified HOME MED (Calcium carbonate 600mg/Vitamin-D3 20mcg tablet) TAKE 1 TABLET BY MOUTH ONCE DAILY. Obtained a telephone read-back order from hospitalist. I verified supplement and sent back to [facility] for inpatient use.
--- NOTE | 2025-05-05 04:36 | PC.NURSE ---
Patient telemetry script reading was ranged from [address] Gomez, notified heart rate fluctuated tonight, new orders given for morning labs. Patient is asleep, denies SOB, denies light head, dizziness, and oriented at baseline AOx3. Call light within reach, bed lowest position, fall precaution bed alarm turn on, will continue to monitor progress.
[2025-05-05] MEDS: guaiFENesin 12 HR 600 MG TABCR 1200 MG PO ×2 (08:48→20:22)
[2025-05-05] MEDS: POTASSIUM CHLORIDE 20 MEQ ER TABLET PO (08:48)
[2025-05-05] MEDS: LOSARTAN POTASSIUM 50 MG TABLET PO (08:49)
[2025-05-05] MEDS: LORATADINE 10 MG TABLET PO (08:49)
[2025-05-05 09:00] LABS: Anion Gap 8 mmol/L (4-12); Blood Urea Nitrogen 21 mg/dL (7-17); Calcium 9.0 mg/dL (8.4-10.2); Carbon Dioxide 23 mmol/L (22-30); Chloride 108 mmol/L (98-107); Estimated CRCL calculation 75 ml/min; Estimated Glomerular Filt Rate > 60; Glucose 83 mg/dL (65-110); Potassium 3.2 mmol/L (3.4-5.0); Sodium 139 mmol/L (137-145)
[2025-05-05 09:04] LABS: Magnesium 1.7 mg/dL (1.6-2.3)
--- NOTE | 2025-05-05 09:11 | P.PNIM_ITS ---
Progress Note: A&P Assessment and Plan (1) Pneumonia: Code(s): J18.9 - Pneumonia, unspecified organism Status: Acute Assessment and Plan: Chest XR 05/02: Patchy left lower lobe pneumonia Chest XR 05/03: Left basilar atelectasis versus pneumonia with no change from previous examination. Chest XR 05/04: Left basilar atelectasis versus pneumonia. - started on CAP tx: azithromycin ceftriaxone on 05/04 - Viral PCR: negative Flu/COVID/RSV - Consider ordering legionella, mycoplasma and pneumococcal - no supplemental O2 requirement - IS - Monitor vital signs, I&Os, neuro status and patient is a fall risk - Follow WBC, serum electrolytes, temperature curves and cultures (2) UTI (urinary tract infection): Code(s): N39.0 - Urinary tract infection, site not specified Status: Acute Assessment and Plan: - UA: cloudy appearance with 1+ protein, trace leukocytes, 11-20 WBC, no bacteria. Moderate squamous cells. UA contaminated with moderate Epithelials - UC obtained on 05/04 - No previous micro to be reviewed - started on Rocephin for 05/04 (3) Hypokalemia: Code(s): E87.6 - Hypokalemia Status: Resolved Assessment and Plan: 2.3 on admission Repleted in the emergency room with 40 IV and 60 oral Repeat potassium 2.7 Forty mEq p.o. potassium A.m. BMP 05/04/25: * Resolved K+ 3.4 today 05/05/25: * K 3.2, given 40 meq oral KCl (4) Lactic acid acidosis: Code(s): E87.20 - Acidosis, unspecified Status: Resolved Assessment and Plan: Lactic acid 2.7, resolved after fluid bolus with repeat lactic 1.7 (5) Weakness: Code(s): R53.1 - Weakness Status: Acute Assessment and Plan: Awaiting PT and OT evaluation and treatment plan. Fall precautions Continue to trend and monitor labs and VS. (6) DAYDAY (acute kidney injury): Code(s): N17.9 - Acute kidney failure, unspecified Status: Resolved Assessment and Plan: BUN/Cr 38/1.29 on admission No known history of CKD IV fluids Resolved with IV fluids. BUN/Cr 21/0.69 on am labs (7) Hypertension: Code(s): I10 - Essential (primary) hypertension Status: Acute Assessment and Plan: Chronic, Continue home medications - Amlodipine 5 mg daily - Losartan 50 mg daily - Blood pressures remain stable, continue to monitor Time Spent With Patient Time with patient: 25 - 35 minutes Subjective Date/time seen: 05/05/25 09:11 Interval history: 64 year old female with past medical history of hypertension presents to the hospital for progressive weakness, dizziness and lightheadedness. Patient is pleasant lying comfortably in bed. She endorses slight shortness of breath but states that this is improved since admission. She also notes an ongoing cough that is nonproductive. She has no other complaints denying chest pain, palpitations, nausea/vomiting and abdominal pain. She states that she has been walking through her room with some increased shortness of breath but denies associated weakness, dizziness and lightheadedness. Review of Systems Review of Systems: All systems reviewed & are unremarkable except as noted in HPI and below Exam Narrative: AF HR 75 RR 18 SPO2 99 BP 105/56 General: female in no acute respiratory distress who is nontoxic appearing, lying semi recumbent in bed. HEENT: Normocephalic. Atraumatic. Extraocular movement intact. Sclera clear and anicteric. No facial asymmetry. Chest: Lungs are clear but diminished to the bases to auscultation bilaterally. No wheezes or crackles. CV: Heart was regular rate and rhythm. Abd: Abdomen was soft. Nontender. Nondistended. Positive bowel sounds. No organomegaly or masses. Ext: No clubbing, cyanosis, or edema. DP pulses bilaterally. Neuro: Patient is alert and oriented x4. Speech is clear. Objective Data Vital Signs Vital Signs: Vital Signs - 24 hr 05/04/25 12:00 05/04/25 14:00 05/04/25 16:00 Temperature 97.7 F Pulse Rate 59 L 65 56 L Respiratory Rate 16 Blood Pressure 96/62 L Pulse Oximetry 95 Oxygen Delivery Fraction of Inspired Oxygen 05/04/25 20:01 05/04/25 20:47 05/04/25 21:35 Temperature Pulse Rate 69 70 Respiratory Rate 20 Blood Pressure Pulse Oximetry 99 97 Oxygen Delivery Room Air Room Air Fraction of Inspired Oxygen 21 05/04/25 22:00 05/05/25 00:04 05/05/25 04:01 Temperature 96.5 F L Pulse Rate 65 51 L 50 L Respiratory Rate 18 Blood Pressure 105/63 Pulse Oximetry 99 Oxygen Delivery Fraction of Inspired Oxygen 05/05/25 06:00 Temperature 96.6 F L Pulse Rate 56 L Respiratory Rate 18 Blood Pressure 105/61 Pulse Oximetry 95 Oxygen Delivery Fraction of Inspired Oxygen Intake/Output Intake/Output: Intake & Output 05/02/25 05/03/25 05/04/25 05/05/25 23:59 23:59 23:59 23:59 Intake Total 2930 550 Output Total 600 Balance 2330 550 Meds/Results Medications: Active Medications Generic Name Dose Route Start Last Admin Trade Name Freq PRN Reason Stop Dose Admin Acetaminophen 650 mg 05/03/25 17:30 Acetaminophen 325 Mg Tablet PO Q4H PRN Mild Pain (1-3) or Fever Hydrocodone Bitart/Acetaminophen 1 tab 05/03/25 17:30 Hydrocodone/Acetaminophen (*Crx) 5-325 Mg Tablet PO Q4H PRN Pain Rated 4-6 Albuterol 2 puff 05/04/25 14:59 Albuterol Sulfate (*Sp) Aerosol 1 Puff INHALATION QIDRT PRN Shortness Of Breath Amlodipine Besylate 5 mg 05/04/25 09:00 05/05/25 08:49 Amlodipine Besylate 5 Mg Tablet PO 5 mg DAILY YA Administration Gabapentin 600 mg 05/04/25 07:12 Gabapentin 300 Mg Capsule PO TID PRN Pain Guaifenesin 1,200 mg 05/03/25 21:00 05/05/25 08:48 Guaifenesin 12 Hr 600 Mg Tabcr PO 1,200 mg Q12HR YA Administration Azithromycin 500 mg/ Sodium 250 mls @ 250 mls/hr 05/04/25 21:00 05/04/25 21:47 Chloride IVPB Infused Q24H YA Infusion Sodium Chloride 1,000 mls @ 100 mls/hr 05/03/25 19:25 05/05/25 00:51 Normal Saline Iv IV CONT 100 mls/hr .Q10H YA Administration Ceftriaxone Sodium 1 gm/ 50 mls @ 100 mls/hr 05/04/25 23:00 05/05/25 01:22 Sodium Chloride IVPB Infused Q24H YA Infusion Loratadine 10 mg 05/04/25 09:00 05/05/25 08:49 Loratadine 10 Mg Tablet PO 10 mg QAM YA Administration Losartan Potassium 50 mg 05/04/25 09:00 05/05/25 08:49 Losartan Potassium 50 Mg Tablet PO 50 mg DAILY YA Administration Methocarbamol 500 mg 05/03/25 21:58 05/03/25 22:50 Methocarbamol 500 Mg Tablet PO 500 mg QID PRN Administration Spasms Morphine Sulfate 2 mg 05/03/25 17:30 Morphine Sulfate (*Crx) 2 Mg/Ml Inj IV PUSH Q2H PRN Pain Rated 7-10 Home Med (Calcium 1 each 05/05/25 09:00 Carbonate 600mg/ BY MOUTH 06/04/25 08:59 Vitamin-D3 20mcg DAILY YA Tablet) Potassium Chloride 20 meq 05/04/25 08:00 05/05/25 08:48 Potassium Chloride 20 Meq Er Tablet PO 20 meq DAILY@0800 YA Administration Promethazine HCl 12.5 mg 05/03/25 17:30 Promethazine Hcl 25 Mg/Ml Ampul IV PUSH Q6H PRN Nausea Radiology Results: ITS Impressions Head/Neck CTA 05/03/25 16:58 IMPRESSION: 1. Normal CTA head. 2. CTA neck. Percent stenosis per NASCET criteria is 20% on the right and 60% on the left . 3. Left basilar atelectasis versus pneumonia with pleural effusion. Chest X-Ray 05/05/25 08:24 IMPRESSION: Left basilar atelectasis versus pneumonia. Labs Labs: Laboratory Results - last 24 hr 05/05/25 07:13 Sodium 139 Potassium 3.2 L Chloride 108 H Carbon Dioxide 23 Anion Gap 8 BUN 21 H D Creatinine 0.69 L Estim Creat Clear Calc 75 Estimated GFR > 60 Glucose 83 Calcium 9.0 Magnesium 1.7 Quality VTE Prophylaxis VTE prophylaxis: mechanical ordered
[2025-05-05] MEDS: [UNRECOGNIZED DRUG - OTHER] BY MOUTH (09:35)
[2025-05-05] MEDS: CALCIUM CARBONATE BY MOUTH (09:35)
[2025-05-05 11:17] LABS: Influenza A QL RT-PCR Negative (Negative); Influenza B QL RT-PCR Negative (Negative); RSV RNA, RT-PCR Negative (Negative); SARS-CoV-2 RNA PCR Negative (Negative)
[2025-05-05] MEDS: AZITHROMYCIN IV 500 MG in SODIUM CHLORIDE 0.9% IV 250 ML IVPB (20:22)
[2025-05-05] MEDS: HYDROcodone/acetaminophen (*CRX) 5-325 MG TABLET 1 TAB PO (20:36)
[2025-05-06 00:04] VITALS: PULSE 50
[2025-05-06 04:00] VITALS: PULSE 51
[2025-05-06 04:45] VITALS: BP 130/73; PULSE 66; RESP 18; TEMP 36.6; O2SAT 95
[2025-05-06 07:51] LABS: Hematocrit 37.9 % (37.0-47.0); Hemoglobin 12.6 g/dL (12.0-15.0); Mean Corpuscular HGB Conc 33.2 g/dl (32-36); Mean Corpuscular Hemoglobin 31.2 pg (26-34); Mean Corpuscular Volume 93.8 fl (80-100); Platelet Count Result 317 k/mm3 (150-375); Red Blood Count 4.04 M/mm3 (4.2-5.4); White Blood Count 7.8 K/mm3 (4.5-10.0)
[2025-05-06 08:00] VITALS: PULSE 53
[2025-05-06 08:05] LABS: Alanine Aminotransferase 64 U/L (6-35); Albumin Level 3.1 g/dL (3.5-5.1); Alkaline Phosphatase 47 U/L (38-126); Anion Gap 6 mmol/L (4-12); Aspartate Amino Transferase 88 U/L (14-36); Bilirubin,Total 0.4 mg/dL (0.2-1.3); Blood Urea Nitrogen 16 mg/dL (7-17); Calcium 9.3 mg/dL (8.4-10.2); Carbon Dioxide 24 mmol/L (22-30); Chloride 109 mmol/L (98-107); Estimated CRCL calculation 83 ml/min; Estimated Glomerular Filt Rate > 60; Glucose 87 mg/dL (65-110); Potassium 3.9 mmol/L (3.4-5.0); Sodium 139 mmol/L (137-145); Total Protein 5.9 g/dL (6.3-8.2)
[2025-05-06] MEDS: LOSARTAN POTASSIUM 50 MG TABLET PO (08:13)
[2025-05-06] MEDS: guaiFENesin 12 HR 600 MG TABCR 1200 MG PO (08:13)
[2025-05-06] MEDS: LORATADINE 10 MG TABLET PO (08:13)
[2025-05-06] MEDS: [UNRECOGNIZED DRUG - OTHER] BY MOUTH (08:15)
[2025-05-06] MEDS: CALCIUM CARBONATE BY MOUTH (08:15)
[2025-05-06] MEDS: POTASSIUM CHLORIDE 20 MEQ ER TABLET PO (08:16)
--- NOTE | 2025-05-06 16:05 | P.DS_ITS ---
DS: Admitting Diagnosis Discharge Date 05/06/25 Admitting Diagnosis pneumonia UTI Hypokalemia Lactic acid acidosis Weakness DAYDAY HTN DS: Discharge Diagnosis Discharge Diagnosis (1) Pneumonia: Code(s): J18.9 - Pneumonia, unspecified organism Status: Acute (2) UTI (urinary tract infection): Code(s): N39.0 - Urinary tract infection, site not specified Status: Acute (3) Hypokalemia: Code(s): E87.6 - Hypokalemia Status: Resolved (4) Lactic acid acidosis: Code(s): E87.20 - Acidosis, unspecified Status: Resolved (5) Weakness: Code(s): R53.1 - Weakness Status: Acute (6) DAYDAY (acute kidney injury): Code(s): N17.9 - Acute kidney failure, unspecified Status: Resolved (7) Hypertension: Code(s): I10 - Essential (primary) hypertension Status: Acute DS: Summary Hospital Course Reason for hospitalization: pneumonia UTI Hypokalemia Lactic acid acidosis Weakness DAYDAY HTN Hospital Course: 64 year old female with past medical history of hypertension presents to the hospital for progressive weakness, dizziness and lightheadedness. Not meeting sepsis criteria on admission. Patient was noted to be hypokalemic on admission and was given IV and oral supplementation. Hypokalemia resolved during admission. Patient was noted to have an elevated lactic which resolved with a fluid bolus. She was also noted to have a slight DAYDAY which also resolved with the IV fluids. Chest x-rays throughout admission were showing left basilar pneumonia. Patient was started on IV antibiotics at that time. She had a head/neck CTA obtained which was unremarkable. Patient had a urine sample that was slightly concerning for a urinary tract infection however possible contaminant given moderate epithelial cells present. The urine culture is still pending. Patient was discharged home on oral antibiotics for pneumonia and cocurrent UTI. Discussed with her that if any antibiotic change needs to be made she will receive a phone call and the antibiotic will be sent to her pharmacy. She states understanding and is comfortable with discharging at this time. Patient states that she feels back to her baseline. During assessment she was able to ambulate 120 ft through the hallway denying any dizziness/lightheadedness or weakness. She has no complaints at time of discharge denying chest pain, shortness a breath, palpitations, nausea/vomiting, abdominal pain, and any urinary tract infection like symptoms. Patient discharged home in a stable condition. She has a follow-up with her primary care provider in 1 week. Status at Discharge Functional status at discharge: independent ambulation Time Spent with Patient Time attestation: Total time spent providing and/or coordinating discharge services: Time spent: Greater than 30 minutes Exam Narrative: AF HR 66 RR 18 SpO2 95 BP 130/73 General: female in no acute respiratory distress who is nontoxic appearing, sitting up in bed. Walked in the hallway 120ft independently without ambulatory device. HEENT: Normocephalic. Atraumatic. Extraocular movement intact. Sclera clear and anicteric. No facial asymmetry. Chest: Lungs are clear auscultation bilaterally. No wheezes or crackles. CV: Heart was regular rate and rhythm. Abd: Abdomen was soft. Nontender. Nondistended. Positive bowel sounds. Ext: No clubbing, cyanosis, or edema. DP pulses bilaterally. Neuro: Patient is alert and oriented x4. Speech is clear. DS: Data Data Completed and Pending Completed studies during hospitalization: Chest XR Head/neck CTA Chest XR Pending studies at discharge: Urine culture Labs on day of discharge: Labs from last 24 hours 05/06/25 07:41 WBC 7.8 RBC 4.04 L Hgb 12.6 Hct 37.9 MCV 93.8 MCH 31.2 MCHC 33.2 RDW 13.9 Plt Count 317 MPV 11.3 H Sodium 139 Potassium 3.9 Chloride 109 H Carbon Dioxide 24 Anion Gap 6 BUN 16 Creatinine 0.61 L Estim Creat Clear Calc 83 Estimated GFR > 60 Glucose 87 Calcium 9.3 Total Bilirubin 0.4 AST 88 H ALT 64 H Alkaline Phosphatase 47 Total Protein 5.9 L Albumin 3.1 L Preliminary micro results at discharge 05/03/25 20:08 Blood Culture - Preliminary Blood 05/03/25 20:18 Blood Culture - Preliminary Blood Discharge Plan Discharge Attending physician on discharge: Taqueria Cook Consulting providers: Smiley Goodman Discharging Clinician: Smiley Goodman Anticipated Discharge Date/Time: 05/06/25 13:12 Patient Disposition: Home Activity: as tolerated Diet: as tolerated and heart healthy Discharge Instructions: Discharge disposition: Patient was admitted to the hospital for pneumonia Take medications as prescribed Augmentin twice a day, course to be completed on 05/10 Azithromycin daily Attached information on these medications During admission there was slight concern for a possible urinary tract infection Cultures are pending, if return positive and need to adjust antibiotics one will be sent to your pharmacy and you will receive a phone call Eat well balanced meals and stay hydrated Keep active to remain strong Avoid use of diapers or pads Good donnie Care every 2 hours Trend urine output Monitor blood pressures Take caution while standing, rising, or moving Change positions slowly taking a break between each position change If you standing feel dizzy sit back down and take a break Encouraged to continue with yearly vaccinations Return to the emergency department if he developed sudden shortness of breath, chest pain, nausea, vomiting, upset stomach or intractable diarrhea Return to the emergency department if you develop fever greater than 101.5 Follow-up with the primary care physician within 1-2 weeks Thank you for choosing [facility] for your healthcare needs Patient Instructions: Antibiotic Form, Amoxicillin/Clavulanate Potassium (By mouth), Azithromycin (By mouth), Pneumonia (DC) Patient Language: Azerbaijani Stand Alone Forms: General Discharge Information Follow-up/Referrals: Ivelisse,MARGO Shields [Primary Care Provider] - 1 Week Discharge Medications: New amoxicillin-pot clavulanate 875-125 mg tablet 1 tablet PO Q12H Qty: 10 0RF Continued losartan 50 mg tablet 50 mg PO DAILY cetirizine 10 mg tablet 10 mg PO DAILY amlodipine 5 mg tablet 5 mg PO DAILY hydrochlorothiazide 25 mg tablet 25 mg PO DAILY gabapentin 600 mg tablet 600 mg PO TID PRN (Reason: Pain) cholecalciferol (vitamin D3) [Vitamin D3] 25 mcg (1,000 unit) capsule 50 mcg PO DAILY albuterol sulfate 90 mcg/actuation HFA aerosol inhaler 2 inh INHALATION Q4H azithromycin 250 mg tablet 500 mg PO DAILY Rx Instructions: Take 2 tablets by mouth on day 1, then take 1 tablet by mouth daily for 4 days. methylprednisolone 4 mg tablets,dose pack 4 mg PO .ZPak Date of admission: 05/04/25 15:04 Primary Care Provider: IvelisseCornelius Admitting Provider: Taqueria Cook Attending physician on admission: Taqueria Cook Condition: Stable Hospitalist MIPS Heart Failure (Exclusion) Patient has history of Heart Transplant or Left Ventricular Assistive Device?: No IF YES, STOP HERE Heart Failure (Qualifier) Patient has current or prior documentation of LVEF less than or equal to 40%, or mod/servere depressed LVSF?: No IF NO, STOP HERE
--- NOTE | 2025-05-07 10:35 | PC.NURSE ---
Urine cx shows no growth.
== END 2025-05-06 13:52 | disposition home or self-care (01) | DRG 194 ==
LOC: ANHED 17:47 → ANH3MEDSUR 18:18
PROVIDERS: Emergency Medicine; General Practice; Nurse Practitioner Adult Health; Nurse Practitioner Gerontology; Admitting Provider Internal Medicine; Emergency Provider Emergency Medicine; PCP Registered Nurse; Visit Provider Student in an Organized Health Care Education/Training Program
DX: J18.9 Pneumonia, unspecified organism (principal); E87.20 Acidosis, unspecified; N17.9 Acute kidney failure, unspecified; N39.0 Urinary tract infection, site not specified; I10 Essential (primary) hypertension; E87.6 Hypokalemia; Z87.891 Personal history of nicotine dependence; Z20.822 Contact with and (suspected) exposure to COVID-19
CPT/HCPCS: 36415; 70496; 70498; 71046; 80048; 80053; 81001; 83605; 83735; 84132; 85025; 85027; 87040; 87086; 87637; 93005; 94640; 96361; 96365; 96366; 96367; 96368; 96375; 99285; A9270; G0378; J0456; J0696; J3480; J7030; J7040; J7050; Q9967